=== PATIENT | male | born 1940 | race Two or more races ===

== ENCOUNTER 2017-12-29 13:41 | Inpatient (IN) | payer MEDICARE, OTHER ==
[2017-12-29 13:57] VITALS: BMI 23.7
--- NOTE | 2017-12-29 14:39 | PDOC ---
History of Present Illness - General History Source: Patient - History of Present Illness Initial Comments: 12/29/17 16:03 The patient is a 77-year-old male with a significant past medical history of Parkinsons disease, who presents to the emergency department from his GI doctor with weakness and loss of appetite. As per daughter, the patient has not been eating or drinking well for the past week. The patient reports that this is due to increased difficulty swallowing and loss of appetite. Patients daughter states he is gasping when he attempts to swallow, and therefore has difficulty taking his Parkinsons medications. The daughter states the patient has been having difficulty breathing at night for two weeks. The patient states he is tired and has been sleeping a lot, but denies any significant pain. Patient also admits to constipation and mild dysuria. Patient is ambulatory with a cane at baseline. The patient denies chest pain, leg swelling, headache, visual changes, and dizziness. The patient denies fever, chills, abdominal pain, nausea, vomit, and diarrhea. The patient denies frequency, urgency and hematuria.He denies any chest pain, back pain. Allergies: penicillins Social History: No toxic habits reported PCP: Dr. Susan Jimenez <Jyoti Carpenter - Last Filed: 12/29/17 16:03> <Sunita Zamorano - Last Filed: 12/29/17 20:33> <Ariel Kline - Last Filed: 12/30/17 08:26> - General Chief Complaint: Weakness Stated Complaint: BLOOD PRESSURE PROBLEM (PCP SENT) Time Seen by Provider: 12/29/17 14:15 Past History <Jyoti Carpenter - Last Filed: 12/29/17 16:03> <Sunita Zamorano - Last Filed: 12/29/17 20:33> - Past Medical History COPD: No HTN: Yes Other medical history: PARKINSON, ON COUMADIN FOR BLEED CLOTTING DISORDER - Surgical History Abdominal Surgery: Yes (ING HERNIA) - Suicide/Smoking/Psychosocial Hx Smoking History: Never smoked Have you smoked in the past 12 months: No Information on smoking cessation initiated: No Hx Alcohol Use: No Drug/Substance Use Hx: No Substance Use Type: None <Ariel Kline - Last Filed: 12/30/17 08:26> - Past Medical History Allergies/Adverse Reactions: Allergies Allergy/AdvReac Type Severity Reaction Status Date / Time Penicillins Allergy Verified 12/29/17 13:52 Home Medications: Ambulatory Orders Atorvastatin Ca [Lipitor] 80 mg PO HS 12/29/17 Carbidopa/Levodopa *Cr* 50/200 [Sinemet *Cr* 50/200 -] 1 combo PO BID 12/29/17 Carbidopa/Levodopa 25/100 [Sinemet 25/100 -] 1 each PO TID 12/29/17 Diphenhydramine [Benadryl -] 25 mg PO DAILY 12/29/17 Losartan Potassium 100 mg PO DAILY 12/29/17 Metoprolol Succinate 50 mg PO DAILY 12/29/17 Omeprazole 40 mg PO DAILY 12/29/17 Rasagiline Mesylate 1 mg PO DAILY 12/29/17 Ropinirole HCl 0.5 mg PO DAILY 12/29/17 Ropinirole HCl [Ropinirole ER] 2 mg PO DAILY 12/29/17 Tamsulosin HCl 0.4 mg PO DAILY 12/29/17 Warfarin Sodium [Coumadin] 1 mg PO ASDIR 12/29/17 Warfarin Sodium [Coumadin] 4 mg PO ASDIR 12/29/17 Review of Systems - Review of Systems Able to Perform ROS?: Yes Comments:: 12/29/17 16:04 CONSTITUTIONAL: (+) Generalized Weakness, (+) Loss of Appetite No reported: Fever, Chills, Diaphoresis, Malaise HEENT: (+) Difficulty Swallowing No reported: Rhinorrhea, Nasal Congestion, Throat Pain, Throat Swelling, Mouth Swelling, Ear Pain, Eye Pain, Visual Changes CARDIOVASCULAR: No reported: Chest Pain, Syncope, Palpitations, Irregular Heart Rate, Lightheadedness, Peripheral Edema RESPIRATORY: (+) Shortness of Breath No reported: Cough, SOB with Exertion, Orthopnea, Wheezing, Stridor, Hemoptysis GASTROINTESTINAL: No reported: Abdominal pain, Abdominal Distension, Nausea, Vomiting, Diarrhea, Constipation, Melena, Hematochezia GENITOURINARY: (+) Dysuria No reported: Frequency, Urgency, Hesitancy, Flank Pain, Genital Pain MUSCULOSKELETAL: No reported: Myalgia, Arthralgia, Joint Swelling, Back pain, Neck Pain SKIN: No reported: Rash, Itching, Pallor HEMEATOLOGIC/IMMUNOLOGIC: No reported: Easy Bleeding, Easy Bruising, Lymphadenopathy, Frequent infections ENDOCRINE: No reported: Unexplained Weight Gain, Unexplained Weight Loss, Heat Intolerance , Cold Intolerance NEUROLOGIC: No reported: Headache, Focal Weakness, Paresthesias, Vertigo, Lightheadedness, Unsteady Gait, Seizure, Mental Status Changes, Incontinence PSYCHIATRIC: No reported: Anxiety, Depression <CarpenterSommerJyoti - Last Filed: 12/29/17 16:03> *Physical Exam - Vital Signs Last Vital Signs Temp Pulse Resp BP Pulse Ox 99.2 F 97 H 16 153/105 100 12/29/17 14:24 12/29/17 15:52 12/29/17 13:53 12/29/17 15:52 12/29/17 13:53 - Physical Exam Comments: 12/29/17 16:05 GENERAL: The patient is awake, alert, and fully oriented, Nontoxic - in no acute distress. HEAD: Normocephalic, atraumatic. EYES: extraocular movements intact, sclera anicteric, conjunctiva clear. ENT: Normal voice, drymucous membranes. NECK: Normal range of motion, supple LUNGS: Breath sounds equal, clear to auscultation bilaterally. No wheezes, no rhonchi, no rales. HEART: irregular ABDOMEN: Soft, nontender, No CVA tenderness EXTREMITIES: Normal range of motion, no edema. No clubbing or cyanosis. No cords, erythema, or tenderness. NEUROLOGICAL: No facial assymetry, Normal speech, PSYCH: Normal mood, normal affect. SKIN: Warm, Dry, normal turgor, <Kp Carpentera - Last Filed: 12/29/17 16:03> - Vital Signs Last Vital Signs Temp Pulse Resp BP Pulse Ox 99.2 F 85 20 187/110 100 12/29/17 14:24 12/29/17 19:11 12/29/17 19:11 12/29/17 19:11 12/29/17 19:11 <Sunita Zamorano - Last Filed: 12/29/17 20:33> - Vital Signs Last Vital Signs Temp Pulse Resp BP Pulse Ox 99.2 F 107 H 16 172/121 100 12/29/17 14:24 12/29/17 13:53 12/29/17 13:53 12/29/17 13:53 12/29/17 13:53 <Ariel Kline - Last Filed: 12/30/17 08:26> Heart Score/ECG Review - ECG Impressions Comment:: 12/29/17 15:33 Twelve-lead EKG was performed and reviewed by me. rate of [address] changes suggestif of ischemia impression: afib <Ariel Kline - Last Filed: 12/30/17 08:26> ED Treatment Course - LABORATORY CBC & Chemistry Diagram: 12/29/17 14:44 12/29/17 14:44 - ADDITIONAL ORDERS Additional order review: Laboratory Results 12/29/17 12/29/17 14:44 14:44 Sodium 137 Potassium 3.6 Chloride 101 Carbon Dioxide 27 Anion Gap 9 BUN 18 Creatinine 0.9 Creat Clearance w eGFR > 60 Random Glucose 91 Calcium 8.4 L Total Bilirubin 0.5 AST 20 ALT 12 Alkaline Phosphatase 127 H Creatine Kinase 81 Troponin I 0.02 B-Natriuretic Peptide 1838.72 H Total Protein 7.9 Albumin 3.8 12/29/17 14:44 RBC 4.81 MCV 90.2 MCHC 33.7 RDW 13.6 MPV 8.3 Neutrophils % 71.8 Lymphocytes % 12.3 Monocytes % 8.8 Eosinophils % 6.4 H Basophils % 0.7 <Jyoti Carpenter - Last Filed: 12/29/17 16:03> - LABORATORY CBC & Chemistry Diagram: 12/29/17 14:44 12/29/17 14:44 - ADDITIONAL ORDERS Additional order review: Laboratory Results 12/29/17 12/29/17 12/29/17 14:44 14:44 14:44 Sodium 137 Potassium 3.6 Chloride 101 Carbon Dioxide 27 Anion Gap 9 BUN 18 Creatinine 0.9 Creat Clearance w eGFR > 60 Random Glucose 91 Calcium 8.4 L Total Bilirubin 0.5 AST 20 ALT 12 Alkaline Phosphatase 127 H Creatine Kinase 81 Troponin I 0.02 B-Natriuretic Peptide 1838.72 H Total Protein 7.9 Albumin 3.8 Urine Color Yellow Urine Appearance Clear Urine pH 7.0 Ur Specific [place] 1.015 Urine Protein 1+ H Urine Glucose (UA) Negative Urine Ketones Negative Urine Blood Negative Urine Nitrite Negative Urine Bilirubin Negative Urine Urobilinogen Negative Ur Leukocyte Esterase Negative Urine WBC (Auto) <1 Urine RBC (Auto) 3 Ur Epithelial Cells Rare 12/29/17 14:44 RBC 4.81 MCV 90.2 MCHC 33.7 RDW 13.6 MPV 8.3 Neutrophils % 71.8 Lymphocytes % 12.3 Monocytes % 8.8 Eosinophils % 6.4 H Basophils % 0.7 - Medications Given in the ED: ED Medications Discontinued Medications Generic Name Dose Route Start Last Admin Trade Name Rosemary PRN Reason Stop Dose Admin Furosemide 40 mg 12/29/17 16:46 12/29/17 19:17 Lasix Injection - IVPUSH 12/29/17 16:47 40 mg ONCE ONE Administration <Sunita Zamorano - Last Filed: 12/29/17 20:33> - LABORATORY CBC & Chemistry Diagram: 12/30/17 06:30 12/30/17 06:30 <Ariel Kline - Last Filed: 12/30/17 08:26> Medical Decision Making - Medical Decision Making 12/29/17 14:40 77y M hx of htn, severe parkinsons presents sent by GI for evaluation of possible dehydration. pt has been having difficult swallowing, and family notes pt has been eating/drinking much less. pt also notes some mild sob when he is abmulating. n oothe rfocal complaints including cp, abd pain, n/v, headache diarrhea, dysuria, hematuria. on exam he has a nonfocal exam will r/o metabolic dernagement A portion of this note was documented by scribe services under my direction. I have reviewed the details of the note, within reason, and agree with the documentation with the following case summary and management plan written by me 12/29/17 17:[address] wallace - was sent to him due to difficulty swallowing, and he came in with a towl on his chest he requests a CT of the chets to r/o mass will likely admit the pt for further management pmd is dr. jimenez, if admitted will likely be under dr. kuhn service case signed out to dr. zamorano to fu with results and dispo the pt <Ariel Kline - Last Filed: 12/30/17 08:26> *DC/Admit/Observation/Transfer - Attestations Scribe Attestion: 12/29/17 16:05 Documentation prepared by Jyoti Carpenter, acting as biomedical specialist for Ariel Kline MD, /DO. <Jyoti Carpenter - Last Filed: 12/29/17 16:03> - Discharge Dispostion Admit: Yes <Sunita Zamorano - Last Filed: 12/29/17 20:33> <Ariel Kline - Last Filed: 12/30/17 08:26> Diagnosis at time of Disposition: Poorly controlled blood pressure, Parkinson disease Dysphagia Qualifiers: Dysphagia type: unspecified Qualified Code(s): R13.10 - Dysphagia, unspecified
[2017-12-29 15:01] LABS: BASO % 0.7 % (0-2.0); EOS % 6.4 % (0-4.5); HEMATOCRIT 43.4 % (35.4-49); HEMOGLOBIN 14.6 GM/dL (11.7-16.9); LYMPH % 12.3 % (8-40); MCH 30.4 pg (25.7-33.7); MCHC 33.7 g/dl (32.0-35.9); MEAN CELL VOLUME 90.2 fl (80-96); MEAN PLT VOLUME 8.3 fl (7.5-11.1); MONO % 8.8 % (3.8-10.2); NEUT % 71.8 % (42.8-82.8); PLATELET COUNT 221 K/MM3 (134-434); RBC 4.81 M/mm3 (4.00-5.60); RDW 13.6 % (11.9-15.9); WHITE BLOOD COUNT 10.3 K/mm3 (4.0-10.0)
[2017-12-29 15:26] LABS: ALBUMIN 3.8 g/dl (3.4-5.0); ANION GAP 9 (8-16); BILIRUBIN,TOTAL 0.5 mg/dL (0.2-1.0); BLOOD UREA NITROGEN 18 mg/dL (7-18); CALCIUM 8.4 mg/dL (8.5-10.1); CHLORIDE 101 mmol/L (98-107); CO2 27 mmol/L (21-32); CREATININE 0.9 mg/dL (0.7-1.3); GLUCOSE,RANDOM 91 mg/dL (74-106); POTASSIUM 3.6 mmol/L (3.5-5.1); SGPT/ALT 12 U/L (12-78); SODIUM 137 mmol/L (136-145); TOT PROT 7.9 g/dl (6.4-8.2)
[2017-12-29 15:29] LABS: ALK PHOS 127 U/L (45-117); SGOT/AST 20 U/L (15-37)
[2017-12-29 16:00] LABS: URINE APPEARANCE CLEAR; URINE BILIRUBIN NEGATIVE (NEGATIVE); URINE BLOOD NEGATIVE (NEGATIVE); URINE COLOR YELLOW; URINE GLUCOSE (UA) NEGATIVE (NEGATIVE); URINE KETONE NEGATIVE (NEGATIVE); URINE LEUK ESTERASE NEGATIVE (NEGATIVE); URINE NITRITE NEGATIVE (NEGATIVE); URINE UROBILINOGEN NEGATIVE mg/dL (0.2-1.0)
[2017-12-29 16:04] LABS: URINE PROTEIN 1+ (NEGATIVE)
[2017-12-29] MEDS ORDERED: FUROSEMIDE 40 MG/4 ML INJECTABLE VIAL IVPUSH ONE (16:46)
[2017-12-29 17:07] LABS: EPI CELLS RARE /HPF (FEW)
[2017-12-29] MEDS ORDERED: FUROSEMIDE 40 MG/4 ML INJECTABLE VIAL ONE (19:12)
[2017-12-29] MEDS ORDERED: amLODIPine BESYLATE 10 MG TABLET (FP) PO ONE (20:28)
[2017-12-29] MEDS ORDERED: amLODIPine BESYLATE 5 MG TABLET (FP) ONE (20:30)
[2017-12-29] MEDS ORDERED: METOPROLOL TARTRATE 5 MG/5 ML VIAL IVPUSH ONE ×2 (20:31→23:58)
[2017-12-29] MEDS ORDERED: METOPROLOL TARTRATE 5 MG/5 ML VIAL ONE (20:32)
--- NOTE | 2017-12-29 20:34 | HP ---
Admitting History and Physical - Primary Care Physician PCP: Susan Martinez - Admission Chief Complaint: Weakness, Dysphagia History of Present Illness: This is a 77 y/o man with a significant past medical history of Parkinson's disease. Who presents to the emergency department from his GI doctor with weakness and loss of appetite. Per ED record: As per daughter, the patient has not been eating or drinking well for the past week. The patient reports that this is due to increased difficulty swallowing and loss of appetite. Patients daughter states he is gasping when he attempts to swallow, and therefore has difficulty taking his Parkinsons medications. The daughter states the patient has been having difficulty breathing at night for two weeks. The patient states he is tired and has been sleeping a lot, but denies any significant pain. Patient also admits to constipation and mild dysuria. Patient is ambulatory with a cane at baseline. The patient denies chest pain, leg swelling, headache, visual changes, and dizziness. The patient denies fever, chills, abdominal pain, nausea, vomit, and diarrhea. The patient denies frequency, urgency and hematuria.He denies any chest pain, back pain. 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 - Smoking History Smoking history: Never smoked Have you smoked in the past 12 months: No - Alcohol/Substance Use Hx Alcohol Use: No History of Substance Use: reports: None - Social History Usual Living Arrangement: Yes: With Child ADL: Family Assistance History of Recent Travel: No Home Medications - Allergies Allergies/Adverse Reactions: Allergies Allergy/AdvReac Type Severity Reaction Status Date / Time Penicillins Allergy Verified 12/29/17 13:52 - Home Medications Home Medications: Ambulatory Orders Atorvastatin Ca [Lipitor] 80 mg PO HS 12/29/17 Carbidopa/Levodopa *Cr* 50/200 [Sinemet *Cr* 50/200 -] 1 combo PO BID 12/29/17 Carbidopa/Levodopa 25/100 [Sinemet 25/100 -] 1 each PO TID 12/29/17 Diphenhydramine [Benadryl -] 25 mg PO DAILY 12/29/17 Losartan Potassium 100 mg PO DAILY 12/29/17 Metoprolol Succinate 50 mg PO DAILY 12/29/17 Omeprazole 40 mg PO DAILY 12/29/17 Rasagiline Mesylate 1 mg PO DAILY 12/29/17 Ropinirole HCl 0.5 mg PO DAILY 12/29/17 Ropinirole HCl [Ropinirole ER] 2 mg PO DAILY 12/29/17 Tamsulosin HCl 0.4 mg PO DAILY 12/29/17 Warfarin Sodium [Coumadin] 1 mg PO ASDIR 12/29/17 Warfarin Sodium [Coumadin] 4 mg PO ASDIR 12/29/17 Family Disease History - Family Disease History Family History: Unable to Obtain Review of Systems Unable to obtain ROS, reason: Clinical Condition Physical Examination Vital Signs: Vital Signs Temperature 99.2 F 12/29/17 14:24 Pulse Rate 85 12/29/17 19:11 Respiratory Rate 20 12/29/17 19:11 Blood Pressure 187/110 12/29/17 19:11 O2 Sat by Pulse Oximetry (%) 100 12/29/17 19:11 Constitutional: Yes: No Distress, Calm, Thin Eyes: Yes: WNL, Conjunctiva Clear, EOM Intact, PERRL HENT: Yes: WNL, Atraumatic, Normocephalic Neck: Yes: WNL, Supple, Trachea Midline Cardiovascular: Yes: Pulse Irregular, Murmur, S1, S2 Respiratory: Yes: WNL, Regular, CTA Bilaterally Gastrointestinal: Yes: WNL, Normal Bowel Sounds, Soft ...Rectal Exam: Yes: Deferred Renal/: Yes: [place] Present (yellow urine in drainage bag) Breast(s): Yes: WNL Musculoskeletal: Yes: WNL Extremities: Yes: WNL Edema: No Peripheral Pulses WNL: Yes Neurological: Yes: Alert, Oriented, Weakness ...Motor Strength: LUE (3/5), LLE (3/5), RUE (3/5), RLE (3/5) Psychiatric: Yes: WNL, Alert, Oriented Labs: CBC, BMP 12/29/17 14:44 12/29/17 14:44 Intake & Output 12/27/17 12/28/17 12/29/17 12/30/17 23:59 23:59 23:59 23:59 Output Total 400 Balance -400 Weight 77.111 kg Laboratory Results - last 24 hr 12/29/17 12/29/17 12/29/17 14:44 14:44 14:44 WBC 10.3 H RBC 4.81 Hgb 14.6 Hct 43.4 MCV 90.2 MCH 30.4 MCHC 33.7 RDW 13.6 Plt Count 221 MPV 8.3 Neutrophils % 71.8 Lymphocytes % 12.3 Monocytes % 8.8 Eosinophils % 6.4 H Basophils % 0.7 PT with INR INR Sodium 137 Potassium 3.6 Chloride 101 Carbon Dioxide 27 Anion Gap 9 BUN 18 Creatinine 0.9 Creat Clearance w eGFR > 60 Random Glucose 91 Calcium 8.4 L Total Bilirubin 0.5 AST 20 ALT 12 Alkaline Phosphatase 127 H Creatine Kinase 81 Troponin I 0.02 B-Natriuretic Peptide Total Protein 7.9 Albumin 3.8 Urine Color Yellow Urine Appearance Clear Urine pH 7.0 Ur Specific [place] 1.015 Urine Protein 1+ H Urine Glucose (UA) Negative Urine Ketones Negative Urine Blood Negative Urine Nitrite Negative Urine Bilirubin Negative Urine Urobilinogen Negative Ur Leukocyte Esterase Negative Urine WBC (Auto) <1 Urine RBC (Auto) 3 Ur Epithelial Cells Rare 12/29/17 12/29/17 14:44 20:20 WBC RBC Hgb Hct MCV MCH MCHC RDW Plt Count MPV Neutrophils % Lymphocytes % Monocytes % Eosinophils % Basophils % PT with INR 57.50 H INR 5.09 H* Sodium Potassium Chloride Carbon Dioxide Anion Gap BUN Creatinine Creat Clearance w eGFR Random Glucose Calcium Total Bilirubin AST ALT Alkaline Phosphatase Creatine Kinase Troponin I B-Natriuretic Peptide 1838.72 H Total Protein Albumin Urine Color Urine Appearance Urine pH Ur Specific [place] Urine Protein Urine Glucose (UA) Urine Ketones Urine Blood Urine Nitrite Urine Bilirubin Urine Urobilinogen Ur Leukocyte Esterase Urine WBC (Auto) Urine RBC (Auto) Ur Epithelial Cells Imaging - Results EKG: Image Reviewed (Afib 98 QT/QTc 350/449) Problem List - Problems (1) Uncontrolled hypertension Code(s): I10 - ESSENTIAL (PRIMARY) HYPERTENSION (2) DVT prophylaxis Code(s): [id number] - (3) Dysphagia Code(s): R13.10 - DYSPHAGIA, UNSPECIFIED Qualifiers: Dysphagia type: unspecified Qualified Code(s): R13.10 - Dysphagia, unspecified (4) Parkinson disease Code(s): G20 - PARKINSON'S DISEASE Assessment/Plan This is a 77 y/o man with a PMHx of Parkinson's Disease, Afib ( on Coumadin). Admitted to [facility] for Dysphagia, Generalized Weakness. Problems: Dysphagia Hypertensive Urgency Generalized Weakness Supratherapeutic INR Afib Parkinson's Disease Plan: 1. GI Dysphagia Appreciate GI consult EGD Swallow Eval NPO 2. Cardiology Hypertensive Urgency Afib Likely secondary to dysphagia Lopressor IV Cardiology Consult EKG reviewed- Afib rate control Patient upgraded to Tele secondary to Hypertensive Urgency Patient's BP 190s-200s/100s-120s, after Lopressor IV x2, Labetolol IV x2- started patient on Labetolol Drip this am [id number]-Discussed case with Dr. Soliman, who accepted the patient to ICU Per recommendation, NGT for BP meds will wait till INR reviewed secondary to Supratherapeutic 5.0 3. Neuro Parkinson's, Generalized Weakness: likely secondary to dehydration, poor appetite neuro checks, fall precautions, monitor vitals 4.Heme Supratherapeutic INR- Hold Coumadin, no active bleed Serial INRs Fall Precautions FEN NS@30cc/hr Replete lytes prn NPO Code Status: Full Code Dispo: Requires Inpatient Care Visit type - Emergency Visit Emergency Visit: Yes ED Registration Date: 12/29/17 Care time: The patient presented to the Emergency Department on the above date and was hospitalized for further evaluation of their emergent condition. - New Patient This patient is new to me today: Yes Date on this admission: 12/29/17 - Critical Care Critical Care patient: Yes Total Critical Care Time (in minutes): 75 Critical Care Statement: The care of this patient involved high complexity decision making to prevent further life threatening deterioration of the patient 's condition and/or to evaluate & treat vital organ system(s) failure or risk of failure.
--- NOTE | 2017-12-29 20:36 | PDOC ---
*Physical Exam - Vital Signs Last Vital Signs Temp Pulse Resp BP Pulse Ox 99.2 F 85 20 187/110 100 12/29/17 14:24 12/29/17 19:11 12/29/17 19:11 12/29/17 19:11 12/29/17 19:11 ED Treatment Course - LABORATORY CBC & Chemistry Diagram: 12/29/17 14:44 12/29/17 14:44 - ADDITIONAL ORDERS Additional order review: Laboratory Results 12/29/17 12/29/17 12/29/17 14:44 14:44 14:44 Sodium 137 Potassium 3.6 Chloride 101 Carbon Dioxide 27 Anion Gap 9 BUN 18 Creatinine 0.9 Creat Clearance w eGFR > 60 Random Glucose 91 Calcium 8.4 L Total Bilirubin 0.5 AST 20 ALT 12 Alkaline Phosphatase 127 H Creatine Kinase 81 Troponin I 0.02 B-Natriuretic Peptide 1838.72 H Total Protein 7.9 Albumin 3.8 Urine Color Yellow Urine Appearance Clear Urine pH 7.0 Ur Specific [place] 1.015 Urine Protein 1+ H Urine Glucose (UA) Negative Urine Ketones Negative Urine Blood Negative Urine Nitrite Negative Urine Bilirubin Negative Urine Urobilinogen Negative Ur Leukocyte Esterase Negative Urine WBC (Auto) <1 Urine RBC (Auto) 3 Ur Epithelial Cells Rare 12/29/17 14:44 RBC 4.81 MCV 90.2 MCHC 33.7 RDW 13.6 MPV 8.3 Neutrophils % 71.8 Lymphocytes % 12.3 Monocytes % 8.8 Eosinophils % 6.4 H Basophils % 0.7 - Medications Given in the ED: ED Medications Discontinued Medications Generic Name Dose Route Start Last Admin Trade Name Freq PRN Reason Stop Dose Admin Furosemide 40 mg 12/29/17 16:46 12/29/17 19:17 Lasix Injection - IVPUSH 12/29/17 16:47 40 mg ONCE ONE Administration Medical Decision Making - Medical Decision Making 12/29/17 20:33 pt given lopressor IV for hypertension,unable to swallow po pills spoke with hospitalist, Dr Espinla ,admit med/surg ct sacn abd/pel: no esophageal mass,b/l upper lobe bullae, 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
[2017-12-29 20:56] LABS: PROTHROMBIN TIME (PATIENT) 57.5 SEC (9.98-11.88)
[2017-12-29 21:01] LABS: INR 5.09 (0.82-1.09)
[2017-12-30] MEDS ORDERED: LABETALOL HCL 5 MG/1 ML (100MG/20 ML VIAL) IVPUSH ONE ×2 (01:48→04:20)
[2017-12-30] MEDS ORDERED: LABETALOL HCL 5 MG/1 ML (200MG/40ML VIAL) IVPB ONE (02:06)
[2017-12-30] MEDS ORDERED: LABETALOL HCL INJECTION 1,000 MG in DEXTROSE 5%-WATER - 800 ML IV SCH (06:45)
[2017-12-30 06:49] LABS: BASO % 0.6 % (0-2.0); HEMATOCRIT 45.7 % (35.4-49); HEMOGLOBIN 15.5 GM/dL (11.7-16.9); LYMPH % 10.3 % (8-40); MCH 30.3 pg (25.7-33.7); MCHC 33.9 g/dl (32.0-35.9); MEAN CELL VOLUME 89.1 fl (80-96); MONO % 7.8 % (3.8-10.2); NEUT % 71.3 % (42.8-82.8); PLATELET COUNT 250 K/MM3 (134-434); RBC 5.13 M/mm3 (4.00-5.60); RDW 13.7 % (11.9-15.9); WHITE BLOOD COUNT 10.8 K/mm3 (4.0-10.0)
[2017-12-30 07:38] LABS: ANION GAP 8 (8-16); BLOOD UREA NITROGEN 18 mg/dL (7-18); CALCIUM 8.4 mg/dL (8.5-10.1); CHLORIDE 99 mmol/L (98-107); CO2 30 mmol/L (21-32); CREATININE 0.9 mg/dL (0.7-1.3); GLUCOSE,RANDOM 104 mg/dL (74-106); MAGNESIUM 1.9 mg/dL (1.8-2.4); PHOSPHOROUS 3.3 mg/dL (2.5-4.9); POTASSIUM 3.4 mmol/L (3.5-5.1); SODIUM 137 mmol/L (136-145)
[2017-12-30 09:23] LABS: PROTHROMBIN TIME (PATIENT) 46.6 SEC (9.98-11.88)
[2017-12-30 09:25] LABS: BASO % 0.5 % (0-2.0); EOS % 9.1 % (0-4.5); HEMATOCRIT 47.5 % (35.4-49); HEMOGLOBIN 15.6 GM/dL (11.7-16.9); LYMPH % 11.4 % (8-40); MCH 29.6 pg (25.7-33.7); MCHC 32.9 g/dl (32.0-35.9); MEAN CELL VOLUME 89.8 fl (80-96); MEAN PLT VOLUME 8.5 fl (7.5-11.1); MONO % 8.3 % (3.8-10.2); NEUT % 70.7 % (42.8-82.8); PLATELET COUNT 240 K/MM3 (134-434); RBC 5.29 M/mm3 (4.00-5.60); RDW 13.8 % (11.9-15.9); WHITE BLOOD COUNT 10.7 K/mm3 (4.0-10.0)
[2017-12-30 09:36] LABS: INR 4.12 (0.82-1.09)
[2017-12-30] MEDS ORDERED: MUPIROCIN 2% TOPICAL OINTMENT FOR DECOLONIZATION NS SCH (10:00)
--- NOTE | 2017-12-30 11:18 | CON.CARD ---
Consult Consult Specialty:: Cardiology Referred by:: Hospitalist Reason for Consultation:: Hypertensive urgency - History of Present Illness History of Present Illness: Patient is a 77 year old gentleman with underlying history of Parkinson 's Disease, atrial fibrillation on chronic anticoagulation with Warfarin, history of CVA with no major residual deficit (admitted to [facility] in the past), hypertension and hypercholesterolemia who presents with weakness, loss of appetite and difficulty swallowing. He denies chest pain, shortness of breath. He denies paroxysmal nocturnal dyspnea or orthopnea. He denies fever or chills. He denies nausea, vomiting, diarrhea or abdominal pain at this time. He denies headache or lightheadedness. His daughter has expressed that patient has been having difficulty ambulating and has fall risk. He has not had any syncopal episodes. Currently, he was given Labetalol and drip was started due to hypertensive urgency. INR was found to be supratherapeutic, but currently does not exhibit any bleeding. 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) Cardio/Vascular: Yes: AFIB, HTN, Hyperlipdemia - Past Surgical History Past Surgical History: Yes: Joint Replacement - Alcohol/Substance Use Hx Alcohol Use: No History of Substance Use: reports: None - Smoking History Smoking history: Never smoked Have you smoked in the past 12 months: No - Social History ADL: Family Assistance History of Recent Travel: No Home Medications - Allergies Allergies/Adverse Reactions: Allergies Allergy/AdvReac Type Severity Reaction Status Date / Time Penicillins Allergy Verified 12/29/17 13:52 - Home Medications Home Medications: Ambulatory Orders Atorvastatin Ca [Lipitor] 80 mg PO HS 12/29/17 Carbidopa/Levodopa *Cr* 50/200 [Sinemet *Cr* 50/200 -] 1 combo PO BID 12/29/17 Carbidopa/Levodopa 25/100 [Sinemet 25/100 -] 1 each PO TID 12/29/17 Diphenhydramine [Benadryl -] 25 mg PO DAILY 12/29/17 Losartan Potassium 100 mg PO DAILY 12/29/17 Metoprolol Succinate 50 mg PO DAILY 12/29/17 Omeprazole 40 mg PO DAILY 12/29/17 Rasagiline Mesylate 1 mg PO DAILY 12/29/17 Ropinirole HCl 0.5 mg PO DAILY 12/29/17 Ropinirole HCl [Ropinirole ER] 2 mg PO DAILY 12/29/17 Tamsulosin HCl 0.4 mg PO DAILY 12/29/17 Warfarin Sodium [Coumadin] 1 mg PO ASDIR 12/29/17 Warfarin Sodium [Coumadin] 4 mg PO ASDIR 12/29/17 Family Disease History - Family Disease History Family History: Denies Review of Systems - Review of Systems Constitutional: denies: Chills, Fever Cardiovascular: denies: Chest Pain, Palpitations, Shortness of Breath Respiratory: denies: Cough, Hemoptysis, Orthopnea, PND, SOB, SOB on Exertion Gastrointestinal: denies: Abdominal Pain, Constipation, Diarrhea, Melena, Nausea , Rectal Bleeding, Vomiting Neurological: reports: Unsteady Gait, Weakness. denies: Dizziness, Headache, Seizure, Syncope Vital Signs: Vital Signs Temperature 98.3 F 12/30/17 07:31 Pulse Rate 74 12/30/17 10:45 Respiratory Rate 20 12/30/17 10:45 Blood Pressure 187/114 12/30/17 10:45 O2 Sat by Pulse Oximetry (%) 99 12/30/17 10:45 Neck: Yes: Supple Respiratory: Yes: Diminished Gastrointestinal: Yes: Normal Bowel Sounds, Soft. No: Tenderness Cardiovascular: Yes: Pulse Irregular JVD: No Carotid Bruit: No PMI: Non-Displaced Heart Sounds: Yes: S1, S2. No: Gallop Murmur: Yes: Systolic Murmur, Grade 1 Edema: No - Other Data Labs, Other Data: CBC, BMP 12/30/17 08:10 12/30/17 06:30 INR, PTT INR 4.12 (0.82-1.09) H* 12/30/17 08:10 Troponin, BNP 12/29/17 12/29/17 12/30/17 14:44 14:44 06:30 Troponin I 0.02 < 0.02 B-Natriuretic Peptide 1838.72 H Laboratory Results - last 24 hr 12/29/17 12/29/17 12/29/17 14:44 14:44 14:44 WBC 10.3 H RBC 4.81 Hgb 14.6 Hct 43.4 MCV 90.2 MCH 30.4 MCHC 33.7 RDW 13.6 Plt Count 221 MPV 8.3 Neutrophils % 71.8 Lymphocytes % 12.3 Monocytes % 8.8 Eosinophils % 6.4 H Basophils % 0.7 PT with INR INR Sodium 137 Potassium 3.6 Chloride 101 Carbon Dioxide 27 Anion Gap 9 BUN 18 Creatinine 0.9 Creat Clearance w eGFR > 60 Random Glucose 91 Calcium 8.4 L Phosphorus Magnesium Total Bilirubin 0.5 AST 20 ALT 12 Alkaline Phosphatase 127 H Creatine Kinase 81 Troponin I 0.02 B-Natriuretic Peptide Total Protein 7.9 Albumin 3.8 Urine Color Yellow Urine Appearance Clear Urine pH 7.0 Ur Specific [place] 1.015 Urine Protein 1+ H Urine Glucose (UA) Negative Urine Ketones Negative Urine Blood Negative Urine Nitrite Negative Urine Bilirubin Negative Urine Urobilinogen Negative Ur Leukocyte Esterase Negative Urine WBC (Auto) <1 Urine RBC (Auto) 3 Ur Epithelial Cells Rare 12/29/17 12/29/17 12/30/17 14:44 20:20 06:30 WBC 10.8 H RBC 5.13 Hgb 15.5 Hct 45.7 MCV 89.1 MCH 30.3 MCHC 33.9 RDW 13.7 Plt Count 250 MPV 8.0 Neutrophils % 71.3 Lymphocytes % 10.3 Monocytes % 7.8 Eosinophils % 10.0 H Basophils % 0.6 PT with INR 57.50 H INR 5.09 H* Sodium Potassium Chloride Carbon Dioxide Anion Gap BUN Creatinine Creat Clearance w eGFR Random Glucose Calcium Phosphorus Magnesium Total Bilirubin AST ALT Alkaline Phosphatase Creatine Kinase Troponin I B-Natriuretic Peptide 1838.72 H Total Protein Albumin Urine Color Urine Appearance Urine pH Ur Specific [place] Urine Protein Urine Glucose (UA) Urine Ketones Urine Blood Urine Nitrite Urine Bilirubin Urine Urobilinogen Ur Leukocyte Esterase Urine WBC (Auto) Urine RBC (Auto) Ur Epithelial Cells 12/30/17 12/30/17 12/30/17 06:30 06:30 08:10 WBC RBC Hgb Hct MCV MCH MCHC RDW Plt Count MPV Neutrophils % Lymphocytes % Monocytes % Eosinophils % Basophils % PT with INR 46.60 H INR 4.12 H* Sodium 137 Potassium 3.4 L Chloride 99 Carbon Dioxide 30 Anion Gap 8 BUN 18 Creatinine 0.9 Creat Clearance w eGFR Random Glucose 104 Calcium 8.4 L Phosphorus 3.3 Magnesium 1.9 Total Bilirubin AST ALT Alkaline Phosphatase Creatine Kinase Troponin I < 0.02 B-Natriuretic Peptide Total Protein Albumin Urine Color Urine Appearance Urine pH Ur Specific [place] Urine Protein Urine Glucose (UA) Urine Ketones Urine Blood Urine Nitrite Urine Bilirubin Urine Urobilinogen Ur Leukocyte Esterase Urine WBC (Auto) Urine RBC (Auto) Ur Epithelial Cells 12/30/17 08:10 WBC 10.7 H RBC 5.29 Hgb 15.6 Hct 47.5 MCV 89.8 MCH 29.6 MCHC 32.9 RDW 13.8 Plt Count 240 MPV 8.5 Neutrophils % 70.7 Lymphocytes % 11.4 Monocytes % 8.3 Eosinophils % 9.1 H Basophils % 0.5 PT with INR INR Sodium Potassium Chloride Carbon Dioxide Anion Gap BUN Creatinine Creat Clearance w eGFR Random Glucose Calcium Phosphorus Magnesium Total Bilirubin AST ALT Alkaline Phosphatase Creatine Kinase Troponin I B-Natriuretic Peptide Total Protein Albumin Urine Color Urine Appearance Urine pH Ur Specific [place] Urine Protein Urine Glucose (UA) Urine Ketones Urine Blood Urine Nitrite Urine Bilirubin Urine Urobilinogen Ur Leukocyte Esterase Urine WBC (Auto) Urine RBC (Auto) Ur Epithelial Cells Atrial fibrillation, right bundle branch block. left axis deviation, left anterior fasicular block Echo: Pending Imaging - Results Chest X-ray: Report Reviewed (Cardiomegaly, mild congestion) Cat Scan: Report Reviewed (Chest CT no esophageal mass, but with small pulmonary nodule, mild ascending aortic aneurysm (4 cm)) EKG: Report Reviewed Problem List - Problems (1) CVA (cerebral vascular accident) Code(s): I63.9 - CEREBRAL INFARCTION, UNSPECIFIED (2) Unsteady gait Code(s): R26.81 - UNSTEADINESS ON FEET (3) Hypercholesterolemia Code(s): E78.00 - PURE HYPERCHOLESTEROLEMIA, UNSPECIFIED (4) Dysphagia Code(s): R13.10 - DYSPHAGIA, UNSPECIFIED Qualifiers: Dysphagia type: unspecified Qualified Code(s): R13.10 - Dysphagia, unspecified (5) Parkinson disease Code(s): G20 - PARKINSON'S DISEASE (6) Uncontrolled hypertension Code(s): I10 - ESSENTIAL (PRIMARY) HYPERTENSION Assessment/Plan 1. Difficulty swallowing, etiology to be determined 2. Hypertensive urgency 3. Atrial fibrillation [id number] score probably 5 and supratherapeutic INR 4. History of CVA with no major residual deficit 5. Hypercholestetrolemia 6. Parkinson's disease 7. Unsteady gait PLAN: 1. Hold Coumadin and let INR drift down. If GI intervention is planned, start Heparin drip when INR falls below 2.0 to bridge. Eventually he would need to continue with anticoagulation in view of above [id number] score stoke risk 2. Continue Labetalol drip and titrate. Eventually switch to PO Labetalol. Add Losartan 100 mg once a day 3. Transthoracic echocardiography to assess LV/RV and valvular function 4. Await GI input 5. Follow fasting lipid panel and add statin therapy Further plans are to follow Henrique Thornton MD
--- NOTE | 2017-12-30 11:46 | CONSULT ---
Admitting History and Physical - Primary Care Physician PCP: Ramses Oshea - Admission History of Present Illness: Per EMR: This is a 77 y/o man with a significant past medical history of Parkinson's disease. Who presents to the emergency department from his GI doctor with weakness and loss of appetite. Per ED record: As per daughter, the patient has not been eating or drinking well for the past week. The patient reports that this is due to increased difficulty swallowing and loss of appetite. Patients daughter states he is gasping when he attempts to swallow, and therefore has difficulty taking his Parkinsons medications. The daughter states the patient has been having difficulty breathing at night for two weeks. The patient states he is tired and has been sleeping a lot, but denies any significant pain. Patient also admits to constipation and mild dysuria. Patient is ambulatory with a cane at baseline. 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) Cardiovascular: Yes: AFIB, HTN, Hyperlipdemia - Past Surgical History Past Surgical History: Yes: Joint Replacement - Smoking History Smoking history: Never smoked Have you smoked in the past 12 months: No - Alcohol/Substance Use Hx Alcohol Use: No History of Substance Use: reports: None - Social History ADL: Family Assistance History of Recent Travel: No History - Admission Reason For Visit: DYSPHAGIA, POORLY CONTROLLED BP, PARKINSONS DISEAS - Diagnostics X-ray: Report Reviewed CT Scan: Report Reviewed - General Mental Status: Alert and Oriented, Awake and Alert, Able to Follow Commands Attention: Intact Ability to Follow Directions: Good Head/Neck Control: WFL - Hearing Hearing: Functional Speech Evaluation - Communication Primary Language: MAURITANIAN Communication: Yes: Language Barrier Oral Expression Ability: Yes: Mild Impairment - Speech Production Able to Make Needs Known: Yes: WNL Intelligibility: Yes: WNL - Speech Characteristics Voice Loudness: Normal Voice Pitch: Yes: Normal Voice Phonatory-based Quality: Yes: Normal Speech Clarity: < 100% Nasal Resonance: Normal Articulation: Yes: Precise Dysfluency: Yes: Clonic - Language/Auditory Comprehension Follows: Yes: 1 Stage Simple Commands - Language/Verbal Expression Able to Respond to Simple Queries: Yes: WNL Able to Communicate Wants and Needs: Yes: WNL Functional Communication Status: Yes: WNL - Swallow Evaluation/Bedside Assessment Current Nutritional Intake: NPO Oral Secretions: Yes: WFL Dentition: Yes: Edentulous Facial Symmetry at Rest: Symmetrical Facial Symmetry on Retraction: Symmetrical Jaw Position: Open at Rest Against Resistance Opening: Normal Against Resistance Closing: Normal Pucker Lips: Normal Smile: Normal Lingual Movement: Normal, Symmetric Lingual Speed of Movement: Normal Lingual Movement Strgth Against Opposition: Normal Lingual Movement Characteristics: Normal Velopharyngeal Movement: Normal Laryngeal Movement: Labored,delay initiation Rate of Intake: WFL Bolus Size: WFL Labial Seal: WFL Chewing: Impaired A-P Transit: Impaired (to and fro of the bolus observed,c/w Parkinson's) Pocketing: None Timing of Swallow: Delayed Coughing/Throat Clear: No Change in Voice: No Recommendations - Speech Evaluation, Impression/Plan Impression: Dysfluent speech, but euphonic and strong.To and fro of the bolus observed,c/w Parkinson's. Risk of aspiration due to suspected oropharyngeal dyscoordination. No overt cough or vocal wetness. Edentulous - Dysphagia Impressions/Plan Dysphagia Impressions: Mild Impairment *Silent aspiration: cannot be R/O at bedside Dysphagia Treatment Plan: Chin Tuck/Down, Safe Rate, 1/2 tsp. at a time, Elevate HOB during feed Recommendations: MBS w Esophagus (if difficulty observed or reported) - Recommendations Diet Consistency: Dysphagia Pureed Medication Administration: Crushed with applesauce Liquids: Thin Liquids Supplement: Magic Cup, Ensure Pudding
[2017-12-30] MEDS ORDERED: LOSARTAN POTASSIUM 25 MG TABLET ONE (12:20)
[2017-12-30] MEDS: LOSARTAN POTASSIUM 50 MG TABLET (FP) PO SCH (12:30)
--- NOTE | 2017-12-30 14:57 | CON.PULM ---
Consult Consult Specialty:: PULM/CCM Referred by:: NORMA Reason for Consultation:: HTN urgency - History of Present Illness Chief Complaint: weakness History of Present Illness: 77 M, history of Parkinson's Disease, atrial fibrillation on Warfarin, history of CVA, hypertension and hypercholesterolemia. Admitted via the ER due to weakness, loss of appetite, and difficulty swallowing. No history of chest pain or shortness of breath. He denies fever or chills. No hemoptysis. No travel history or sick contacts. Noted to have accelerated HTN and was started on a Labetalol drip. He received his Cozaar about 2 hours ago and currently his BP is 140/90. 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) Cardio/Vascular: Yes: AFIB, HTN, Hyperlipdemia - Past Surgical History Past Surgical History: Yes: Joint Replacement - Alcohol/Substance Use Hx Alcohol Use: No History of Substance Use: reports: None - Smoking History Smoking history: Never smoked Have you smoked in the past 12 months: No - Social History ADL: Family Assistance History of Recent Travel: No Home Medications - Allergies Allergies/Adverse Reactions: Allergies Allergy/AdvReac Type Severity Reaction Status Date / Time Penicillins Allergy Verified 12/29/17 13:52 - Home Medications Home Medications: Ambulatory Orders Atorvastatin Ca [Lipitor] 80 mg PO HS 12/29/17 Carbidopa/Levodopa *Cr* 50/200 [Sinemet *Cr* 50/200 -] 1 combo PO BID 12/29/17 Carbidopa/Levodopa 25/100 [Sinemet 25/100 -] 1 each PO TID 12/29/17 Diphenhydramine [Benadryl -] 25 mg PO DAILY 12/29/17 Losartan Potassium 100 mg PO DAILY 12/29/17 Metoprolol Succinate 50 mg PO DAILY 12/29/17 Omeprazole 40 mg PO DAILY 12/29/17 Rasagiline Mesylate 1 mg PO DAILY 12/29/17 Ropinirole HCl 0.5 mg PO DAILY 12/29/17 Ropinirole HCl [Ropinirole ER] 2 mg PO DAILY 12/29/17 Tamsulosin HCl 0.4 mg PO DAILY 12/29/17 Warfarin Sodium [Coumadin] 1 mg PO ASDIR 12/29/17 Warfarin Sodium [Coumadin] 4 mg PO ASDIR 12/29/17 Review of Systems - Review of Systems Constitutional: reports: Loss of Appetite, Malaise, Weakness. denies: Chills, Fever, Night Sweats Eyes: reports: No Symptoms HENT: reports: No Symptoms Neck: reports: No Symptoms Cardiovascular: reports: No Symptoms Respiratory: reports: No Symptoms Gastrointestinal: denies: Melena, Rectal Bleeding, Vomiting Blood Genitourinary: reports: No Symptoms Musculoskeletal: reports: No Symptoms Integumentary: reports: No Symptoms Neurological: reports: Weakness Endocrine: reports: No Symptoms Hematology/Lymphatic: reports: No Symptoms Psychiatric: reports: No Symptoms Physical Exam Vital Sings: Vital Signs Temperature 98.3 F 12/30/17 14:30 Pulse Rate 76 12/30/17 14:30 Respiratory Rate 20 12/30/17 14:30 Blood Pressure 155/90 12/30/17 14:30 O2 Sat by Pulse Oximetry (%) 99 12/30/17 14:30 Constitutional: Yes: No Distress, Calm, Thin Eyes: Yes: Conjunctiva Clear, EOM Intact HENT: Yes: Atraumatic, Normocephalic Neck: Yes: Supple, Trachea Midline Cardiovascular: Yes: Regular Rate and Rhythm Respiratory: Yes: Regular, CTA Bilaterally, On Nasal O2. No: Accessory Muscle Use, Stridor, Tachypnea, Wheezes ...Inspection: Yes: WNL ...Clubbing: No Gastrointestinal: Yes: Normal Bowel Sounds, Soft Musculoskeletal: Yes: WNL Extremities: Yes: WNL Edema: No Peripheral Pulses WNL: Yes Integumentary: Yes: WNL Neurological: Yes: WNL, Alert, Oriented ...Motor Strength: WNL Psychiatric: Yes: WNL, Alert, Oriented Labs: CBC, BMP 12/30/17 08:10 12/30/17 06:30 Imaging - Results Chest X-ray: Report Reviewed, Image Reviewed Problem List - Problems (1) Dysphagia Code(s): R13.10 - DYSPHAGIA, UNSPECIFIED Qualifiers: Dysphagia type: unspecified Qualified Code(s): R13.10 - Dysphagia, unspecified (2) Hypercholesterolemia Code(s): E78.00 - PURE HYPERCHOLESTEROLEMIA, UNSPECIFIED (3) Parkinson disease Code(s): G20 - PARKINSON'S DISEASE (4) Poorly controlled blood pressure Code(s): I99.8 - OTHER DISORDER OF CIRCULATORY SYSTEM Assessment/Plan Taper and D/C IV Labetalol as patient has received his Cozaar and was cleared for PO intake O2 as needed Continue other home meds For now can monitor BP on Cardiac Telemetry unit Please call for any acute change in status Will follow Thank you. Dr Soliman
--- NOTE | 2017-12-30 15:28 | PN ---
Progress Note, Physician Chief Complaint: AWAKE ALERT - Current Medication List Current Medications: Active Medications Atorvastatin Calcium (Lipitor -) 40 mg PO HS [facility] Chlorhexidine Gluconate (Hibiclens For Decolonization -) 1 applic TP HS [facility] Labetalol HCl 1,000 mg/ (Dextrose) 1,000 mls @ 120 mls/hr IV TITR [facility] PRN Reason: 2 MG/MIN Last Titration: 12/30/17 10:45 Dose: 4 mg/min, 240 mls/hr Losartan Potassium (Cozaar -) 100 mg PO DAILY [facility] Last Admin: 12/30/17 12:30 Dose: 100 mg Mupirocin (Bactroban Ointment (For Decolonization) -) 1 applic NS BID [facility] Stop: 01/04/18 09:59 - Objective Vital Signs: Vital Signs Temperature 98.3 F 12/30/17 14:30 Pulse Rate 76 12/30/17 14:30 Respiratory Rate 20 12/30/17 14:30 Blood Pressure 155/90 12/30/17 14:30 O2 Sat by Pulse Oximetry (%) 99 12/30/17 14:30 Constitutional: Yes: Mild Distress Eyes: Yes: WNL HENT: Yes: WNL Neck: Yes: WNL Respiratory: Yes: On Nasal O2, Poor Air Entry, SOB Gastrointestinal: Yes: WNL Genitourinary: Yes: Other Musculoskeletal: Yes: Muscle Weakness Extremities: Yes: Other Edema: No Peripheral Pulses WNL: Yes Integumentary: Yes: WNL Wound/Incision: Yes: Clean/Dry Neurological: Yes: Unsteady Gait ...Motor Strength: WNL Psychiatric: Yes: WNL Labs: CBC, BMP 12/30/17 08:10 12/30/17 06:30 INR, PTT INR 4.12 (0.82-1.09) H* 12/30/17 08:10 Problem List - Problems (1) CVA (cerebral vascular accident) Assessment/Plan: OLD CVA Code(s): I63.9 - CEREBRAL INFARCTION, UNSPECIFIED Qualifiers: Laterality of affected vessel: unspecified (2) DVT prophylaxis Code(s): [id number] - (3) Dysphagia Code(s): R13.10 - DYSPHAGIA, UNSPECIFIED Qualifiers: Dysphagia type: unspecified Qualified Code(s): R13.10 - Dysphagia, unspecified (4) Hypercholesterolemia Code(s): E78.00 - PURE HYPERCHOLESTEROLEMIA, UNSPECIFIED (5) Parkinson disease Code(s): G20 - PARKINSON'S DISEASE (6) Poorly controlled blood pressure Code(s): I99.8 - OTHER DISORDER OF CIRCULATORY SYSTEM (7) Uncontrolled hypertension Code(s): I10 - ESSENTIAL (PRIMARY) HYPERTENSION (8) Unsteady gait Code(s): R26.81 - UNSTEADINESS ON FEET Assessment/Plan PULM AND CARDIO CONSULT NEBS BP CONTROL DVT PROPHYLAXIS TELEMETRY ADMISSION
[2017-12-30] MEDS ORDERED: POTASSIUM CHLORIDE TABS 20 MEQ TABLET.ER (FP) PO ONE ×2 (15:29→20:21)
--- NOTE | 2017-12-30 19:15 | PN ---
GI Progress Note Subjective: tolerating clear liquids, still highly concentrated urine, reviewed previous notes - Objective Vital Signs: Vital Signs Temperature 98.3 F 12/30/17 14:30 Pulse Rate 78 12/30/17 18:44 Respiratory Rate 20 12/30/17 18:44 Blood Pressure 166/119 12/30/17 18:44 O2 Sat by Pulse Oximetry (%) 99 12/30/17 18:44 Constitutional: Well Nourished Eyes: Yes: Conjunctiva Clear HENT: Yes: Atraumatic Neck: Yes: Supple Cardiovascular: Yes: Regular Rate and Rhythm Respiratory: Yes: CTA Bilaterally ...Palpate: Yes: Soft. No: Firm/Rigid, Guarding, Hepatomegaly, Mass, Pulsatile Mass, Splenomegaly, Tenderness Labs: CBC, BMP 12/30/17 08:10 12/30/17 06:30 INR, PTT INR 4.12 (0.82-1.09) H* 12/30/17 08:10 Problem List - Problems (1) Dysphagia Assessment/Plan: possibly oropharyngeal dysphagia secondary to Parkinsons R>neurology consult to maximize Parkinson meds if possible await MBS and esophagram Code(s): R13.10 - DYSPHAGIA, UNSPECIFIED Qualifiers: Dysphagia type: unspecified Qualified Code(s): R13.10 - Dysphagia, unspecified
[2017-12-30] MEDS ORDERED: LABETALOL HCL 100 MG TABLET (FP) PO ONE (20:05)
[2017-12-30] MEDS ORDERED: CHLORHEXIDINE GLUCONATE 4% CLEANSER FOR DECOLONIZATION TP SCH (22:00)
[2017-12-30] MEDS: ATORVASTATIN CA 40 MG TABLET (FP) PO SCH (23:32)
--- NOTE | 2017-12-31 05:49 | HOSP ---
Subjective - Review of Symptoms Events since last encounter: Hospitalist Encounter Notified by primary RN, that the patient was received to the floor with hematuria in the drainage bag. A 77 y/o man with PMHx of Parkinson's Disease, Afib (Coumadin). Admitted for Hypertensive Urgency, Dysphagia, Supratherapeutic INR. P Appreciate Nephrology Consult RN to inform PCP of overnight events Will continue to monitor Physical Examination Vital Signs: Vital Signs Temperature 97.5 F L 12/30/17 23:00 Pulse Rate 88 12/30/17 23:00 Respiratory Rate 22 12/30/17 23:00 Blood Pressure 154/90 12/30/17 23:00 O2 Sat by Pulse Oximetry (%) 96 12/30/17 23:00 Labs: CBC, BMP 12/30/17 08:10 12/30/17 06:30
[2017-12-31 07:15] LABS: HEMATOCRIT 44.9 % (35.4-49); HEMOGLOBIN 15.2 GM/dL (11.7-16.9); MCH 30.2 pg (25.7-33.7); MCHC 33.9 g/dl (32.0-35.9); MEAN PLT VOLUME 8.3 fl (7.5-11.1); PLATELET COUNT 220 K/MM3 (134-434); RBC 5.04 M/mm3 (4.00-5.60); RDW 13.9 % (11.9-15.9); WHITE BLOOD COUNT 10.8 K/mm3 (4.0-10.0)
[2017-12-31 07:36] LABS: PROTHROMBIN TIME (PATIENT) 49.8 SEC (9.98-11.88)
[2017-12-31 07:54] LABS: CHLORIDE 98 mmol/L (98-107); POTASSIUM 3.9 mmol/L (3.5-5.1); SODIUM 134 mmol/L (136-145)
[2017-12-31 08:06] LABS: INR 4.41 (0.82-1.09)
--- NOTE | 2017-12-31 08:09 | PN ---
Progress Note, Physician - Current Medication List Current Medications: Active Medications Atorvastatin Calcium (Lipitor -) 40 mg PO HS [facility] Last Admin: 12/30/17 23:32 Dose: 40 mg Chlorhexidine Gluconate (Hibiclens For Decolonization -) 1 applic TP HS [facility] Labetalol HCl (Normodyne -) 100 mg PO BID [facility] Losartan Potassium (Cozaar -) 100 mg PO DAILY [facility] Last Admin: 12/30/17 12:30 Dose: 100 mg Mupirocin (Bactroban Ointment (For Decolonization) -) 1 applic NS BID [facility] Stop: 01/04/18 09:59 - Objective Vital Signs: Vital Signs Temperature 98.5 F 12/31/17 06:00 Pulse Rate 92 H 12/31/17 06:00 Respiratory Rate 22 12/31/17 06:00 Blood Pressure 160/88 12/31/17 06:00 O2 Sat by Pulse Oximetry (%) 96 12/30/17 23:00 Cardiovascular: Yes: Pulse Irregular, S1, S2 Respiratory: Yes: Regular, CTA Bilaterally Gastrointestinal: Yes: Normal Bowel Sounds, Soft Labs: INR, PTT INR 4.41 (0.82-1.09) H* 12/31/17 06:11 Problem List - Problems (1) Hematuria Assessment/Plan: ua and uc iv abx urology consult Code(s): R31.9 - HEMATURIA, UNSPECIFIED (2) Pneumonia Assessment/Plan: iv abx follow up with pulm Code(s): J18.9 - PNEUMONIA, UNSPECIFIED ORGANISM (3) Dysphagia Assessment/Plan: esophogram gi on board Code(s): R13.10 - DYSPHAGIA, UNSPECIFIED Qualifiers: Dysphagia type: unspecified Qualified Code(s): R13.10 - Dysphagia, unspecified (4) Parkinson disease Assessment/Plan: resume meds and observe pt Code(s): G20 - PARKINSON'S DISEASE (5) Uncontrolled hypertension Assessment/Plan: observe on current meds Code(s): I10 - ESSENTIAL (PRIMARY) HYPERTENSION
[2017-12-31 08:10] LABS: ANION GAP 8 (8-16); BLOOD UREA NITROGEN 30 mg/dL (7-18); CALCIUM 8.7 mg/dL (8.5-10.1); CHOLESTEROL 209 mg/dL (50-200); CO2 28 mmol/L (21-32); CREATININE 1.1 mg/dL (0.7-1.3); GLUCOSE,RANDOM 105 mg/dL (74-106); HDL CHOLESTEROL 46 mg/dL (40-60); LDL CHOLESTEROL (ONLY SJRH) 144 mg/dL (5-100); MAGNESIUM 1.9 mg/dL (1.8-2.4); PHOSPHOROUS 3.9 mg/dL (2.5-4.9); TRIGLYCERIDES 117 mg/dL (35-160)
[2017-12-31] MEDS: LOSARTAN POTASSIUM 50 MG TABLET (FP) PO SCH (09:46)
[2017-12-31] MEDS ORDERED: RASAGILINE MESYLATE 1 MG PO SCH (10:00)
[2017-12-31] MEDS ORDERED: LABETALOL HCL 100 MG TABLET (FP) PO SCH (10:00)
[2017-12-31] MEDS ORDERED: ROPINIROLE HCL 2 MG PO SCH (10:00)
[2017-12-31] MEDS ORDERED: TAMSULOSIN HCL 0.4 MG CAP.ER.24H (FP) PO SCH (10:00)
[2017-12-31] MEDS ORDERED: PATIENT'S OWN MEDICATION (NON-FORMULARY) (Omeprazole [Omeprazole] 40 MG) PO SCH (10:00)
[2017-12-31 10:47] LABS: PH,URINE 6.5 (5.0-8.0); URINE APPEARANCE CLEAR; URINE BILIRUBIN 1+ (NEGATIVE); URINE BLOOD 3+ (NEGATIVE); URINE COLOR DK. RED; URINE GLUCOSE (UA) TRACE (NEGATIVE); URINE KETONE 1+ (NEGATIVE); URINE UROBILINOGEN 4.0 E.U/dl mg/dL (0.2-1.0)
[2017-12-31 11:03] LABS: URINE LEUK ESTERASE 2+ (NEGATIVE); URINE NITRITE POSITIVE (NEGATIVE); URINE PROTEIN 3+ (NEGATIVE)
--- NOTE | 2017-12-31 11:05 | PN ---
Progress Note, [employer]PL[employer] - Note Progress Note: Selected Entries 12/31/17 06:00 Temperature 98.5 F Laboratory Tests 12/29/17 12/30/17 12/31/17 14:44 06:30 06:11 WBC 10.3 H 10.8 H 10.8 H NPO. For esophagram with gastrographin, per GI orders. To follow for dietary recommendations. May benefit from MBS.
[2017-12-31 11:11] LABS: URINE BACTERIA FEW /hpf (NONE SEEN)
--- NOTE | 2017-12-31 11:28 | EKG ---
Test Reason : Blood Pressure : / mmHG Vent. Rate : 098 BPM Atrial Rate : 115 BPM P-R Int : 000 ms QRS Dur : 082 ms QT Int : 352 ms P-R-T Axes : 000 055 042 degrees QTc Int : 449 ms ATRIAL FIBRILLATION MINIMAL VOLTAGE CRITERIA FOR LVH, MAY BE NORMAL VARIANT ABNORMAL ECG NO PREVIOUS ECGS AVAILABLE Confirmed by QUINCY RIVAS, SERA ([id number]) on 12/31/2017 11:28:41 AM Referred By: Confirmed By:SERA MATHEW MD
--- NOTE | 2017-12-31 11:28 | EKG ---
Test Reason : Blood Pressure : / mmHG Vent. Rate : 096 BPM Atrial Rate : 441 BPM P-R Int : 000 ms QRS Dur : 084 ms QT Int : 360 ms P-R-T Axes : 000 062 046 degrees QTc Int : 454 ms ATRIAL FIBRILLATION VOLTAGE CRITERIA FOR LEFT VENTRICULAR HYPERTROPHY ABNORMAL ECG WHEN COMPARED WITH ECG OF 29-DEC-2017 14:14, NO SIGNIFICANT CHANGE WAS FOUND Confirmed by QUINCY RIVAS, SERA ([id number]) on 12/31/2017 11:28:49 AM Referred By: Celina ONEIL Confirmed By:SERA MATHEW MD
--- NOTE | 2017-12-31 11:53 | PN ---
Progress Note, Physician History of Present Illness: PULMONARY ALERT,NAD,BP BETTER CONTROLLED. - Current Medication List Current Medications: Active Medications Atorvastatin Calcium (Lipitor -) 40 mg PO HS [facility] Last Admin: 12/30/17 23:32 Dose: 40 mg Carbidopa/Levodopa (Sinemet *Cr* 50/200 -) 1 combo PO BID [facility] Carbidopa/Levodopa (Sinemet 25/100 -) 1 each PO TID [facility] Levofloxacin (Levaquin 500 Mg Premixed Ivpb -) 500 mg in 100 mls @ 100 mls/hr IVPB DAILY [facility] Labetalol HCl (Normodyne -) 100 mg PO BID [facility] Last Admin: 12/31/17 09:46 Dose: 100 mg Losartan Potassium (Cozaar -) 100 mg PO DAILY [facility] Last Admin: 12/31/17 09:46 Dose: 100 mg Non-Formulary Medication (Rasagiline Mesylate [Rasagiline Mesylate]) 1 mg PO DAILY [facility] Non-Formulary Medication (Ropinirole Hcl [Ropinirole Er]) 2 mg PO DAILY [facility] Pantoprazole Sodium (Protonix -) 40 mg PO DAILY [facility] Tamsulosin HCl (Flomax -) 0.4 mg PO DAILY@0830 [facility] - Objective Vital Signs: Vital Signs Temperature 98.5 F 12/31/17 06:00 Pulse Rate 92 H 12/31/17 06:00 Respiratory Rate 22 12/31/17 06:00 Blood Pressure 160/88 12/31/17 06:00 O2 Sat by Pulse Oximetry (%) 96 12/30/17 23:00 Constitutional: Yes: Well Nourished, Calm Eyes: Yes: WNL HENT: Yes: WNL Neck: Yes: WNL Cardiovascular: Yes: Pulse Irregular, S1, S2 Respiratory: Yes: Diminished Gastrointestinal: Yes: Normal Bowel Sounds, Soft Extremities: Yes: WNL Edema: No Labs: CBC, BMP 12/31/17 06:11 12/31/17 06:11 INR, PTT INR 4.41 (0.82-1.09) H* 12/31/17 06:11 Problem List - Problems (1) Lung nodule < 6cm on CT Code(s): R91.1 - SOLITARY PULMONARY NODULE Assessment/Plan Problem List - Problems (1) Dysphagia Code(s): R13.10 - DYSPHAGIA, UNSPECIFIED Qualifiers: Dysphagia type: unspecified Qualified Code(s): R13.10 - Dysphagia, unspecified (2) Hypercholesterolemia Code(s): E78.00 - PURE HYPERCHOLESTEROLEMIA, UNSPECIFIED (3) Parkinson disease Code(s): G20 - PARKINSON'S DISEASE (4) Poorly controlled blood pressure Code(s): I99.8 - OTHER DISORDER OF CIRCULATORY SYSTEM LLL NODULE Assessment/Plan Titrate bp meds O2 as needed F/U chest ct 3-[address] REAL
--- NOTE | 2017-12-31 12:48 | PN ---
Progress Note, Physician History of Present Illness: BP control improved. - Current Medication List Current Medications: Active Medications Atorvastatin Calcium (Lipitor -) 40 mg PO HS [facility] Last Admin: 12/30/17 23:32 Dose: 40 mg Carbidopa/Levodopa (Sinemet *Cr* 50/200 -) 1 combo PO BID [facility] Last Admin: 12/31/17 12:09 Dose: 1 combo Carbidopa/Levodopa (Sinemet 25/100 -) 1 each PO TID [facility] Levofloxacin (Levaquin 500 Mg Premixed Ivpb -) 500 mg in 100 mls @ 100 mls/hr IVPB DAILY [facility] Last Admin: 12/31/17 12:09 Dose: 100 mls/hr Labetalol HCl (Normodyne -) 100 mg PO BID [facility] Last Admin: 12/31/17 09:46 Dose: 100 mg Losartan Potassium (Cozaar -) 100 mg PO DAILY [facility] Last Admin: 12/31/17 09:46 Dose: 100 mg Non-Formulary Medication (Rasagiline Mesylate [Rasagiline Mesylate]) 1 mg PO DAILY [facility] Non-Formulary Medication (Ropinirole Hcl [Ropinirole Er]) 2 mg PO DAILY [facility] Pantoprazole Sodium (Protonix -) 40 mg PO DAILY [facility] Tamsulosin HCl (Flomax -) 0.4 mg PO DAILY@0830 [facility] - Objective Vital Signs: Vital Signs Temperature 98.5 F 12/31/17 06:00 Pulse Rate 92 H 12/31/17 06:00 Respiratory Rate 22 12/31/17 06:00 Blood Pressure 160/88 12/31/17 06:00 O2 Sat by Pulse Oximetry (%) 96 12/30/17 23:00 Constitutional: Yes: No Distress, Calm, Thin Cardiovascular: Yes: Pulse Irregular Respiratory: Yes: Regular, Diminished Gastrointestinal: Yes: Normal Bowel Sounds, Soft Edema: No Labs: CBC, BMP 12/31/17 06:11 12/31/17 06:11 INR, PTT INR 4.41 (0.82-1.09) H* 12/31/17 06:11 - ....Imaging EKG: Report Reviewed (Coarse afib @ 96 [facility] Tele: Afib 100s) Problem List - Problems (1) Atrial fibrillation with rapid ventricular response Code(s): I48.91 - UNSPECIFIED ATRIAL FIBRILLATION (2) CVA (cerebral vascular accident) Code(s): I63.9 - CEREBRAL INFARCTION, UNSPECIFIED Qualifiers: Laterality of affected vessel: unspecified (3) Dysphagia Code(s): R13.10 - DYSPHAGIA, UNSPECIFIED Qualifiers: Dysphagia type: unspecified Qualified Code(s): R13.10 - Dysphagia, unspecified (4) Hypercholesterolemia Code(s): E78.00 - PURE HYPERCHOLESTEROLEMIA, UNSPECIFIED (5) Parkinson disease Code(s): G20 - PARKINSON'S DISEASE (6) Uncontrolled hypertension Code(s): I10 - ESSENTIAL (PRIMARY) HYPERTENSION Assessment/Plan 12/30/2017 Echo: Normal biventricular size and fxn, mild KEO, mild-mod AR 1. Possible oropharyngeal dysphagia secondary to Parkinsons Disease 2. Hypertensive urgency improving 3. Atrial fibrillation [id number] score 5 and supratherapeutic INR 4. History of CVA with no major residual deficit 5. Hypercholestetrolemia 6. Parkinson's disease 7. Unsteady gait PLAN: 1. Hold Coumadin and let INR drift down. If GI intervention is planned, start Heparin drip when INR falls below 2.0 to bridge. Eventually he would need to continue with anticoagulation in view of above [id number] score stoke risk 2. Change Labetalol to carvedilol 6.25 bid with uptitration as tolerated, continue Losartan 100 mg once a day and Lipitor 40 qhs 3. F/u MBS and esophagram
--- NOTE | 2017-12-31 12:53 | CONSULT ---
Consult Consult Specialty:: Nephrology Reason for Consultation:: hematuria and azotemia - History of Present Illness Chief Complaint: weakness and loss of appetite History of Present Illness: Pt is a 77 year old male with pmhx of Parkinsons, HTN and HLD who was sent in initially for weakness and decreased PO intake. Pt had been having increased difficultly swallowing. He was found to have elevated blood pressure. Pt was not taking his meds as he was having difficulty swallowing. He had a hernandez placed and was found to have gross hematuria. He is awake and appears comfortable. 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) Cardio/Vascular: Yes: AFIB, HTN, Hyperlipdemia - Past Surgical History Past Surgical History: Yes: Joint Replacement - Alcohol/Substance Use Hx Alcohol Use: No History of Substance Use: reports: None - Smoking History Smoking history: Never smoked Have you smoked in the past 12 months: No - Social History ADL: Family Assistance History of Recent Travel: No Home Medications - Allergies Allergies/Adverse Reactions: Allergies Allergy/AdvReac Type Severity Reaction Status Date / Time Penicillins Allergy Verified 12/29/17 13:52 - Home Medications Home Medications: Ambulatory Orders Atorvastatin Ca [Lipitor] 80 mg PO HS 12/29/17 Carbidopa/Levodopa *Cr* 50/200 [Sinemet *Cr* 50/200 -] 1 combo PO BID 12/29/17 Carbidopa/Levodopa 25/100 [Sinemet 25/100 -] 1 each PO TID 12/29/17 Diphenhydramine [Benadryl -] 25 mg PO DAILY 12/29/17 Losartan Potassium 100 mg PO DAILY 12/29/17 Metoprolol Succinate 50 mg PO DAILY 12/29/17 Omeprazole 40 mg PO DAILY 12/29/17 Rasagiline Mesylate 1 mg PO DAILY 12/29/17 Ropinirole HCl 0.5 mg PO DAILY 12/29/17 Ropinirole HCl [Ropinirole ER] 2 mg PO DAILY 12/29/17 Tamsulosin HCl 0.4 mg PO DAILY 12/29/17 Warfarin Sodium [Coumadin] 1 mg PO ASDIR 12/29/17 Warfarin Sodium [Coumadin] 4 mg PO ASDIR 12/29/17 Family Disease History - Family Disease History Family History: Unable to Obtain Review of Systems - Review of Systems Constitutional: reports: Weakness Eyes: reports: No Symptoms HENT: reports: No Symptoms Neck: reports: No Symptoms Cardiovascular: reports: No Symptoms Musculoskeletal: reports: Muscle Weakness Neurological: reports: Pre-Existing Deficit Physical Exam Vital Signs: Vital Signs Temperature 98.5 F 12/31/17 06:00 Pulse Rate 92 H 12/31/17 06:00 Respiratory Rate 22 12/31/17 06:00 Blood Pressure 160/88 12/31/17 06:00 O2 Sat by Pulse Oximetry (%) 96 12/30/17 23:00 Constitutional: Yes: Calm Eyes: Yes: Conjunctiva Clear HENT: Yes: Atraumatic Cardiovascular: Yes: S1, S2 Respiratory: Yes: CTA Bilaterally Gastrointestinal: Yes: Soft Renal/: Yes: Hernandez Present, Hematuria Musculoskeletal: Yes: Muscle Weakness Edema: No Neurological: Yes: Pre-Existing Deficit Labs: CBC, BMP 12/31/17 06:11 12/31/17 06:11 Laboratory Tests 12/29/17 12/29/17 12/30/17 14:44 14:44 06:30 WBC Hgb Sodium 137 Potassium 3.4 L BUN 18 Creatinine 0.9 B-Natriuretic Peptide 1838.72 H Urine Protein 1+ H Urine Blood Negative Urine RBC (Auto) 12/30/17 12/31/17 12/31/17 08:10 06:11 06:11 WBC 10.7 H 10.8 H Hgb 15.6 15.2 Sodium 134 L Potassium 3.9 BUN 30 H D Creatinine 1.1 D B-Natriuretic Peptide Urine Protein Urine Blood Urine RBC (Auto) 12/31/17 10:00 WBC Hgb Sodium Potassium BUN Creatinine B-Natriuretic Peptide Urine Protein 3+ H D Urine Blood 3+ H Urine RBC (Auto) To many to enumerate Imaging - Results Chest X-ray: Report Reviewed Problem List - Problems (1) Atrial fibrillation with rapid ventricular response Code(s): I48.91 - UNSPECIFIED ATRIAL FIBRILLATION (2) Dysphagia Code(s): R13.10 - DYSPHAGIA, UNSPECIFIED Qualifiers: Dysphagia type: unspecified Qualified Code(s): R13.10 - Dysphagia, unspecified (3) Hematuria Code(s): R31.9 - HEMATURIA, UNSPECIFIED (4) Poorly controlled blood pressure Code(s): I99.8 - OTHER DISORDER OF CIRCULATORY SYSTEM Assessment/Plan Current Medications Generic Name Dose Route Start Last Admin Trade Name Rosemary PRN Reason Stop Dose Admin Atorvastatin Calcium 40 mg 12/30/17 22:00 12/30/17 23:32 Lipitor - PO 40 mg HS [facility] Administration Carbidopa/Levodopa 1 combo 12/31/17 10:00 12/31/17 12:09 Sinemet *Cr* 50/200 - PO 1 combo BID [facility] Administration Carbidopa/Levodopa 1 each 12/31/17 14:00 Sinemet 25/100 - PO TID [facility] Carvedilol 6.25 mg 12/31/17 13:15 Coreg - PO BID [facility] Levofloxacin 500 mg in 100 mls @ 100 mls/hr 12/31/17 10:00 12/31/17 12:09 Levaquin 500 Mg Premixed Ivpb - IVPB 100 mls/hr DAILY [facility] Administration Losartan Potassium 100 mg 12/30/17 11:45 12/31/17 09:46 Cozaar - PO 100 mg DAILY [facility] Administration Non-Formulary Medication 1 mg 12/31/17 10:00 Rasagiline Mesylate [Rasagiline Mesylate] PO DAILY [facility] Non-Formulary Medication 2 mg 12/31/17 10:00 Ropinirole Hcl [Ropinirole Er] PO DAILY [facility] Pantoprazole Sodium 40 mg 12/31/17 10:03 Protonix - PO DAILY [facility] Tamsulosin HCl 0.4 mg 12/31/17 10:06 Flomax - PO DAILY@0830 [facility] Impression 1. hematuria 2. htn 3. parkinsons 4. dysphagia 5. a-fib 6. cva Plan - bp is improving - coreg added, monitor bp, spoke to nurse - urology eval for hematuria - perhaps bp was elevated as he was not taking his meds secondary to dysphagia - will follow Dr Bermudez
[2017-12-31] MEDS ORDERED: CARBIDOPA/LEVODOPA 25/100 TABLET (FP) PO SCH (14:00)
[2017-12-31] MEDS: CARVEDILOL 6.25 MG TABLET (FP) PO SCH ×2 (14:33→22:38)
--- NOTE | 2017-12-31 17:44 | PN ---
GI Progress Note Subjective: barium esophagram cancelled as patient can ot swallow,for MBS - Objective Vital Signs: Vital Signs Temperature 97.5 F L 12/31/17 14:00 Pulse Rate 99 H 12/31/17 14:00 Respiratory Rate 22 12/31/17 06:00 Blood Pressure 142/92 12/31/17 14:00 O2 Sat by Pulse Oximetry (%) 96 12/30/17 23:00 Constitutional: Well Nourished Eyes: Yes: Conjunctiva Clear HENT: Yes: Atraumatic Neck: Yes: Supple Cardiovascular: Yes: Regular Rate and Rhythm Respiratory: Yes: CTA Bilaterally ...Palpate: Yes: Soft. No: Firm/Rigid, Guarding, Hepatomegaly, Mass, Pulsatile Mass Labs: CBC, BMP 12/31/17 06:11 12/31/17 06:11 INR, PTT INR 4.41 (0.82-1.09) H* 12/31/17 06:11 Problem List - Problems (1) Dysphagia Assessment/Plan: R> for MBS if negatve for EGD once medically cleared Code(s): R13.10 - DYSPHAGIA, UNSPECIFIED Qualifiers: Dysphagia type: unspecified Qualified Code(s): R13.10 - Dysphagia, unspecified
--- NOTE | 2017-12-31 18:07 | CON.GU ---
Consult Consult Specialty:: urology Referred by:: Jessica Reason for Consultation:: hematuria - History of Present Illness Chief Complaint: hematuria History of Present Illness: Patient is a 77 year old male with history of afib and parkinson's who was noted to have significant hematuria with question of gross hematuria while with elevated INR. The patient has a history of bph and is on flomax. The patient at home is noted to have significant uregency and frequency with voiding of small amounts and nocturia x4. The patient denies dysuria, fever, chills or renal colic. 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) Cardio/Vascular: Yes: AFIB, HTN, Hyperlipdemia - Past Surgical History Past Surgical History: Yes: Joint Replacement - Alcohol/Substance Use Hx Alcohol Use: No History of Substance Use: reports: None - Smoking History Smoking history: Never smoked Have you smoked in the past 12 months: No - Social History ADL: Family Assistance History of Recent Travel: No Home Medications - Allergies Allergies/Adverse Reactions: Allergies Allergy/AdvReac Type Severity Reaction Status Date / Time Penicillins Allergy Verified 12/29/17 13:52 - Home Medications Home Medications: Ambulatory Orders Atorvastatin Ca [Lipitor] 80 mg PO HS 12/29/17 Carbidopa/Levodopa *Cr* 50/200 [Sinemet *Cr* 50/200 -] 1 combo PO BID 12/29/17 Carbidopa/Levodopa 25/100 [Sinemet 25/100 -] 1 each PO TID 12/29/17 Diphenhydramine [Benadryl -] 25 mg PO DAILY 12/29/17 Losartan Potassium 100 mg PO DAILY 12/29/17 Metoprolol Succinate 50 mg PO DAILY 12/29/17 Omeprazole 40 mg PO DAILY 12/29/17 Rasagiline Mesylate 1 mg PO DAILY 12/29/17 Ropinirole HCl 0.5 mg PO DAILY 12/29/17 Ropinirole HCl [Ropinirole ER] 2 mg PO DAILY 12/29/17 Tamsulosin HCl 0.4 mg PO DAILY 12/29/17 Warfarin Sodium [Coumadin] 1 mg PO ASDIR 12/29/17 Warfarin Sodium [Coumadin] 4 mg PO ASDIR 02/05/18 Physical Exam- Vital Signs: Vital Signs Temperature 97.5 F L 12/31/17 14:00 Pulse Rate 99 H 12/31/17 14:00 Respiratory Rate 22 12/31/17 06:00 Blood Pressure 142/92 12/31/17 14:00 O2 Sat by Pulse Oximetry (%) 96 12/30/17 23:00 Constitutional: Yes: Anxious, Ashen Eyes: Yes: WNL, Conjunctiva Clear, EOM Intact HENT: Yes: WNL, Atraumatic, Nasal Congestion Neck: Yes: Trachea Midline Respiratory: Yes: WNL, Regular Gastrointestinal: Yes: Normal Bowel Sounds, Soft Renal/: Yes: WNL Kidneys: Yes: WNL Pelvis: Yes: WNL Testicles: Yes: WNL Scrotum: Yes: WNL Penis: Yes: WNL Prostate Exam: Yes: Asymmetrical, Swollen Labs: CBC, BMP 12/31/17 06:11 12/31/17 06:11 Assessment/Plan impression uti hematuria bph supratherapeutic INR plan continue levaquin and follow urine culture continue flomax Discussed with daughter and will schedule cystoscopy as an outpatient
--- NOTE | 2017-12-31 18:49 | CONSULT ---
Consult - text type - Consultation Consultation Note: NEUROLOGY CONSULTATION is greatly appreciated: This 77 yo RH palestinian speaking many with h/o HTN, Chol, ASHD, AFib is maintained on coumadin losartan, metoprolol, atorvastatin, tamsulosin and benadryl. He carries a diagnosis of Parkinson's disease x 15 years on various forms of L- Dopa (total 700 mg/day), Rasagiline patch (1 mg), various forms of Ropinirole ( total 2.5 mg/day). Now admitted with difficulty swallowing and dehydration. Monterroso placed in ER. Now with hematuria. LUIS ALFREDO: Thin oropharynx dry. Monterroso in situ (urine clearing, cloudy). NEURO: Awake alert, MS probably normal Severe festinating speech Rigid tone. No tremor. Prominant cogweeling. Reduced Louisa. Normal UE reflexes. Reduced KJ's. Absent AJ's. Decreased vibration in feet Stands with assistance. Spontaneous retropulsion. IMP: Moderately advanced Parkinson's Disease with dysphagia. PLAN: D/C entire current regimen for PD. D/C Benadryl Give Sinemet 25/250 QID @ 6, 10, 2, and 6 Give Ropinirole .5 mg PO QID @ 6, 10, 2, and 6 Feed patient, seated upright and observed at peak of Sinemet action at 8 AM, 12 noon and 5 pm Neuro f/u as out patient. Thank you very much, Valentino Blake MD
--- NOTE | 2017-12-31 19:59 | CONS ---
DATE OF CONSULTATION: 12/31/2017 HISTORY OF PRESENT ILLNESS: The patient is a 77-year-old man with a past medical history of Parkinson disease who was admitted with difficulty swallowing and weakness. The patient is undergoing workup, which included a barium swallow x- ray technically inadequate to exclude the patient's inability to swallow. The patient also had blood work on admission with slight evaluation of WBCs 10.3, hemoglobin 14.6, and platelet count in the 220s. Repeat was stable on today's blood work with WBCs 10.8, hemoglobin 15.2, and platelet count 220. The patient's chemistry also is stable. He had a supratherapeutic INR of 5.09 and remains elevated at 4.41. He did have a low potassium level on December 30, but this normalized at 3.9. Currently , the patient feels he is able to swallow, but he has been evaluated. He also has been referred to therapy but was unable to undergo any physical therapy. He did have a CT of the chest, which showed left atrial dilatation with extension and indentation of the esophagus as well as a 4-cm aortic abdominal aneurysm. Speech Therapy recommended modified barium swallow and 1/2 teaspoons at a time. Again, the patient did not get any physical therapy but usually ambulates with rolling walker. PAST MEDICAL HISTORY: Parkinson disease, hypertension, atrial fibrillation. SOCIAL HISTORY: The patient lives in an elevator-accessible apartment and ambulated with walker. REVIEW OF SYSTEMS: No lightheadedness, dizziness. No headache. No blurry vision or double vision. No nausea or vomiting, The patient denies any difficulty swallowing and shows that he can swallow certain things, but his speech is garbled and difficult to understand even in Armenian. denies difficulty chewing. No chest pain, shortness of breath. No abdomen pain, constipation, difficulty urinating, or weakness of the lower extremities with numbness from the abdomen distally. Some weight loss No fever, chills, or recent illness. PHYSICAL EXAMINATION: General: Patient is a thin man seen lying in bed. He is calm and in no acute distress. HEENT: Normocephalic and atraumatic. Extraocular muscles appear intact. Neck: Supple. Extremities: No isolated calf tenderness or pitting edema. Skin: Without any rash or breakdown. Neuromuscular: He is awake, alert, cooperative. Cranial nerves 2-12 grossly intact. Fair to good motor power in the upper extremities but with tremor. Ulnar innervated muscle weakness in the right upper extremity but normal sensation. Symmetric reflexes. No gross arthritic change. Some bilateral weakness in lower extremities. He has antigravity hip girdle strength. Distal DF/PF at least 4/5 with 3+/5 knee extensor strength. Kierra sensation throughout the lower extremities with knee jerk reflex at 1-2+. Ankle jerks are 1+. Toes: Difficult to assess as he withdraws to Babinski. He has increased tone in the upper and lower extremities. Unable to stand or ambulate the patient at this time. OVERALL IMPRESSION: 1. Deficits in mobility and activities of daily living. 2. Parkinson disease. 3. Difficulty swallowing, rule out dysphagia. 4. Supratherapeutic international normalized ratio. 5. Atrial fibrillation on anticoagulation. 6. Hypertension. 7. Status post hypokalemia. 8. Mild leukocytosis. 9. Elevated BUN to creatinine ratio. PLAN/SUGGESTION: 1. Physical therapy when able to include bed mobility, transfers, gait training , strengthening, reconditioning. 2. Out of bed to chair. 3. Speech therapy follow up. 4. Follow INR closely. 5. Consider IV fluid hydration. 6. Medical follow up. 7. May require short-term rehabilitation in a group home facility. Thank you for this referral. YOSI CEJA M.D. [id number] MTDD
[2017-12-31] MEDS ORDERED: PT OWN MED DRAWER 7, Y5N ONE (21:25)
[2017-12-31] MEDS ORDERED: rOPINIRole HCL 1 MG TABLET (FP) PO SCH (22:00)
[2017-12-31] MEDS ORDERED: CARBIDOPA/LEVODOPA 25/250 TABLET (FP) PO SCH (22:00)
[2017-12-31] MEDS ORDERED: rOPINIRole HCL 0.5 MG TABLET PO SCH (22:00)
[2017-12-31] MEDS: ATORVASTATIN CA 40 MG TABLET (FP) PO SCH (22:38)
[2018-01-01] MEDS: CARVEDILOL 6.25 MG TABLET (FP) PO SCH ×3 (06:34→22:42)
[2018-01-01] MEDS: LOSARTAN POTASSIUM 50 MG TABLET (FP) PO SCH ×2 (06:34→09:57)
[2018-01-01 07:26] LABS: BASO % 0.3 % (0-2.0); EOS % 5.4 % (0-4.5); HEMATOCRIT 44.2 % (35.4-49); LYMPH % 11.2 % (8-40); MCH 30.4 pg (25.7-33.7); MCHC 33.9 g/dl (32.0-35.9); MEAN CELL VOLUME 89.6 fl (80-96); MEAN PLT VOLUME 8.6 fl (7.5-11.1); MONO % 10.7 % (3.8-10.2); NEUT % 72.4 % (42.8-82.8); PLATELET COUNT 217 K/MM3 (134-434); RBC 4.94 M/mm3 (4.00-5.60); RDW 13.7 % (11.9-15.9)
[2018-01-01 07:46] LABS: INR 3.52 (0.82-1.09); PROTHROMBIN TIME (PATIENT) 39.8 SEC (9.98-11.88)
--- NOTE | 2018-01-01 08:07 | PN ---
Progress Note, Physician - Current Medication List Current Medications: Active Medications Atorvastatin Calcium (Lipitor -) 40 mg PO HS [facility] Last Admin: 12/31/17 22:38 Dose: 40 mg Carbidopa/Levodopa (Sinemet 25/250 -) 1 each PO 0600,1000,1400,1800 [facility] Carvedilol (Coreg -) 6.25 mg PO BID [facility] Last Admin: 01/01/18 06:34 Dose: 6.25 mg Levofloxacin (Levaquin 500 Mg Premixed Ivpb -) 500 mg in 100 mls @ 100 mls/hr IVPB DAILY [facility] Last Admin: 12/31/17 12:09 Dose: 100 mls/hr Losartan Potassium (Cozaar -) 100 mg PO DAILY [facility] Last Admin: 01/01/18 06:34 Dose: 100 mg Pantoprazole Sodium (Protonix -) 40 mg PO DAILY [facility] Ropinirole HCl (Requip -) 0.5 mg PO 0600,1000,1400,1800 [facility] Tamsulosin HCl (Flomax -) 0.4 mg PO DAILY@0830 [facility] - Objective Vital Signs: Vital Signs Temperature 98.2 F 01/01/18 05:00 Pulse Rate 81 01/01/18 05:00 Respiratory Rate 20 01/01/18 05:00 Blood Pressure 165/89 01/01/18 05:00 O2 Sat by Pulse Oximetry (%) 96 12/31/17 20:56 Cardiovascular: Yes: S1, S2 Respiratory: Yes: Regular, CTA Bilaterally Gastrointestinal: Yes: Normal Bowel Sounds, Soft Neurological: Yes: Alert, Weakness Labs: CBC, BMP 01/01/18 05:23 INR, PTT INR 3.52 (0.82-1.09) H 01/01/18 05:23 Problem List - Problems (1) Hematuria Assessment/Plan: ua and uc iv abx urology consult noted--cysto as outpatient Code(s): R31.9 - HEMATURIA, UNSPECIFIED (2) Pneumonia Assessment/Plan: iv abx follow up with pulm noted--ct as outpatient Code(s): J18.9 - PNEUMONIA, UNSPECIFIED ORGANISM (3) Dysphagia Assessment/Plan: esophogram--egd per gi gi on board Code(s): R13.10 - DYSPHAGIA, UNSPECIFIED Qualifiers: Dysphagia type: unspecified Qualified Code(s): R13.10 - Dysphagia, unspecified (4) Parkinson disease Assessment/Plan: resume meds and observe pt neuro consult noted Code(s): G20 - PARKINSON'S DISEASE (5) Uncontrolled hypertension Assessment/Plan: observe on current meds Vital Signs Period Temp Pulse Resp BP Sys/Hernandes Pulse Ox Last 24 Hr 97.5 F-98.4 F 81-99 20-20 132-165/77-92 96-98 Code(s): I10 - ESSENTIAL (PRIMARY) HYPERTENSION
[2018-01-01 08:43] LABS: CHLORIDE 98 mmol/L (98-107); POTASSIUM 3.5 mmol/L (3.5-5.1); SODIUM 134 mmol/L (136-145)
[2018-01-01 08:49] LABS: ALBUMIN 3.4 g/dl (3.4-5.0); ALK PHOS 117 U/L (45-117); ANION GAP 10 (8-16); BILIRUBIN,TOTAL 1.3 mg/dL (0.2-1.0); BLOOD UREA NITROGEN 29 mg/dL (7-18); CALCIUM 8.1 mg/dL (8.5-10.1); CO2 26 mmol/L (21-32); CREATININE 0.9 mg/dL (0.7-1.3); GLUCOSE,RANDOM 102 mg/dL (74-106); SGOT/AST 46 U/L (15-37); SGPT/ALT 13 U/L (12-78); TOT PROT 7.4 g/dl (6.4-8.2)
[2018-01-01] MEDS: TAMSULOSIN HCL 0.4 MG CAP.ER.24H (FP) PO SCH (09:56)
[2018-01-01] MEDS: rOPINIRole HCL 0.25 MG TABLET PO SCH ×3 (09:59→17:31)
[2018-01-01] MEDS: PANTOPRAZOLE 40 MG TABLET (FP) PO SCH (09:59)
[2018-01-01] MEDS: CARBIDOPA/LEVODOPA 25/250 TABLET (FP) PO SCH ×3 (10:00→17:31)
[2018-01-01] MEDS ORDERED: PT OWN MED DRAWER 7, Y5N ONE ×2 (10:04→13:36)
--- NOTE | 2018-01-01 12:00 | PN ---
Progress Note, Physician Chief Complaint: Events noted Not in distress History of Present Illness: Patient was seen and examined. Awake and alert. Chart was reviewed Denies chest pain, SOB or palpitations BP better - Current Medication List Current Medications: Active Medications Atorvastatin Calcium (Lipitor -) 40 mg PO HS [facility] Last Admin: 12/31/17 22:38 Dose: 40 mg Carbidopa/Levodopa (Sinemet 25/250 -) 1 each PO 0600,1000,1400,1800 [facility] Last Admin: 01/01/18 10:00 Dose: 1 each Carvedilol (Coreg -) 6.25 mg PO BID [facility] [place] Last Admin: 01/01/18 09:56 Dose: Not Given Levofloxacin (Levaquin 500 Mg Premixed Ivpb -) 500 mg in 100 mls @ 100 mls/hr IVPB DAILY [facility] [place] Last Admin: 01/01/18 10:23 Dose: 100 mls/hr Losartan Potassium (Cozaar -) 100 mg PO DAILY [facility] [place] Last Admin: 01/01/18 09:57 Dose: Not Given Pantoprazole Sodium (Protonix -) 40 mg PO DAILY [facility] [place] Last Admin: 01/01/18 09:59 Dose: 40 mg Ropinirole HCl (Requip -) 0.5 mg PO 0600,1000,1400,1800 [facility] [place] Last Admin: 01/01/18 09:59 Dose: 0.5 mg Tamsulosin HCl (Flomax -) 0.4 mg PO DAILY@0830 [facility] [place] Last Admin: 01/01/18 09:56 Dose: 0.4 mg - Objective Vital Signs: Vital Signs Temperature 98.2 F 01/01/18 05:00 Pulse Rate 81 01/01/18 05:00 Respiratory Rate 20 01/01/18 05:00 Blood Pressure 165/89 01/01/18 05:00 O2 Sat by Pulse Oximetry (%) 96 12/31/17 20:56 Eyes: Yes: PERRL HENT: Yes: Atraumatic Neck: Yes: Supple Cardiovascular: Yes: Regular Rate and Rhythm, Murmur (Soft SM), S1, S2 Respiratory: Yes: CTA Bilaterally Gastrointestinal: Yes: Normal Bowel Sounds, Soft. No: Tenderness Edema: No Additional Findings/Remarks: - Review of Systems Constitutional: denies: Chills, Fever Cardiovascular: denies: Chest Pain, Palpitations, Shortness of Breath Respiratory: denies: Cough, Hemoptysis, Orthopnea, PND, SOB, SOB on Exertion Gastrointestinal: denies: Abdominal Pain, Constipation, Diarrhea, Melena, Nausea , Rectal Bleeding, Vomiting Neurological: reports: Unsteady Gait, Weakness. denies: Dizziness, Headache, Seizure, Syncope Labs: CBC, BMP 01/01/18 05:23 01/01/18 05:23 INR, PTT INR 3.52 (0.82-1.09) H 01/01/18 05:23 Problem List - Problems (1) CVA (cerebral vascular accident) Code(s): I63.9 - CEREBRAL INFARCTION, UNSPECIFIED Qualifiers: Laterality of affected vessel: unspecified (2) Unsteady gait Code(s): R26.81 - UNSTEADINESS ON FEET (3) Hypercholesterolemia Code(s): E78.00 - PURE HYPERCHOLESTEROLEMIA, UNSPECIFIED (4) Dysphagia Code(s): R13.10 - DYSPHAGIA, UNSPECIFIED Qualifiers: Dysphagia type: unspecified Qualified Code(s): R13.10 - Dysphagia, unspecified (5) Parkinson disease Code(s): G20 - PARKINSON'S DISEASE (6) Uncontrolled hypertension Code(s): I10 - ESSENTIAL (PRIMARY) HYPERTENSION Assessment/Plan 1. Dysphagia 2. Hypertensive urgency - BP better 3. Atrial fibrillation [id number] score probably 5 and supratherapeutic INR 4. History of CVA with no major residual deficit 5. Hypercholestetrolemia 6. Parkinson's disease 7. Unsteady gait PLAN: 1. Hold Coumadin and let INR drift down. If GI intervention is planned, start Heparin drip when INR falls below 2.0 to bridge. Eventually he would need to continue with anticoagulation in view of above [id number] score stoke risk. If no intervention is planned, then start Coumadin 2. GI and input noted 3. Continue Carvedilol and Losartan - up-titrate 4. Transthoracic echocardiography report noted 5. Supportive care Further plans are to follow Henrique Thornton MD
--- NOTE | 2018-01-01 13:31 | PN ---
Progress Note (short form) - Note Progress Note: PULMONARY Denies shortness of breath, cough or wheezing. Last Vital Signs Temp Pulse Resp BP Pulse Ox 97.5 F L 86 20 164/92 98 01/01/18 09:00 01/01/18 09:00 01/01/18 09:00 01/01/18 09:00 01/01/18 09:00 Gen: NAD at rest Heart: RRR Lung: decreased breath sounds at the bases Abd: soft, nontender Ext: no edema CBC, BMP 01/01/18 05:23 01/01/18 05:23 Active Medications Atorvastatin Calcium (Lipitor -) 40 mg PO HS [facility] Last Admin: 12/31/17 22:38 Dose: 40 mg Carbidopa/Levodopa (Sinemet 25/250 -) 1 each PO 0600,1000,1400,1800 [facility] Last Admin: 01/01/18 10:00 Dose: 1 each Carvedilol (Coreg -) 6.25 mg PO BID [facility] Last Admin: 01/01/18 09:56 Dose: Not Given Levofloxacin (Levaquin 500 Mg Premixed Ivpb -) 500 mg in 100 mls @ 100 mls/hr IVPB DAILY [facility] Last Admin: 01/01/18 10:23 Dose: 100 mls/hr Losartan Potassium (Cozaar -) 100 mg PO DAILY [facility] Last Admin: 01/01/18 09:57 Dose: Not Given Pantoprazole Sodium (Protonix -) 40 mg PO DAILY [facility] Last Admin: 01/01/18 09:59 Dose: 40 mg Ropinirole HCl (Requip -) 0.5 mg PO 0600,1000,1400,1800 [facility] Last Admin: 01/01/18 09:59 Dose: 0.5 mg Tamsulosin HCl (Flomax -) 0.4 mg PO DAILY@0830 [facility] Last Admin: 01/01/18 09:56 Dose: 0.4 mg A/P Hypertensive Urgency UTI Dysphagia Parkinsons h/o CVA Atrial Fibrillation Lung Nodule - BP control - continue antibiotics - aspiration precautions - O2 as needed - rate controlled - continue anticoagulation - outpt f/u of lung nodule
--- NOTE | 2018-01-01 16:51 | PN ---
Progress Note, Physician History of Present Illness: Pt seen and examined at bedside. He is awake and appears comfortable. - Current Medication List Current Medications: Active Medications Atorvastatin Calcium (Lipitor -) 40 mg PO HS [facility] Last Admin: 12/31/17 22:38 Dose: 40 mg Carbidopa/Levodopa (Sinemet 25/250 -) 1 each PO 0600,1000,1400,1800 [facility] Last Admin: 01/01/18 13:47 Dose: 1 each Carvedilol (Coreg -) 6.25 mg PO BID [facility] Last Admin: 01/01/18 09:56 Dose: Not Given Levofloxacin (Levaquin 500 Mg Premixed Ivpb -) 500 mg in 100 mls @ 100 mls/hr IVPB DAILY [facility] Last Admin: 01/01/18 10:23 Dose: 100 mls/hr Losartan Potassium (Cozaar -) 100 mg PO DAILY [facility] Last Admin: 01/01/18 09:57 Dose: Not Given Pantoprazole Sodium (Protonix -) 40 mg PO DAILY [facility] Last Admin: 01/01/18 09:59 Dose: 40 mg Ropinirole HCl (Requip -) 0.5 mg PO 0600,1000,1400,1800 [facility] Last Admin: 01/01/18 13:46 Dose: 0.5 mg Tamsulosin HCl (Flomax -) 0.4 mg PO DAILY@0830 [facility] Last Admin: 01/01/18 09:56 Dose: 0.4 mg - Objective Vital Signs: Vital Signs Temperature 97.9 F 01/01/18 14:00 Pulse Rate 95 H 01/01/18 14:00 Respiratory Rate 20 01/01/18 09:00 Blood Pressure 140/96 01/01/18 14:00 O2 Sat by Pulse Oximetry (%) 98 01/01/18 09:00 Constitutional: Yes: Calm Eyes: Yes: Conjunctiva Clear HENT: Yes: Atraumatic Cardiovascular: Yes: S1, S2 Respiratory: Yes: CTA Bilaterally Gastrointestinal: Yes: Soft Genitourinary: Yes: Monterroso Present, Hematuria Extremities: Yes: WNL Edema: No Neurological: Yes: Pre-Existing Deficit Labs: CBC, BMP 01/01/18 05:23 01/01/18 05:23 INR, PTT INR 3.52 (0.82-1.09) H 01/01/18 05:23 Problem List - Problems (1) Atrial fibrillation with rapid ventricular response Code(s): I48.91 - UNSPECIFIED ATRIAL FIBRILLATION (2) Dysphagia Code(s): R13.10 - DYSPHAGIA, UNSPECIFIED Qualifiers: Dysphagia type: unspecified Qualified Code(s): R13.10 - Dysphagia, unspecified (3) Hematuria Code(s): R31.9 - HEMATURIA, UNSPECIFIED (4) Poorly controlled blood pressure Code(s): I99.8 - OTHER DISORDER OF CIRCULATORY SYSTEM Assessment/Plan Current Medications Generic Name Dose Route Start Last Admin Trade Name Rosemary PRN Reason Stop Dose Admin Atorvastatin Calcium 40 mg 12/30/17 22:00 12/31/17 22:38 Lipitor - PO 40 mg HS [facility] Administration Carbidopa/Levodopa 1 each 01/01/18 10:00 01/01/18 13:47 Sinemet 25/250 - PO 1 each 0600,1000,1400,1800 [facility] Administration Carvedilol 6.25 mg 12/31/17 14:00 01/01/18 09:56 Coreg - PO Not Given BID [facility] Levofloxacin 500 mg in 100 mls @ 100 mls/hr 12/31/17 10:00 01/01/18 10:23 Levaquin 500 Mg Premixed Ivpb - IVPB 100 mls/hr DAILY [facility] Administration Losartan Potassium 100 mg 12/30/17 11:45 01/01/18 09:57 Cozaar - PO Not Given DAILY [facility] Pantoprazole Sodium 40 mg 12/31/17 10:03 01/01/18 09:59 Protonix - PO 40 mg DAILY [facility] Administration Ropinirole HCl 0.5 mg 01/01/18 10:00 01/01/18 13:46 Requip - PO 0.5 mg 0600,1000,1400,1800 [facility] Administration Tamsulosin HCl 0.4 mg 12/31/17 10:06 01/01/18 09:56 Flomax - PO 0.4 mg DAILY@0830 [facility] Administration Impression 1. hematuria 2. htn 3. parkinsons 4. dysphagia 5. a-fib 6. cva Plan - monitor bp - cont current meds - can titrate coreg dose up as needed - urology input appreciated - will follow Dr Bermudez
--- NOTE | 2018-01-01 18:35 | PN ---
GI Progress Note Subjective: eating well with new Parkinson medication, most likely the patient has oral pharyngeal dysphagia than esophageal obstruction. - Objective Vital Signs: Vital Signs Temperature 97.9 F 01/01/18 14:00 Pulse Rate 95 H 01/01/18 14:00 Respiratory Rate 20 01/01/18 09:00 Blood Pressure 140/96 01/01/18 14:00 O2 Sat by Pulse Oximetry (%) 98 01/01/18 09:00 Constitutional: Well Nourished Eyes: Yes: Conjunctiva Clear HENT: Yes: Atraumatic Neck: Yes: Supple Cardiovascular: Yes: Regular Rate and Rhythm Respiratory: Yes: CTA Bilaterally ...Palpate: Yes: Soft. No: Firm/Rigid, Guarding, Hepatomegaly, Mass, Pulsatile Mass, Splenomegaly, Tenderness Labs: CBC, BMP 01/01/18 05:23 01/01/18 05:23 INR, PTT INR 3.52 (0.82-1.09) H 01/01/18 05:23 Problem List - Problems (1) Dysphagia Assessment/Plan: r> continue pureed diet, no need for endoscopy as symptoms of dysphagia resolved , further w/u as an outpatient Code(s): R13.10 - DYSPHAGIA, UNSPECIFIED Qualifiers: Dysphagia type: unspecified Qualified Code(s): R13.10 - Dysphagia, unspecified
[2018-01-01] MEDS: ATORVASTATIN CA 40 MG TABLET (FP) PO SCH (22:42)
[2018-01-02] MEDS: rOPINIRole HCL 0.25 MG TABLET PO SCH ×4 (06:28→17:41)
[2018-01-02] MEDS: CARBIDOPA/LEVODOPA 25/250 TABLET (FP) PO SCH ×4 (06:29→17:41)
[2018-01-02] MEDS: LOSARTAN POTASSIUM 50 MG TABLET (FP) PO SCH ×2 (06:55→09:11)
[2018-01-02] MEDS: CARVEDILOL 6.25 MG TABLET (FP) PO SCH ×2 (06:56→09:11)
[2018-01-02 07:47] LABS: INR 2.27 (0.82-1.09); PROTHROMBIN TIME (PATIENT) 25.6 SEC (9.98-11.88)
[2018-01-02] MEDS: TAMSULOSIN HCL 0.4 MG CAP.ER.24H (FP) PO SCH (09:11)
[2018-01-02] MEDS: PANTOPRAZOLE 40 MG TABLET (FP) PO SCH (09:11)
--- NOTE | 2018-01-02 09:22 | PN ---
Progress Note, Physician History of Present Illness: C/O SOB NO CP - Current Medication List Current Medications: Active Medications Atorvastatin Calcium (Lipitor -) 40 mg PO HS [facility] Last Admin: 01/01/18 22:42 Dose: 40 mg Carbidopa/Levodopa (Sinemet 25/250 -) 1 each PO 0600,1000,1400,1800 [facility] Last Admin: 01/02/18 09:12 Dose: 1 each Carvedilol (Coreg -) 6.25 mg PO BID [facility] Last Admin: 01/02/18 09:11 Dose: Not Given Levofloxacin (Levaquin 500 Mg Premixed Ivpb -) 500 mg in 100 mls @ 100 mls/hr IVPB DAILY [facility] Last Admin: 01/02/18 09:11 Dose: 100 mls/hr Losartan Potassium (Cozaar -) 100 mg PO DAILY [facility] Last Admin: 01/02/18 09:11 Dose: Not Given Pantoprazole Sodium (Protonix -) 40 mg PO DAILY [facility] Last Admin: 01/02/18 09:11 Dose: 40 mg Ropinirole HCl (Requip -) 0.5 mg PO 0600,1000,1400,1800 [facility] Last Admin: 01/02/18 09:00 Dose: 0.5 mg Tamsulosin HCl (Flomax -) 0.4 mg PO DAILY@0830 [facility] Last Admin: 01/02/18 09:11 Dose: 0.4 mg - Objective Vital Signs: Vital Signs Temperature 98 F 01/02/18 08:03 Pulse Rate 69 01/02/18 08:03 Respiratory Rate 20 01/02/18 08:03 Blood Pressure 133/59 01/02/18 08:03 O2 Sat by Pulse Oximetry (%) 96 01/01/18 21:00 Cardiovascular: Yes: S1, S2 Respiratory: Yes: Regular, CTA Bilaterally Gastrointestinal: Yes: Normal Bowel Sounds, Soft Edema: No Labs: CBC, BMP 01/01/18 05:23 01/01/18 05:23 INR, PTT INR 2.27 (0.82-1.09) H D 01/02/18 06:20 Problem List - Problems (1) Hematuria Assessment/Plan: ua and [facility] urology consult noted--cysto as outpatient Code(s): R31.9 - HEMATURIA, UNSPECIFIED (2) Pneumonia Assessment/Plan: iv abx follow up with pulm noted--ct as outpatient Code(s): J18.9 - PNEUMONIA, UNSPECIFIED ORGANISM (3) Dysphagia Assessment/Plan: improved esophogram--egd differed per gi gi on board Code(s): R13.10 - DYSPHAGIA, UNSPECIFIED Qualifiers: Dysphagia type: unspecified Qualified Code(s): R13.10 - Dysphagia, unspecified (4) Parkinson disease Assessment/Plan: resume meds and observe pt neuro consult noted Code(s): G20 - PARKINSON'S DISEASE (5) Uncontrolled hypertension Assessment/Plan: observe on current meds Vital Signs Period Temp Pulse Resp BP Sys/Hernandes Pulse Ox Last 24 Hr 97.5 F-98.4 F 81-99 20-20 132-165/77-92 96-98 Code(s): I10 - ESSENTIAL (PRIMARY) HYPERTENSION (6) SOB (shortness of breath) Assessment/Plan: ekg cxr ce oxygen Code(s): R06.02 - SHORTNESS OF BREATH
[2018-01-02 10:02] LABS: ARTERIAL BLOOD GAS BASE EXCESS 3.5 meq/l (-2-2); ARTERIAL BLOOD GAS pH 7.45 (7.35-7.45)
[2018-01-02 10:04] LABS: ALLENS TEST POSITIVE
[2018-01-02 10:17] LABS: BASO % 0.4 % (0-2.0); EOS % 11.1 % (0-4.5); HEMATOCRIT 44.4 % (35.4-49); HEMOGLOBIN 14.7 GM/dL (11.7-16.9); LYMPH % 12.6 % (8-40); MCH 29.8 pg (25.7-33.7); MEAN CELL VOLUME 90.4 fl (80-96); MEAN PLT VOLUME 8.7 fl (7.5-11.1); MONO % 11.6 % (3.8-10.2); NEUT % 64.3 % (42.8-82.8); PLATELET COUNT 218 K/MM3 (134-434); RBC 4.91 M/mm3 (4.00-5.60); RDW 13.8 % (11.9-15.9); WHITE BLOOD COUNT 8.4 K/mm3 (4.0-10.0)
[2018-01-02 10:30] LABS: ALBUMIN 3.4 g/dl (3.4-5.0); ANION GAP 8 (8-16); BILIRUBIN,TOTAL 0.9 mg/dL (0.2-1.0); BLOOD UREA NITROGEN 27 mg/dL (7-18); CALCIUM 8.4 mg/dL (8.5-10.1); CHLORIDE 100 mmol/L (98-107); CO2 28 mmol/L (21-32); CREATININE 0.9 mg/dL (0.7-1.3); GLUCOSE,RANDOM 100 mg/dL (74-106); POTASSIUM 3.8 mmol/L (3.5-5.1); SGOT/AST 32 U/L (15-37); SGPT/ALT 27 U/L (12-78); SODIUM 136 mmol/L (136-145); TOT PROT 7.3 g/dl (6.4-8.2)
[2018-01-02 10:33] LABS: ALK PHOS 109 U/L (45-117)
--- NOTE | 2018-01-02 10:58 | PN ---
Progress Note, Physician History of Present Illness: BP control improved. Swallowing improving with initiation of Parkinsons meds. Remains in rate-controlled afib. - Current Medication List Current Medications: Active Medications Atorvastatin Calcium (Lipitor -) 40 mg PO HS [facility] Last Admin: 01/01/18 22:42 Dose: 40 mg Carbidopa/Levodopa (Sinemet 25/250 -) 1 each PO 0600,1000,1400,1800 [facility] Last Admin: 01/02/18 09:12 Dose: 1 each Carvedilol (Coreg -) 6.25 mg PO BID [facility] Last Admin: 01/02/18 09:11 Dose: Not Given Fluticasone Propionate (Flonase -) 1 spray NS BID [facility] Levofloxacin (Levaquin 500 Mg Premixed Ivpb -) 500 mg in 100 mls @ 100 mls/hr IVPB DAILY [facility] Last Admin: 01/02/18 09:11 Dose: 100 mls/hr Losartan Potassium (Cozaar -) 100 mg PO DAILY [facility] Last Admin: 01/02/18 09:11 Dose: Not Given Pantoprazole Sodium (Protonix -) 40 mg PO DAILY [facility] Last Admin: 01/02/18 09:11 Dose: 40 mg Ropinirole HCl (Requip -) 0.5 mg PO 0600,1000,1400,1800 [facility] Last Admin: 01/02/18 09:00 Dose: 0.5 mg Tamsulosin HCl (Flomax -) 0.4 mg PO DAILY@0830 [facility] Last Admin: 01/02/18 09:11 Dose: 0.4 mg - Objective Vital Signs: Vital Signs Temperature 98 F 01/02/18 08:03 Pulse Rate 69 01/02/18 08:03 Respiratory Rate 20 01/02/18 08:03 Blood Pressure 133/59 01/02/18 08:03 O2 Sat by Pulse Oximetry (%) 96 01/01/18 21:00 Constitutional: Yes: No Distress, Calm, Thin Neck: Yes: Supple Cardiovascular: Yes: Pulse Irregular Respiratory: Yes: Regular, Diminished, On Nasal O2 Gastrointestinal: Yes: Normal Bowel Sounds, Soft Edema: No Labs: CBC, BMP 01/02/18 09:40 01/02/18 06:20 INR, PTT INR 2.27 (0.82-1.09) H D 01/02/18 06:20 - ....Imaging Chest X-ray: Report Reviewed (NAD) EKG: Report Reviewed (Afib @ 92 LVH) Problem List - Problems (1) Atrial fibrillation with rapid ventricular response Code(s): I48.91 - UNSPECIFIED ATRIAL FIBRILLATION (2) CVA (cerebral vascular accident) Code(s): I63.9 - CEREBRAL INFARCTION, UNSPECIFIED Qualifiers: Laterality of affected vessel: unspecified (3) Dysphagia Code(s): R13.10 - DYSPHAGIA, UNSPECIFIED Qualifiers: Dysphagia type: oropharyngeal phase Qualified Code(s): R13.12 - Dysphagia, oropharyngeal phase (4) Hypercholesterolemia Code(s): E78.00 - PURE HYPERCHOLESTEROLEMIA, UNSPECIFIED (5) Parkinson disease Code(s): G20 - PARKINSON'S DISEASE (6) Uncontrolled hypertension Code(s): I10 - ESSENTIAL (PRIMARY) HYPERTENSION (7) Unsteady gait Code(s): R26.81 - UNSTEADINESS ON FEET Assessment/Plan 12/30/2017 Echo: Normal biventricular size and fxn, mild KEO, mild-mod AR 1. Possible oropharyngeal dysphagia secondary to Parkinsons Disease improving 2. Hypertensive urgency improving 3. Atrial fibrillation [id number] score 5 and therapeutic INR 4. History of CVA with no major residual deficit 5. Hypercholestetrolemia 6. Parkinson's disease 7. Unsteady gait PLAN: 1. Resume Coumadin per INR 2-3 given elevated [id number] stroke risk 2. Continue carvedilol 6.25 bid with uptitration as tolerated, continue Losartan 100 mg once a day and Lipitor 40 qhs 3. Aspiration precautions, speech and swallow recs appreciated
--- NOTE | 2018-01-02 11:03 | PN ---
Progress Note, [place] - Note Progress Note: Selected Entries 01/01/18 01/01/18 01/01/18 01:00 05:00 08:00 Breakfast Supper 100% Temperature 98.0 F 98.2 F 01/01/18 01/01/18 01/01/18 09:00 12:51 14:00 Breakfast 75% Supper Temperature 97.5 F L 97.9 F 01/01/18 01/01/18 01/01/18 17:00 19:43 21:00 Breakfast Supper 100% Temperature 97.7 F 97.3 F L 01/02/18 01/02/18 01/02/18 06:30 07:52 08:03 Breakfast Supper 100% Temperature 97.8 F 98 F Laboratory Tests 12/31/17 01/01/18 01/02/18 06:11 05:23 09:40 WBC 10.8 H 9.0 8.4 MBS reviewed with pt and staff. Pt will benefit from continued swallowing tx upon d/c.
[2018-01-02] MEDS: FLUTICASONE PROP 0.05% 16 GM NASAL SPRAY NS SCH ×2 (11:48→21:40)
[2018-01-02] MEDS ORDERED: CARVEDILOL 6.25 MG TABLET (FP) PO ONE (13:00)
--- NOTE | 2018-01-02 14:02 | EKG ---
Test Reason : Blood Pressure : / mmHG Vent. Rate : 092 BPM Atrial Rate : 288 BPM P-R Int : 000 ms QRS Dur : 084 ms QT Int : 358 ms P-R-T Axes : 000 064 031 degrees QTc Int : 442 ms ATRIAL FIBRILLATION VOLTAGE CRITERIA FOR LEFT VENTRICULAR HYPERTROPHY ABNORMAL ECG WHEN COMPARED WITH ECG OF 31-DEC-2017 08:44, NO SIGNIFICANT CHANGE WAS FOUND Confirmed by VARGHESE PERRY MD ([id number]) on 01/02/2018 2:01:42 PM Referred By: XAVI MCINTOSH DR Confirmed By:VARGHESE PERRY MD
[2018-01-02] MEDS: CARVEDILOL 12.5 MG TABLET (FP) PO SCH ×2 (15:01→21:40)
--- NOTE | 2018-01-02 16:06 | PN ---
Progress Note, Physician History of Present Illness: Pt seen and examined at bedside. He is awake and appears comfortable. - Current Medication List Current Medications: Active Medications Atorvastatin Calcium (Lipitor -) 40 mg PO HS [facility] Last Admin: 01/01/18 22:42 Dose: 40 mg Carbidopa/Levodopa (Sinemet 25/250 -) 1 each PO 0600,1000,1400,1800 [facility] Last Admin: 01/02/18 13:01 Dose: 1 each Carvedilol (Coreg -) 12.5 mg PO BID [facility] Last Admin: 01/02/18 15:01 Dose: 12.5 mg Fluticasone Propionate (Flonase -) 1 spray NS BID [facility] Last Admin: 01/02/18 11:48 Dose: 1 spray Levofloxacin (Levaquin 500 Mg Premixed Ivpb -) 500 mg in 100 mls @ 100 mls/hr IVPB DAILY [facility] Last Admin: 01/02/18 09:11 Dose: 100 mls/hr Losartan Potassium (Cozaar -) 100 mg PO DAILY [facility] Last Admin: 01/02/18 09:11 Dose: Not Given Pantoprazole Sodium (Protonix -) 40 mg PO DAILY [facility] Last Admin: 01/02/18 09:11 Dose: 40 mg Ropinirole HCl (Requip -) 0.5 mg PO 0600,1000,1400,1800 [facility] Last Admin: 01/02/18 13:00 Dose: 0.5 mg Tamsulosin HCl (Flomax -) 0.4 mg PO DAILY@0830 [facility] Last Admin: 01/02/18 09:11 Dose: 0.4 mg Warfarin Sodium (Coumadin -) 5 mg PO DAILY@1800 [facility] - Objective Vital Signs: Vital Signs Temperature 97.6 F 01/02/18 14:00 Pulse Rate 85 01/02/18 14:00 Respiratory Rate 20 01/02/18 08:03 Blood Pressure 190/106 01/02/18 14:00 O2 Sat by Pulse Oximetry (%) 95 01/02/18 08:00 Constitutional: Yes: Calm Eyes: Yes: Conjunctiva Clear HENT: Yes: Atraumatic Cardiovascular: Yes: S1, S2 Respiratory: Yes: On Nasal O2 Gastrointestinal: Yes: Soft Genitourinary: Yes: Monterroso Present, Hematuria Musculoskeletal: Yes: Muscle Weakness Edema: No Neurological: Yes: Pre-Existing Deficit Labs: CBC, BMP 01/02/18 09:40 01/02/18 06:20 INR, PTT INR 2.27 (0.82-1.09) H D 01/02/18 06:20 Problem List - Problems (1) Atrial fibrillation with rapid ventricular response Code(s): I48.91 - UNSPECIFIED ATRIAL FIBRILLATION (2) Dysphagia Code(s): R13.10 - DYSPHAGIA, UNSPECIFIED Qualifiers: Dysphagia type: oropharyngeal phase Qualified Code(s): R13.12 - Dysphagia, oropharyngeal phase (3) Hematuria Code(s): R31.9 - HEMATURIA, UNSPECIFIED (4) Poorly controlled blood pressure Code(s): I99.8 - OTHER DISORDER OF CIRCULATORY SYSTEM Assessment/Plan Current Medications Generic Name Dose Route Start Last Admin Trade Name Freq PRN Reason Stop Dose Admin Atorvastatin Calcium 40 mg 12/30/17 22:00 01/01/18 22:42 Lipitor - PO 40 mg HS [facility] Administration Carbidopa/Levodopa 1 each 01/01/18 10:00 01/02/18 13:01 Sinemet 25/250 - PO 1 each 0600,1000,1400,1800 [facility] Administration Carvedilol 12.5 mg 01/02/18 14:00 01/02/18 15:01 Coreg - PO 12.5 mg BID [facility] Administration Fluticasone Propionate 1 spray 01/02/18 10:00 01/02/18 11:48 Flonase - NS 1 spray BID [facility] Administration Levofloxacin 500 mg in 100 mls @ 100 mls/hr 12/31/17 10:00 01/02/18 09:11 Levaquin 500 Mg Premixed Ivpb - IVPB 100 mls/hr DAILY [facility] Administration Losartan Potassium 100 mg 12/30/17 11:45 01/02/18 09:11 Cozaar - PO Not Given DAILY [facility] Pantoprazole Sodium 40 mg 12/31/17 10:03 01/02/18 09:11 Protonix - PO 40 mg DAILY [facility] Administration Ropinirole HCl 0.5 mg 01/01/18 10:00 01/02/18 13:00 Requip - PO 0.5 mg 0600,1000,1400,1800 [facility] Administration Tamsulosin HCl 0.4 mg 12/31/17 10:06 01/02/18 09:11 Flomax - PO 0.4 mg DAILY@0830 [facility] Administration Warfarin Sodium 5 mg 01/02/18 18:00 Coumadin - PO DAILY@1800 [facility] Impression 1. hematuria 2. htn 3. parkinsons 4. dysphagia 5. a-fib 6. cva Plan - coreg increase to 12.5, monitor bp and increase to 25 bid as needed - renal function is stable - pt still has hematuria - cont faizan - will follow Dr Bermudez
[2018-01-02] MEDS: WARFARIN NA 5 MG TABLET (UD) PO SCH (17:41)
--- NOTE | 2018-01-02 18:10 | PN ---
Progress Note (short form) - Note Progress Note: NEUROLOGY FOLLOW-UP: Events reviewed and discussed with RN. Swallowing much improved today, while sitting up at edge of bed. Pt is wake, alert, animated. Festinating speech Much more expressive. Gag improved. Intermittent rest tremor L>R. + cogwheeling- improved. SURENDRA's also improved. Few festinating steps. IMP: Advanced PD. Improved on current regimen including dysphagia. Plan : Continue current regimen. Mobilize OO Bed with PT Thank you very much, Valentino Blake MD
[2018-01-02] MEDS: ATORVASTATIN CA 40 MG TABLET (FP) PO SCH (21:40)
[2018-01-03] MEDS: CARVEDILOL 12.5 MG TABLET (FP) PO SCH ×3 (06:38→21:28)
[2018-01-03] MEDS: rOPINIRole HCL 0.25 MG TABLET PO SCH ×4 (06:38→17:19)
[2018-01-03] MEDS: LOSARTAN POTASSIUM 50 MG TABLET (FP) PO SCH ×2 (06:38→09:57)
[2018-01-03] MEDS: CARBIDOPA/LEVODOPA 25/250 TABLET (FP) PO SCH ×4 (06:39→17:19)
[2018-01-03] MEDS ORDERED: PT OWN MED DRAWER 7, Y5N ONE (09:54)
[2018-01-03] MEDS: PANTOPRAZOLE 40 MG TABLET (FP) PO SCH (10:01)
[2018-01-03] MEDS: TAMSULOSIN HCL 0.4 MG CAP.ER.24H (FP) PO SCH (10:01)
[2018-01-03] MEDS: FLUTICASONE PROP 0.05% 16 GM NASAL SPRAY NS SCH ×2 (10:03→21:31)
--- NOTE | 2018-01-03 13:28 | PN ---
Progress Note, Physician History of Present Illness: comfortable in bed no complaints - Current Medication List Current Medications: Active Medications Atorvastatin Calcium (Lipitor -) 40 mg PO HS [facility] Last Admin: 01/02/18 21:40 Dose: 40 mg Carbidopa/Levodopa (Sinemet 25/250 -) 1 each PO 0600,1000,1400,1800 [facility] Last Admin: 01/03/18 10:02 Dose: 1 each Carvedilol (Coreg -) 12.5 mg PO BID [facility] Last Admin: 01/03/18 06:38 Dose: 12.5 mg Fluticasone Propionate (Flonase -) 1 spray NS BID [facility] Last Admin: 01/03/18 10:03 Dose: 1 spray Levofloxacin (Levaquin 500 Mg Premixed Ivpb -) 500 mg in 100 mls @ 100 mls/hr IVPB DAILY [facility] Last Admin: 01/03/18 10:00 Dose: 100 mls/hr Losartan Potassium (Cozaar -) 100 mg PO DAILY [facility] Last Admin: 01/03/18 06:38 Dose: 100 mg Pantoprazole Sodium (Protonix -) 40 mg PO DAILY [facility] Last Admin: 01/03/18 10:01 Dose: 40 mg Ropinirole HCl (Requip -) 0.5 mg PO 0600,1000,1400,1800 [facility] Last Admin: 01/03/18 10:01 Dose: 0.5 mg Tamsulosin HCl (Flomax -) 0.4 mg PO DAILY@0830 [facility] Last Admin: 01/03/18 10:01 Dose: 0.4 mg Warfarin Sodium (Coumadin -) 5 mg PO DAILY@1800 [facility] Last Admin: 01/02/18 17:41 Dose: 5 mg - Objective Vital Signs: Vital Signs Temperature 98.1 F 01/03/18 09:00 Pulse Rate 68 01/03/18 09:00 Respiratory Rate 18 01/03/18 09:00 Blood Pressure 121/81 01/03/18 09:00 O2 Sat by Pulse Oximetry (%) 95 01/03/18 09:00 Cardiovascular: Yes: S1, S2 Respiratory: Yes: Regular, CTA Bilaterally Gastrointestinal: Yes: Normal Bowel Sounds, Soft. No: Tenderness Labs: CBC, BMP 01/02/18 09:40 01/02/18 06:20 INR, PTT INR 2.27 (0.82-1.09) H D 01/02/18 06:20 Problem List - Problems (1) Hematuria Assessment/Plan: u[facility] and [facility] urology consult noted--cysto as outpatient Code(s): R31.9 - HEMATURIA, UNSPECIFIED (2) Pneumonia Assessment/Plan: iv abx-levaquin follow up with pulm noted--ct as outpatient Code(s): J18.9 - PNEUMONIA, UNSPECIFIED ORGANISM (3) Dysphagia Assessment/Plan: improved esophogram--egd differed per gi gi on board Code(s): R13.10 - DYSPHAGIA, UNSPECIFIED Qualifiers: Dysphagia type: oropharyngeal phase Qualified Code(s): R13.12 - Dysphagia, oropharyngeal phase (4) Parkinson disease Assessment/Plan: resume meds and observe pt neuro consult noted Code(s): G20 - PARKINSON'S DISEASE (5) Uncontrolled hypertension Assessment/Plan: observe on current meds Vital Signs Period Temp Pulse Resp BP Sys/Hernandes Pulse Ox Last 24 Hr 97.6 F-98.4 F 65-86 16-20 121-190/81-120 95-95 Code(s): I10 - ESSENTIAL (PRIMARY) HYPERTENSION (6) SOB (shortness of breath) Assessment/Plan: resolved Code(s): R06.02 - SHORTNESS OF BREATH
--- NOTE | 2018-01-03 14:38 | PN ---
Progress Note, Physician History of Present Illness: BP control improved. Swallowing improving with initiation of Parkinsons meds. Remains in rate-controlled afib. - Current Medication List Current Medications: Active Medications Atorvastatin Calcium (Lipitor -) 40 mg PO HS [facility] Last Admin: 01/02/18 21:40 Dose: 40 mg Carbidopa/Levodopa (Sinemet 25/250 -) 1 each PO 0600,1000,1400,1800 [facility] Last Admin: 01/03/18 10:02 Dose: 1 each Carvedilol (Coreg -) 12.5 mg PO BID [facility] Last Admin: 01/03/18 06:38 Dose: 12.5 mg Fluticasone Propionate (Flonase -) 1 spray NS BID [facility] Last Admin: 01/03/18 10:03 Dose: 1 spray Levofloxacin (Levaquin 500 Mg Premixed Ivpb -) 500 mg in 100 mls @ 100 mls/hr IVPB DAILY [facility] Last Admin: 01/03/18 10:00 Dose: 100 mls/hr Losartan Potassium (Cozaar -) 100 mg PO DAILY [facility] Last Admin: 01/03/18 06:38 Dose: 100 mg Pantoprazole Sodium (Protonix -) 40 mg PO DAILY [facility] Last Admin: 01/03/18 10:01 Dose: 40 mg Ropinirole HCl (Requip -) 0.5 mg PO 0600,1000,1400,1800 [facility] Last Admin: 01/03/18 10:01 Dose: 0.5 mg Tamsulosin HCl (Flomax -) 0.4 mg PO DAILY@0830 [facility] Last Admin: 01/03/18 10:01 Dose: 0.4 mg Warfarin Sodium (Coumadin -) 5 mg PO DAILY@1800 [facility] Last Admin: 01/02/18 17:41 Dose: 5 mg - Objective Vital Signs: Vital Signs Temperature 98.1 F 01/03/18 09:00 Pulse Rate 68 01/03/18 09:00 Respiratory Rate 18 01/03/18 09:00 Blood Pressure 121/81 01/03/18 09:00 O2 Sat by Pulse Oximetry (%) 95 01/03/18 09:00 Constitutional: Yes: No Distress, Calm, Thin Neck: Yes: Supple Cardiovascular: Yes: Pulse Irregular Respiratory: Yes: Regular, Diminished, On Nasal O2 Gastrointestinal: Yes: Soft, Hypoactive Bowel Sounds Edema: No Labs: CBC, BMP 01/02/18 09:40 01/02/18 06:20 INR, PTT INR 2.27 (0.82-1.09) H D 01/02/18 06:20 - ....Imaging EKG: Report Reviewed (Afib@92 [facility] Tele: Rate-controlled Afib) Problem List - Problems (1) Atrial fibrillation with rapid ventricular response Code(s): I48.91 - UNSPECIFIED ATRIAL FIBRILLATION (2) CVA (cerebral vascular accident) Code(s): I63.9 - CEREBRAL INFARCTION, UNSPECIFIED Qualifiers: Laterality of affected vessel: unspecified (3) Dysphagia Code(s): R13.10 - DYSPHAGIA, UNSPECIFIED Qualifiers: Dysphagia type: oropharyngeal phase Qualified Code(s): R13.12 - Dysphagia, oropharyngeal phase (4) Hypercholesterolemia Code(s): E78.00 - PURE HYPERCHOLESTEROLEMIA, UNSPECIFIED (5) Parkinson disease Code(s): G20 - PARKINSON'S DISEASE (6) Uncontrolled hypertension Code(s): I10 - ESSENTIAL (PRIMARY) HYPERTENSION (7) Unsteady gait Code(s): R26.81 - UNSTEADINESS ON FEET Assessment/Plan 12/30/2017 Echo: Normal biventricular size and fxn, mild KEO, mild-mod AR 1. Possible oropharyngeal dysphagia secondary to Parkinsons Disease improving 2. Hypertensive urgency improving 3. Atrial fibrillation [id number] score 5 and therapeutic INR 4. History of CVA with no major residual deficit 5. Hypercholestetrolemia 6. Parkinson's disease 7. Unsteady gait 8. Hematuria PLAN: 1. Continue Coumadin per INR 2-3 given elevated [id number] stroke risk 2. Continue carvedilol 12.5 bid with uptitration as tolerated, continue Losartan 100 mg once a day and Lipitor 40 qhs 3. Aspiration precautions, speech and swallow recs appreciated 4. D/c telemetry
--- NOTE | 2018-01-03 17:04 | PN ---
Progress Note (short form) - Note Progress Note: covering dr reyes HIgh BP improving no c/o Active Medications Atorvastatin Calcium (Lipitor -) 40 mg PO HS [facility] Last Admin: 01/02/18 21:40 Dose: 40 mg Carbidopa/Levodopa (Sinemet 25/250 -) 1 each PO 0600,1000,1400,1800 [facility] Last Admin: 01/03/18 15:31 Dose: 1 each Carvedilol (Coreg -) 12.5 mg PO BID [facility] Last Admin: 01/03/18 09:56 Dose: Not Given Fluticasone Propionate (Flonase -) 1 spray NS BID [facility] Last Admin: 01/03/18 10:03 Dose: 1 spray Levofloxacin (Levaquin 500 Mg Premixed Ivpb -) 500 mg in 100 mls @ 100 mls/hr IVPB DAILY [facility] Last Admin: 01/03/18 10:00 Dose: 100 mls/hr Losartan Potassium (Cozaar -) 100 mg PO DAILY [facility] Last Admin: 01/03/18 09:57 Dose: Not Given Pantoprazole Sodium (Protonix -) 40 mg PO DAILY [facility] Last Admin: 01/03/18 10:01 Dose: 40 mg Ropinirole HCl (Requip -) 0.5 mg PO 0600,1000,1400,1800 [facility] Last Admin: 01/03/18 15:30 Dose: 0.5 mg Tamsulosin HCl (Flomax -) 0.4 mg PO DAILY@0830 [facility] Last Admin: 01/03/18 10:01 Dose: 0.4 mg Warfarin Sodium (Coumadin -) 5 mg PO DAILY@1800 [facility] Last Admin: 01/02/18 17:41 Dose: 5 mg Last Vital Signs Temp Pulse Resp BP Pulse Ox 98.7 F 80 20 147/92 95 01/03/18 14:00 01/03/18 14:00 01/03/18 14:00 01/03/18 14:00 01/03/18 09:00 alert, dysarthric Lungs clear Heart Reg Abd soft Ext no edema CBC, BMP 01/02/18 09:40 01/02/18 06:20 IMP- HTN Parkinson Disease Prerenal azotemia watch Plan- continue same rx
[2018-01-03 17:17] LABS: INR 1.5 (0.82-1.09); PROTHROMBIN TIME (PATIENT) 16.9 SEC (9.98-11.88)
[2018-01-03] MEDS: WARFARIN NA 5 MG TABLET (UD) PO SCH (17:19)
[2018-01-03] MEDS: ATORVASTATIN CA 40 MG TABLET (FP) PO SCH (21:29)
[2018-01-04] MEDS: rOPINIRole HCL 0.25 MG TABLET PO SCH ×4 (06:01→18:04)
[2018-01-04] MEDS: CARBIDOPA/LEVODOPA 25/250 TABLET (FP) PO SCH ×4 (06:01→18:05)
[2018-01-04] MEDS: LOSARTAN POTASSIUM 50 MG TABLET (FP) PO SCH ×2 (06:01→10:55)
[2018-01-04] MEDS ORDERED: PT OWN MED DRAWER 7, Y5N ONE (09:50)
[2018-01-04] MEDS: CARVEDILOL 12.5 MG TABLET (FP) PO SCH (10:55)
[2018-01-04] MEDS: FLUTICASONE PROP 0.05% 16 GM NASAL SPRAY NS SCH ×2 (10:55→21:44)
[2018-01-04] MEDS: TAMSULOSIN HCL 0.4 MG CAP.ER.24H (FP) PO SCH (10:55)
[2018-01-04] MEDS: PANTOPRAZOLE 40 MG TABLET (FP) PO SCH (10:57)
--- NOTE | 2018-01-04 14:02 | PN ---
Progress Note, Physician Chief Complaint: Dysphagia HTN History of Present Illness: -Swallowing improved seen by Cardiology and neurology seen by PT, moderate assistance of 2 -family refused SNF, wants him to go home with VNS - Current Medication List Current Medications: Active Medications Atorvastatin Calcium (Lipitor -) 40 mg PO HS [facility] Last Admin: 01/03/18 21:29 Dose: 40 mg Carbidopa/Levodopa (Sinemet 25/250 -) 1 each PO 0600,1000,1400,1800 [facility] Last Admin: 01/04/18 10:56 Dose: 1 each Carvedilol (Coreg -) 12.5 mg PO BID [facility] Last Admin: 01/04/18 10:55 Dose: 12.5 mg Fluticasone Propionate (Flonase -) 1 spray NS BID [facility] Last Admin: 01/04/18 10:55 Dose: 1 spray Levofloxacin (Levaquin 500 Mg Premixed Ivpb -) 500 mg in 100 mls @ 100 mls/hr IVPB DAILY [facility] Last Admin: 01/04/18 10:54 Dose: 100 mls/hr Losartan Potassium (Cozaar -) 100 mg PO DAILY [facility] Last Admin: 01/04/18 10:55 Dose: 100 mg Pantoprazole Sodium (Protonix -) 40 mg PO DAILY [facility] Last Admin: 01/04/18 10:57 Dose: 40 mg Ropinirole HCl (Requip -) 0.5 mg PO 0600,1000,1400,1800 [facility] Last Admin: 01/04/18 10:56 Dose: 0.5 mg Tamsulosin HCl (Flomax -) 0.4 mg PO DAILY@0830 [facility] Last Admin: 01/04/18 10:55 Dose: 0.4 mg Warfarin Sodium (Coumadin -) 5 mg PO DAILY@1800 [facility] Last Admin: 01/03/18 17:19 Dose: 5 mg - Objective Vital Signs: Vital Signs Temperature 98.2 F 01/04/18 08:48 Pulse Rate 94 H 01/04/18 08:48 Respiratory Rate 18 01/04/18 09:00 Blood Pressure 150/95 01/04/18 08:48 O2 Sat by Pulse Oximetry (%) 100 01/04/18 09:00 Constitutional: Yes: Well Nourished, No Distress, Calm Cardiovascular: Yes: Regular Rate and Rhythm Respiratory: Yes: Regular Gastrointestinal: Yes: Normal Bowel Sounds Neurological: Yes: Alert, Pre-Existing Deficit Psychiatric: Yes: Alert Labs: CBC, BMP 01/02/18 09:40 01/02/18 06:20 INR, PTT INR 1.50 (0.82-1.09) H D 01/03/18 16:40 Problem List - Problems (1) Atrial fibrillation with rapid ventricular response Assessment/Plan: -seen by cardiology -no change on tele -d/c tele as per cardiology -on warfarin, INR goal 2-3 Code(s): I48.91 - UNSPECIFIED ATRIAL FIBRILLATION (2) Dysphagia Code(s): R13.10 - DYSPHAGIA, UNSPECIFIED Qualifiers: Dysphagia type: oropharyngeal phase Qualified Code(s): R13.12 - Dysphagia, oropharyngeal phase (3) Uncontrolled hypertension Code(s): I10 - ESSENTIAL (PRIMARY) HYPERTENSION (4) UTI (urinary tract infection) Assessment/Plan: - Ecoli -IV abx day 5 -ID on board Code(s): N39.0 - URINARY TRACT INFECTION, SITE NOT SPECIFIED (5) Parkinson disease Assessment/Plan: -symptoms improved post start the medication -seen by neurology -seen by swallow eval Code(s): G20 - PARKINSON'S DISEASE Assessment/Plan see problem list
--- NOTE | 2018-01-04 14:27 | PN ---
Progress Note, Physician History of Present Illness: BP control improved. Swallowing improving with initiation of Parkinsons meds. Remains in rate-controlled afib. - Current Medication List Current Medications: Active Medications Atorvastatin Calcium (Lipitor -) 40 mg PO HS [facility] Last Admin: 01/03/18 21:29 Dose: 40 mg Carbidopa/Levodopa (Sinemet 25/250 -) 1 each PO 0600,1000,1400,1800 [facility] Last Admin: 01/04/18 10:56 Dose: 1 each Carvedilol (Coreg -) 12.5 mg PO BID [facility] Last Admin: 01/04/18 10:55 Dose: 12.5 mg Fluticasone Propionate (Flonase -) 1 spray NS BID [facility] Last Admin: 01/04/18 10:55 Dose: 1 spray Levofloxacin (Levaquin 500 Mg Premixed Ivpb -) 500 mg in 100 mls @ 100 mls/hr IVPB DAILY [facility] Last Admin: 01/04/18 10:54 Dose: 100 mls/hr Losartan Potassium (Cozaar -) 100 mg PO DAILY [facility] Last Admin: 01/04/18 10:55 Dose: 100 mg Pantoprazole Sodium (Protonix -) 40 mg PO DAILY [facility] Last Admin: 01/04/18 10:57 Dose: 40 mg Ropinirole HCl (Requip -) 0.5 mg PO 0600,1000,1400,1800 [facility] Last Admin: 01/04/18 10:56 Dose: 0.5 mg Tamsulosin HCl (Flomax -) 0.4 mg PO DAILY@0830 [facility] Last Admin: 01/04/18 10:55 Dose: 0.4 mg Warfarin Sodium (Coumadin -) 5 mg PO DAILY@1800 [facility] Last Admin: 01/03/18 17:19 Dose: 5 mg - Objective Vital Signs: Vital Signs Temperature 98.2 F 01/04/18 08:48 Pulse Rate 94 H 01/04/18 08:48 Respiratory Rate 18 01/04/18 09:00 Blood Pressure 150/95 01/04/18 08:48 O2 Sat by Pulse Oximetry (%) 100 01/04/18 09:00 Constitutional: Yes: No Distress, Calm Neck: Yes: Supple Cardiovascular: Yes: Pulse Irregular Respiratory: Yes: Regular, Diminished, On Nasal O2 Gastrointestinal: Yes: Normal Bowel Sounds, Soft Edema: No Labs: CBC, BMP 01/02/18 09:40 01/02/18 06:20 INR, PTT INR 1.50 (0.82-1.09) H D 01/03/18 16:40 Problem List - Problems (1) Atrial fibrillation with rapid ventricular response Code(s): I48.91 - UNSPECIFIED ATRIAL FIBRILLATION (2) CVA (cerebral vascular accident) Code(s): I63.9 - CEREBRAL INFARCTION, UNSPECIFIED Qualifiers: Laterality of affected vessel: unspecified (3) Dysphagia Code(s): R13.10 - DYSPHAGIA, UNSPECIFIED Qualifiers: Dysphagia type: oropharyngeal phase Qualified Code(s): R13.12 - Dysphagia, oropharyngeal phase (4) Hypercholesterolemia Code(s): E78.00 - PURE HYPERCHOLESTEROLEMIA, UNSPECIFIED (5) Parkinson disease Code(s): G20 - PARKINSON'S DISEASE (6) Uncontrolled hypertension Code(s): I10 - ESSENTIAL (PRIMARY) HYPERTENSION (7) Unsteady gait Code(s): R26.81 - UNSTEADINESS ON FEET Assessment/Plan 12/30/2017 Echo: Normal biventricular size and fxn, mild KEO, mild-mod AR 1. Possible oropharyngeal dysphagia secondary to Parkinsons Disease improving 2. Hypertensive urgency improving 3. Atrial fibrillation [id number] score 5 and subtherapeutic INR 4. History of CVA with no major residual deficit 5. Hypercholestetrolemia 6. Parkinson's disease 7. Unsteady gait 8. Hematuria PLAN: 1. Dose Coumadin per INR 2-3 given elevated [id number] stroke risk 2. Increase carvedilol 25 bid, continue Losartan 100 mg once a day and Lipitor 40 qhs 3. Aspiration precautions, speech and swallow recs appreciated 4. D/c telemetry
[2018-01-04 15:08] LABS: BASO % 0.3 % (0-2.0); EOS % 14.5 % (0-4.5); HEMATOCRIT 42.4 % (35.4-49); HEMOGLOBIN 14.3 GM/dL (11.7-16.9); LYMPH % 13.9 % (8-40); MCH 30.3 pg (25.7-33.7); MCHC 33.8 g/dl (32.0-35.9); MEAN CELL VOLUME 89.7 fl (80-96); MONO % 10.5 % (3.8-10.2); NEUT % 60.8 % (42.8-82.8); PLATELET COUNT 220 K/MM3 (134-434); RBC 4.72 M/mm3 (4.00-5.60); RDW 13.7 % (11.9-15.9); WHITE BLOOD COUNT 8.1 K/mm3 (4.0-10.0)
[2018-01-04 15:21] LABS: INR 1.52 (0.82-1.09); PROTHROMBIN TIME (PATIENT) 17.2 SEC (9.98-11.88)
[2018-01-04 15:41] LABS: ALBUMIN 3.2 g/dl (3.4-5.0); ALK PHOS 110 U/L (45-117); ANION GAP 3 (8-16); BILIRUBIN,TOTAL 0.6 mg/dL (0.2-1.0); BLOOD UREA NITROGEN 23 mg/dL (7-18); CALCIUM 8.4 mg/dL (8.5-10.1); CHLORIDE 102 mmol/L (98-107); CO2 33 mmol/L (21-32); GLUCOSE,RANDOM 115 mg/dL (74-106); POTASSIUM 4.1 mmol/L (3.5-5.1); SGOT/AST 19 U/L (15-37); SGPT/ALT 16 U/L (12-78); SODIUM 138 mmol/L (136-145)
[2018-01-04] MEDS ORDERED: CARVEDILOL 12.5 MG TABLET (FP) PO ONE (16:00)
--- NOTE | 2018-01-04 16:58 | PN ---
Progress Note (short form) - Note Progress Note: covering dr reyes HIgh BP up and down given a dose of amlodipine meds adjusted per seed laboratory assistant no c/o Current Medications Atorvastatin Calcium (Lipitor -) 40 mg PO HS [facility] Last Admin: 01/03/18 21:29 Dose: 40 mg Carbidopa/Levodopa (Sinemet 25/250 -) 1 each PO 0600,1000,1400,1800 [facility] Last Admin: 01/04/18 14:48 Dose: 1 each Carvedilol (Coreg -) 25 mg PO BID [facility] Fluticasone Propionate (Flonase -) 1 spray NS BID [facility] Last Admin: 01/04/18 10:55 Dose: 1 spray Levofloxacin (Levaquin 500 Mg Premixed Ivpb -) 500 mg in 100 mls @ 100 mls/hr IVPB DAILY [facility] Last Admin: 01/04/18 10:54 Dose: 100 mls/hr Losartan Potassium (Cozaar -) 100 mg PO DAILY [facility] Last Admin: 01/04/18 10:55 Dose: 100 mg Pantoprazole Sodium (Protonix -) 40 mg PO DAILY [facility] Last Admin: 01/04/18 10:57 Dose: 40 mg Ropinirole HCl (Requip -) 0.5 mg PO 0600,1000,1400,1800 [facility] Last Admin: 01/04/18 14:47 Dose: 0.5 mg Tamsulosin HCl (Flomax -) 0.4 mg PO DAILY@0830 [facility] Last Admin: 01/04/18 10:55 Dose: 0.4 mg Warfarin Sodium (Coumadin -) 5 mg PO DAILY@1800 [facility] Last Admin: 01/03/18 17:19 Dose: 5 mg Warfarin Sodium (Coumadin -) 7.5 mg PO ONCE@1800 [facility] Stop: 01/04/18 18:01 Last Vital Signs Temp Pulse Resp BP Pulse Ox 98.8 F 79 20 198/113 100 01/04/18 14:00 01/04/18 14:00 01/04/18 14:00 01/04/18 14:00 01/04/18 09:00 alert in nad lungs clear heart reg abd soft ext no edema CBC, BMP 01/04/18 14:35 01/04/18 14:35 CBC, BMP 01/02/18 09:40 01/02/18 06:20 IMP HTN poor control r/0 orthostatic BPdrops and high BP when lying down Parkinson CKD Prerenal azotemia stable Plan- follow up BP response to med adjustment ADDENDUM- f/u BP 137/88 after extra dose of coreg
[2018-01-04] MEDS ORDERED: WARFARIN NA 7.5 MG TABLET (FP) PO ONE (18:00)
[2018-01-04] MEDS: ATORVASTATIN CA 40 MG TABLET (FP) PO SCH (21:44)
[2018-01-04] MEDS ORDERED: CARVEDILOL 25 MG TABLET (FP) PO SCH (22:00)
[2018-01-05] MEDS: rOPINIRole HCL 0.25 MG TABLET PO SCH ×4 (06:00→17:59)
[2018-01-05] MEDS: CARBIDOPA/LEVODOPA 25/250 TABLET (FP) PO SCH ×4 (06:00→17:59)
[2018-01-05] MEDS ORDERED: CARVEDILOL 25 MG TABLET (FP) PO ONE (06:24)
[2018-01-05 07:11] LABS: BASO % 0.5 % (0-2.0); EOS % 13.7 % (0-4.5); HEMATOCRIT 43.4 % (35.4-49); HEMOGLOBIN 14.6 GM/dL (11.7-16.9); MCHC 33.6 g/dl (32.0-35.9); MEAN CELL VOLUME 89.2 fl (80-96); MEAN PLT VOLUME 8.5 fl (7.5-11.1); MONO % 8.4 % (3.8-10.2); NEUT % 63.4 % (42.8-82.8); PLATELET COUNT 225 K/MM3 (134-434); RBC 4.86 M/mm3 (4.00-5.60); RDW 13.2 % (11.9-15.9); WHITE BLOOD COUNT 8.7 K/mm3 (4.0-10.0)
[2018-01-05 07:15] LABS: INR 1.44 (0.82-1.09); PROTHROMBIN TIME (PATIENT) 16.3 SEC (9.98-11.88)
[2018-01-05 07:31] LABS: CHLORIDE 102 mmol/L (98-107); POTASSIUM 3.7 mmol/L (3.5-5.1); SODIUM 138 mmol/L (136-145)
[2018-01-05 07:39] LABS: ALBUMIN 3.5 g/dl (3.4-5.0); ALK PHOS 112 U/L (45-117); ANION GAP 7 (8-16); BLOOD UREA NITROGEN 20 mg/dL (7-18); CALCIUM 8.4 mg/dL (8.5-10.1); CO2 29 mmol/L (21-32); CREATININE 0.9 mg/dL (0.7-1.3); GLUCOSE,RANDOM 102 mg/dL (74-106); SGOT/AST 16 U/L (15-37); SGPT/ALT 21 U/L (12-78); TOT PROT 7.2 g/dl (6.4-8.2)
[2018-01-05] MEDS: LOSARTAN POTASSIUM 50 MG TABLET (FP) PO SCH (09:37)
[2018-01-05] MEDS: TAMSULOSIN HCL 0.4 MG CAP.ER.24H (FP) PO SCH (09:37)
[2018-01-05] MEDS: PANTOPRAZOLE 40 MG TABLET (FP) PO SCH (09:38)
[2018-01-05] MEDS: FLUTICASONE PROP 0.05% 16 GM NASAL SPRAY NS SCH ×2 (09:38→22:47)
--- NOTE | 2018-01-05 10:27 | PN ---
Progress Note, Physician Chief Complaint: Events noted Not in distress History of Present Illness: Patient was seen and examined. Awake and alert. Chart was reviewed Denies chest pain, SOB or palpitations Intermittent dizziness Episode of hypertension early this morning - Current Medication List Current Medications: Active Medications Atorvastatin Calcium (Lipitor -) 40 mg PO HS [facility] Last Admin: 01/04/18 21:44 Dose: 40 mg Carbidopa/Levodopa (Sinemet 25/250 -) 1 each PO 0600,1000,1400,1800 [facility] Last Admin: 01/05/18 06:00 Dose: 1 each Carvedilol (Coreg -) 25 mg PO BID [facility] Last Admin: 01/04/18 21:44 Dose: 25 mg Fluticasone Propionate (Flonase -) 1 spray NS BID [facility] Last Admin: 01/05/18 09:38 Dose: 1 spray Levofloxacin (Levaquin 500 Mg Premixed Ivpb -) 500 mg in 100 mls @ 100 mls/hr IVPB DAILY [facility] Last Admin: 01/05/18 09:37 Dose: 100 mls/hr Losartan Potassium (Cozaar -) 100 mg PO DAILY [facility] Last Admin: 01/05/18 09:37 Dose: 100 mg Pantoprazole Sodium (Protonix -) 40 mg PO DAILY [facility] Last Admin: 01/05/18 09:38 Dose: 40 mg Ropinirole HCl (Requip -) 0.5 mg PO 0600,1000,1400,1800 [facility] Last Admin: 01/05/18 06:00 Dose: 0.5 mg Tamsulosin HCl (Flomax -) 0.4 mg PO DAILY@0830 [facility] Last Admin: 01/05/18 09:37 Dose: 0.4 mg Warfarin Sodium (Coumadin -) 5 mg PO DAILY@1800 [facility] Last Admin: 01/03/18 17:19 Dose: 5 mg - Objective Vital Signs: Vital Signs Temperature 98 F 01/05/18 10:00 Pulse Rate 92 H 01/05/18 10:00 Respiratory Rate 20 01/05/18 10:00 Blood Pressure 113/80 01/05/18 10:00 O2 Sat by Pulse Oximetry (%) 98 01/05/18 09:00 Eyes: Yes: PERRL HENT: Yes: Atraumatic Neck: Yes: Supple Cardiovascular: Yes: Regular Rate and Rhythm, Murmur (Soft SM), S1, S2 Respiratory: Yes: CTA Bilaterally Gastrointestinal: Yes: Normal Bowel Sounds, Soft. No: Tenderness Edema: No Additional Findings/Remarks: - Review of Systems Constitutional: denies: Chills, Fever Cardiovascular: denies: Chest Pain, Palpitations, Shortness of Breath Respiratory: denies: Cough, Hemoptysis, Orthopnea, PND, SOB, SOB on Exertion Gastrointestinal: denies: Abdominal Pain, Constipation, Diarrhea, Melena, Nausea , Rectal Bleeding, Vomiting Neurological: reports: Unsteady Gait, Weakness. denies: Dizziness, Headache, Seizure, Syncope Labs: CBC, BMP 01/05/18 06:40 01/05/18 06:40 INR, PTT INR 1.44 (0.82-1.09) H 01/05/18 06:40 Problem List - Problems (1) CVA (cerebral vascular accident) Code(s): I63.9 - CEREBRAL INFARCTION, UNSPECIFIED Qualifiers: Laterality of affected vessel: unspecified (2) Unsteady gait Code(s): R26.81 - UNSTEADINESS ON FEET (3) Hypercholesterolemia Code(s): E78.00 - PURE HYPERCHOLESTEROLEMIA, UNSPECIFIED (4) Dysphagia Code(s): R13.10 - DYSPHAGIA, UNSPECIFIED Qualifiers: Dysphagia type: oropharyngeal phase Qualified Code(s): R13.12 - Dysphagia, oropharyngeal phase (5) Parkinson disease Code(s): G20 - PARKINSON'S DISEASE (6) Uncontrolled hypertension Code(s): I10 - ESSENTIAL (PRIMARY) HYPERTENSION Assessment/Plan 1. Dysphagia due to parkinsons 2. Hypertensive urgency intermittently 3. Atrial fibrillation [id number] score probably 5 - subtherapeutic INR 4. History of CVA with no major residual deficit 5. Hypercholesterolemia 6. Parkinson's disease 7. Unsteady gait PLAN: 1. Continue Coumadin to keep INR 2-3 2. Continue Losartan. Consider restarting Carvedilol or alternative pending BP 3. Parkinsons treatment 4. Continue Atorvastatin 5. Neuro follow up Further plans are to follow Henrique Thornton MD
--- NOTE | 2018-01-05 11:14 | PN ---
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 Plan is for d/c home. REC: RD to educate family on diet and obtaining thickened liquids for home use. Pt will benefit from continued swallowing tx upon d/c.
--- NOTE | 2018-01-05 14:33 | PN ---
Progress Note, Physician History of Present Illness: Pt seen and examined at bedside. His bp has been labile. - Current Medication List Current Medications: Active Medications Atorvastatin Calcium (Lipitor -) 40 mg PO HS [facility] Last Admin: 01/04/18 21:44 Dose: 40 mg Carbidopa/Levodopa (Sinemet 25/250 -) 1 each PO 0600,1000,1400,1800 [facility] Last Admin: 01/05/18 14:28 Dose: 1 each Carvedilol (Coreg -) 25 mg PO BID [facility] Last Admin: 01/04/18 21:44 Dose: 25 mg Fluticasone Propionate (Flonase -) 1 spray NS BID [facility] Last Admin: 01/05/18 09:38 Dose: 1 spray Levofloxacin (Levaquin 500 Mg Premixed Ivpb -) 500 mg in 100 mls @ 100 mls/hr IVPB DAILY [facility] Last Admin: 01/05/18 09:37 Dose: 100 mls/hr Losartan Potassium (Cozaar -) 100 mg PO DAILY [facility] Last Admin: 01/05/18 09:37 Dose: 100 mg Pantoprazole Sodium (Protonix -) 40 mg PO DAILY [facility] Last Admin: 01/05/18 09:38 Dose: 40 mg Ropinirole HCl (Requip -) 0.5 mg PO 0600,1000,1400,1800 [facility] Last Admin: 01/05/18 14:27 Dose: 0.5 mg Tamsulosin HCl (Flomax -) 0.4 mg PO DAILY@0830 [facility] Last Admin: 01/05/18 09:37 Dose: 0.4 mg Warfarin Sodium (Coumadin -) 5 mg PO DAILY@1800 [facility] Last Admin: 01/03/18 17:19 Dose: 5 mg - Objective Vital Signs: Vital Signs Temperature 98 F 01/05/18 10:00 Pulse Rate 92 H 01/05/18 10:00 Respiratory Rate 20 01/05/18 10:00 Blood Pressure 113/80 01/05/18 10:00 O2 Sat by Pulse Oximetry (%) 98 01/05/18 09:00 Constitutional: Yes: Calm Eyes: Yes: Conjunctiva Clear HENT: Yes: Atraumatic Cardiovascular: Yes: S1, S2 Respiratory: Yes: CTA Bilaterally Gastrointestinal: Yes: Soft Genitourinary: Yes: [place] Present Musculoskeletal: Yes: Muscle Weakness Edema: No Neurological: Yes: Pre-Existing Deficit Labs: CBC, BMP 01/05/18 06:40 01/05/18 06:40 INR, PTT INR 1.44 (0.82-1.09) H 01/05/18 06:40 Problem List - Problems (1) Atrial fibrillation with rapid ventricular response Code(s): I48.91 - UNSPECIFIED ATRIAL FIBRILLATION (2) Dysphagia Code(s): R13.10 - DYSPHAGIA, UNSPECIFIED Qualifiers: Dysphagia type: oropharyngeal phase Qualified Code(s): R13.12 - Dysphagia, oropharyngeal phase (3) Hematuria Code(s): R31.9 - HEMATURIA, UNSPECIFIED (4) Poorly controlled blood pressure Code(s): I99.8 - OTHER DISORDER OF CIRCULATORY SYSTEM Assessment/Plan Current Medications Generic Name Dose Route Start Last Admin Trade Name Freq PRN Reason Stop Dose Admin Atorvastatin Calcium 40 mg 12/30/17 22:00 01/04/18 21:44 Lipitor - PO 40 mg HS [facility] Administration Carbidopa/Levodopa 1 each 01/01/18 10:00 01/05/18 14:28 Sinemet 25/250 - PO 1 each 0600,1000,1400,1800 [facility] Administration Carvedilol 25 mg 01/04/18 22:00 01/04/18 21:44 Coreg - PO 25 mg BID [facility] Administration Fluticasone Propionate 1 spray 01/02/18 10:00 01/05/18 09:38 Flonase - NS 1 spray BID [facility] Administration Levofloxacin 500 mg in 100 mls @ 100 mls/hr 12/31/17 10:00 01/05/18 09:37 Levaquin 500 Mg Premixed Ivpb - IVPB 100 mls/hr DAILY [facility] Administration Losartan Potassium 100 mg 12/30/17 11:45 01/05/18 09:37 Cozaar - PO 100 mg DAILY [facility] Administration Pantoprazole Sodium 40 mg 12/31/17 10:03 01/05/18 09:38 Protonix - PO 40 mg DAILY [facility] Administration Ropinirole HCl 0.5 mg 01/01/18 10:00 01/05/18 14:27 Requip - PO 0.5 mg 0600,1000,1400,1800 [facility] Administration Tamsulosin HCl 0.4 mg 12/31/17 10:06 01/05/18 09:37 Flomax - PO 0.4 mg DAILY@0830 [facility] Administration Warfarin Sodium 5 mg 01/02/18 18:00 01/03/18 17:19 Coumadin - PO 5 mg DAILY@1800 [facility] Administration Impression 1. hematuria 2. htn 3. parkinsons 4. dysphagia 5. a-fib 6. cva Plan - cont coreg at 25 bid - cont losartan - start norvasc - renal function is stable - will follow Dr Bermudez
[2018-01-05] MEDS: amLODIPine BESYLATE 5 MG TABLET (FP) PO SCH (14:48)
--- NOTE | 2018-01-05 15:16 | PN ---
Progress Note, Physician Chief Complaint: AWAKE CHART AND NOTES REVIEWED DENIES CHEST PAIN OR SOB - Current Medication List Current Medications: Active Medications Amlodipine Besylate (Norvasc -) 5 mg PO DAILY [facility] Last Admin: 01/05/18 14:48 Dose: 5 mg Atorvastatin Calcium (Lipitor -) 40 mg PO HS [facility] Last Admin: 01/04/18 21:44 Dose: 40 mg Carbidopa/Levodopa (Sinemet 25/250 -) 1 each PO 0600,1000,1400,1800 [facility] Last Admin: 01/05/18 14:28 Dose: 1 each Carvedilol (Coreg -) 25 mg PO BID [facility] Last Admin: 01/04/18 21:44 Dose: 25 mg Fluticasone Propionate (Flonase -) 1 spray NS BID [facility] Last Admin: 01/05/18 09:38 Dose: 1 spray Levofloxacin (Levaquin 500 Mg Premixed Ivpb -) 500 mg in 100 mls @ 100 mls/hr IVPB DAILY [facility] Last Admin: 01/05/18 09:37 Dose: 100 mls/hr Losartan Potassium (Cozaar -) 100 mg PO DAILY [facility] Last Admin: 01/05/18 09:37 Dose: 100 mg Pantoprazole Sodium (Protonix -) 40 mg PO DAILY [facility] Last Admin: 01/05/18 09:38 Dose: 40 mg Ropinirole HCl (Requip -) 0.5 mg PO 0600,1000,1400,1800 [facility] Last Admin: 01/05/18 14:27 Dose: 0.5 mg Tamsulosin HCl (Flomax -) 0.4 mg PO DAILY@0830 [facility] Last Admin: 01/05/18 09:37 Dose: 0.4 mg Warfarin Sodium (Coumadin -) 5 mg PO DAILY@1800 [facility] Last Admin: 01/03/18 17:19 Dose: 5 mg - Objective Vital Signs: Vital Signs Temperature 98 F 01/05/18 14:00 Pulse Rate 80 01/05/18 14:00 Respiratory Rate 18 01/05/18 14:00 Blood Pressure 158/99 01/05/18 14:00 O2 Sat by Pulse Oximetry (%) 98 01/05/18 09:00 Constitutional: Yes: Mild Distress Eyes: Yes: WNL HENT: Yes: WNL Neck: Yes: WNL Cardiovascular: Yes: Pulse Irregular Respiratory: Yes: WNL Gastrointestinal: Yes: WNL Genitourinary: Yes: [place] Present Musculoskeletal: Yes: Muscle Weakness Extremities: Yes: WNL Edema: No Peripheral Pulses WNL: Yes Integumentary: Yes: WNL Wound/Incision: Yes: Clean/Dry Neurological: Yes: Pre-Existing Deficit ...Motor Strength: LLE, RLE Psychiatric: Yes: Other Labs: CBC, BMP 01/05/18 06:40 01/05/18 06:40 INR, PTT INR 1.44 (0.82-1.09) H 01/05/18 06:40 Problem List - Problems (1) CVA (cerebral vascular accident) Code(s): I63.9 - CEREBRAL INFARCTION, UNSPECIFIED Qualifiers: Laterality of affected vessel: unspecified (2) DVT prophylaxis Code(s): ART2875 - (3) Dysphagia Code(s): R13.10 - DYSPHAGIA, UNSPECIFIED Qualifiers: Dysphagia type: oropharyngeal phase Qualified Code(s): R13.12 - Dysphagia, oropharyngeal phase (4) Hypercholesterolemia Code(s): E78.00 - PURE HYPERCHOLESTEROLEMIA, UNSPECIFIED (5) Parkinson disease Code(s): G20 - PARKINSON'S DISEASE (6) Poorly controlled blood pressure Code(s): I99.8 - OTHER DISORDER OF CIRCULATORY SYSTEM (7) Uncontrolled hypertension Code(s): I10 - ESSENTIAL (PRIMARY) HYPERTENSION (8) Unsteady gait Code(s): R26.81 - UNSTEADINESS ON FEET Assessment/Plan DC [place] [facility] RESTARTED CHECK INR IN AM PT EVAL REFUSING SNF POSSIBLE DC HOME IN AM WITH SNF SERVICE
[2018-01-05] MEDS: WARFARIN NA 5 MG TABLET (UD) PO SCH (18:10)
[2018-01-05] MEDS ORDERED: NITROGLYCERIN 2% OINTMENT - 1GM PACKET TD ONE ×2 (20:42→20:46)
[2018-01-05] MEDS: CARVEDILOL 25 MG TABLET (FP) PO SCH ×2 (20:57→21:36)
--- NOTE | 2018-01-05 21:01 | PN ---
Progress Note (short form) - Note Progress Note: NEUROLOGY FOLLOW-UP: Mow 8:45. Events reviewed, Patient examined and discussed with RN. Patient has been much improved with decreased tremor, able to feed himself and swallow. Carvedilol was D/C'ed by cardiology. BP was 160/90 this AM. However, Pt. called RN complaining of headache, dizziness, nausea, and drive heaves around 8:30. BP is 230/160 on multiple determinations. Pt. is awake, alert. Festinating speech. Full EOM's with a few beats of Nystagmus on Right gaze. Less bradykinetic. Moving well. Mod cogwheeling. No FTN dystaxia. IMP: Hypertensive encephalopathy with [place], Dizziness and Nausea. Parkinson's disease with dysphagia- much improved on current regimen. SUGGEST: Nitropaste 1 ln. stat. Resume carvedilol (or IV labetalol). Drs. Renner and Dorie called. CT of head if dizziness persists with normalization of BP. Thank you very much, Valentino Wheeler MD
[2018-01-05] MEDS ORDERED: PT OWN MED DRAWER 7, Y5N ONE (21:38)
[2018-01-05] MEDS ORDERED: LABETALOL HCL 5 MG/1 ML (100MG/20 ML VIAL) IVPUSH ONE (21:45)
[2018-01-05] MEDS: ATORVASTATIN CA 40 MG TABLET (FP) PO SCH (22:48)
[2018-01-06] MEDS ORDERED: PT OWN MED DRAWER 7, Y5N ONE ×3 (05:06→14:56)
[2018-01-06] MEDS ORDERED: LABETALOL HCL 5 MG/1 ML (100MG/20 ML VIAL) IVPUSH ONE ×3 (05:52→20:15)
[2018-01-06] MEDS: rOPINIRole HCL 0.25 MG TABLET PO SCH ×4 (05:54→18:14)
[2018-01-06] MEDS: CARBIDOPA/LEVODOPA 25/250 TABLET (FP) PO SCH ×4 (05:55→18:14)
[2018-01-06 07:36] LABS: INR 1.74 (0.82-1.09); PROTHROMBIN TIME (PATIENT) 19.7 SEC (9.98-11.88)
--- NOTE | 2018-01-06 08:31 | PN ---
Progress Note, Physician History of Present Illness: Labile BP. Swallowing improving with initiation of Parkinsons meds. Remains in rate-controlled afib. - Current Medication List Current Medications: Active Medications Amlodipine Besylate (Norvasc -) 5 mg PO DAILY [facility] Last Admin: 01/05/18 14:48 Dose: 5 mg Atorvastatin Calcium (Lipitor -) 40 mg PO HS [facility] Last Admin: 01/05/18 22:48 Dose: 40 mg Carbidopa/Levodopa (Sinemet 25/250 -) 1 each PO 0600,1000,1400,1800 [facility] Last Admin: 01/06/18 05:55 Dose: 1 each Carvedilol (Coreg -) 25 mg PO BID [facility] Last Admin: 01/05/18 21:36 Dose: Not Given Fluticasone Propionate (Flonase -) 1 spray NS BID [facility] Last Admin: 01/05/18 22:47 Dose: 1 spray Levofloxacin (Levaquin 500 Mg Premixed Ivpb -) 500 mg in 100 mls @ 100 mls/hr IVPB DAILY [facility] Last Admin: 01/05/18 09:37 Dose: 100 mls/hr Losartan Potassium (Cozaar -) 100 mg PO DAILY [facility] Last Admin: 01/05/18 09:37 Dose: 100 mg Pantoprazole Sodium (Protonix -) 40 mg PO DAILY [facility] Last Admin: 01/05/18 09:38 Dose: 40 mg Ropinirole HCl (Requip -) 0.5 mg PO 0600,1000,1400,1800 [facility] Last Admin: 01/06/18 05:54 Dose: 0.5 mg Tamsulosin HCl (Flomax -) 0.4 mg PO DAILY@0830 [facility] Last Admin: 01/05/18 09:37 Dose: 0.4 mg Warfarin Sodium (Coumadin -) 5 mg PO DAILY@1800 [facility] Last Admin: 01/05/18 18:10 Dose: 5 mg - Objective Vital Signs: Vital Signs Temperature 98.4 F 01/06/18 05:00 Pulse Rate 82 01/06/18 06:40 Respiratory Rate 18 01/06/18 05:00 Blood Pressure 179/109 01/06/18 06:40 O2 Sat by Pulse Oximetry (%) 100 01/05/18 21:00 Constitutional: Yes: No Distress, Calm Neck: Yes: Supple Cardiovascular: Yes: Pulse Irregular Respiratory: Yes: Regular, Diminished Gastrointestinal: Yes: Normal Bowel Sounds, Soft Edema: No Labs: CBC, BMP 01/05/18 06:40 01/05/18 06:40 INR, PTT INR 1.74 (0.82-1.09) H 01/06/18 06:08 Problem List - Problems (1) Atrial fibrillation with rapid ventricular response Code(s): I48.91 - UNSPECIFIED ATRIAL FIBRILLATION (2) CVA (cerebral vascular accident) Code(s): I63.9 - CEREBRAL INFARCTION, UNSPECIFIED Qualifiers: Laterality of affected vessel: unspecified (3) Dysphagia Code(s): R13.10 - DYSPHAGIA, UNSPECIFIED Qualifiers: Dysphagia type: oropharyngeal phase Qualified Code(s): R13.12 - Dysphagia, oropharyngeal phase (4) Hypercholesterolemia Code(s): E78.00 - PURE HYPERCHOLESTEROLEMIA, UNSPECIFIED (5) Parkinson disease Code(s): G20 - PARKINSON'S DISEASE (6) Uncontrolled hypertension Code(s): I10 - ESSENTIAL (PRIMARY) HYPERTENSION (7) Unsteady gait Code(s): R26.81 - UNSTEADINESS ON FEET Assessment/Plan 12/30/2017 Echo: Normal biventricular size and fxn, mild KEO, mild-mod AR 1. Possible oropharyngeal dysphagia secondary to Parkinsons Disease improving 2. Hypertensive urgency with labile BP 3. Atrial fibrillation [id number] score 5 and subtherapeutic INR 4. History of CVA with no major residual deficit 5. Hypercholestetrolemia 6. Parkinson's disease 7. Unsteady gait 8. Hematuria PLAN: 1. Dose Coumadin per INR 2-3 given elevated [id number] stroke risk 2. Continue carvedilol 25 bid, change Losartan 100 mg to Diovan 320 once a day, Norvasc 5 qd and Lipitor 40 qhs 3. Aspiration precautions, speech and swallow recs appreciated 4. D/c telemetry
[2018-01-06] MEDS: TAMSULOSIN HCL 0.4 MG CAP.ER.24H (FP) PO SCH (09:10)
[2018-01-06] MEDS: CARVEDILOL 25 MG TABLET (FP) PO SCH ×2 (09:10→21:29)
[2018-01-06] MEDS: amLODIPine BESYLATE 5 MG TABLET (FP) PO SCH (09:10)
[2018-01-06] MEDS: PANTOPRAZOLE 40 MG TABLET (FP) PO SCH (09:10)
[2018-01-06] MEDS: FLUTICASONE PROP 0.05% 16 GM NASAL SPRAY NS SCH ×2 (09:56→21:30)
[2018-01-06] MEDS ORDERED: VALSARTAN 160 MG TABLET (UD) PO SCH (10:00)
--- NOTE | 2018-01-06 10:41 | PN ---
Progress Note, KENNEL HELPER - Note Progress Note: CT head 01/05/18-Left cerebellum/left frontal areas suggestive if acute/subacute infarcts. Selected Entries 01/05/18 01/05/18 01/05/18 02:00 06:00 10:00 Temperature 97.1 F L 97.5 F L 98 F Blood Pressure 183/122 192/129 113/80 01/05/18 01/05/18 01/05/18 14:00 17:00 19:30 Temperature 98 F 99.0 F 98.2 F Blood Pressure 158/99 162/99 138/73 01/05/18 01/05/18 01/05/18 20:30 21:00 21:45 Temperature Blood Pressure 232/129 220/118 175/111 01/05/18 01/06/18 01/06/18 22:15 02:00 05:00 Temperature 97.6 F 98.4 F Blood Pressure 160/109 155/105 162/99 01/06/18 01/06/18 06:00 06:40 Temperature Blood Pressure 198/114 179/109 Laboratory Tests 01/05/18 06:40 WBC 8.7 Speech is rapid,dysfluent and imprecise with poor (-) intelligibility per machine maintenance supervisor. Pt is oriented, language intact. Pt reports change in speech today, coughing while eating, dizziness,headache. Pt is on puree/nectar thick liquid. Remind pt to swallow HARD,TWICE, per bite/sip. Scrupulous mouth care. Monitor for increasing coughing, congestion, fever spikes. Follow-up by neurology.
--- NOTE | 2018-01-06 15:40 | PN ---
Progress Note (short form) - Note Progress Note: Resting in NAD. No CP or SOB. Apparently swallowing is improving. Intake & Output 01/03/18 01/04/18 01/05/18 01/06/18 23:59 23:59 23:59 23:59 Intake Total 260 280 460 350 Output Total 1000 1700 950 Balance -740 -1420 -490 350 Last Vital Signs Temp Pulse Resp BP Pulse Ox 97.5 F L 80 18 175/105 97 01/06/18 14:00 01/06/18 14:00 01/06/18 14:00 01/06/18 14:00 01/06/18 09:00 Active Medications Amlodipine Besylate (Norvasc -) 5 mg PO DAILY [facility] Last Admin: 01/06/18 09:10 Dose: 5 mg Atorvastatin Calcium (Lipitor -) 40 mg PO HS [facility] Last Admin: 01/05/18 22:48 Dose: 40 mg Carbidopa/Levodopa (Sinemet 25/250 -) 1 each PO 0600,1000,1400,1800 [facility] Last Admin: 01/06/18 14:31 Dose: 1 each Carvedilol (Coreg -) 25 mg PO BID [facility] Last Admin: 01/06/18 09:10 Dose: 25 mg Fluticasone Propionate (Flonase -) 1 spray NS BID [facility] Last Admin: 01/06/18 09:56 Dose: 1 spray Levofloxacin (Levaquin 500 Mg Premixed Ivpb -) 500 mg in 100 mls @ 100 mls/hr IVPB DAILY [facility] Last Admin: 01/06/18 09:10 Dose: 100 mls/hr Pantoprazole Sodium (Protonix -) 40 mg PO DAILY [facility] Last Admin: 01/06/18 09:10 Dose: 40 mg Ropinirole HCl (Requip -) 0.5 mg PO 0600,1000,1400,1800 [facility] Last Admin: 01/06/18 14:31 Dose: 0.5 mg Tamsulosin HCl (Flomax -) 0.4 mg PO DAILY@0830 [facility] Last Admin: 01/06/18 09:10 Dose: 0.4 mg Valsartan (Diovan -) 320 mg PO DAILY [facility] Last Admin: 01/06/18 09:10 Dose: 320 mg Warfarin Sodium (Coumadin -) 5 mg PO DAILY@1800 [facility] Last Admin: 01/05/18 18:10 Dose: 5 mg Gen: NAD at rest Heart: RRR Lung: decreased breath sounds at the bases Abd: soft, nontender Ext: no edema Laboratory Results - last 24 hr 01/06/18 06:08 PT with INR 19.70 H INR 1.74 H A/P Hypertensive Urgency UTI Dysphagia Parkinsons h/o CVA Atrial Fibrillation Lung Nodule - Aspiration precautions - Levaquin - O2 as needed - rate controlled - continue anticoagulation - outpatient followup of lung nodule - Parkinsons meds Dr Soliman Problem List - Problems (1) Dysphagia Code(s): R13.10 - DYSPHAGIA, UNSPECIFIED Qualifiers: Dysphagia type: oropharyngeal phase Qualified Code(s): R13.12 - Dysphagia, oropharyngeal phase (2) Hypercholesterolemia Code(s): E78.00 - PURE HYPERCHOLESTEROLEMIA, UNSPECIFIED (3) Parkinson disease Code(s): G20 - PARKINSON'S DISEASE (4) Poorly controlled blood pressure Code(s): I99.8 - OTHER DISORDER OF CIRCULATORY SYSTEM
--- NOTE | 2018-01-06 16:01 | PN ---
Progress Note, Physician History of Present Illness: Pt seen and examined at bedside. His blood pressure remains labile. - Current Medication List Current Medications: Active Medications Amlodipine Besylate (Norvasc -) 5 mg PO DAILY [facility] Last Admin: 01/06/18 09:10 Dose: 5 mg Atorvastatin Calcium (Lipitor -) 40 mg PO HS [facility] Last Admin: 01/05/18 22:48 Dose: 40 mg Carbidopa/Levodopa (Sinemet 25/250 -) 1 each PO 0600,1000,1400,1800 [facility] Last Admin: 01/06/18 14:31 Dose: 1 each Carvedilol (Coreg -) 25 mg PO BID [facility] Last Admin: 01/06/18 09:10 Dose: 25 mg Fluticasone Propionate (Flonase -) 1 spray NS BID [facility] Last Admin: 01/06/18 09:56 Dose: 1 spray Levofloxacin (Levaquin 500 Mg Premixed Ivpb -) 500 mg in 100 mls @ 100 mls/hr IVPB DAILY [facility] Last Admin: 01/06/18 09:10 Dose: 100 mls/hr Pantoprazole Sodium (Protonix -) 40 mg PO DAILY [facility] Last Admin: 01/06/18 09:10 Dose: 40 mg Ropinirole HCl (Requip -) 0.5 mg PO 0600,1000,1400,1800 [facility] Last Admin: 01/06/18 14:31 Dose: 0.5 mg Tamsulosin HCl (Flomax -) 0.4 mg PO DAILY@0830 [facility] Last Admin: 01/06/18 09:10 Dose: 0.4 mg Valsartan (Diovan -) 320 mg PO DAILY [facility] Last Admin: 01/06/18 09:10 Dose: 320 mg Warfarin Sodium (Coumadin -) 5 mg PO DAILY@1800 [facility] Last Admin: 01/05/18 18:10 Dose: 5 mg - Objective Vital Signs: Vital Signs Temperature 97.5 F L 01/06/18 14:00 Pulse Rate 80 01/06/18 14:00 Respiratory Rate 18 01/06/18 14:00 Blood Pressure 175/105 01/06/18 14:00 O2 Sat by Pulse Oximetry (%) 97 01/06/18 09:00 Constitutional: Yes: Calm Eyes: Yes: Conjunctiva Clear HENT: Yes: Atraumatic Neck: Yes: Supple Cardiovascular: Yes: S1, S2 Respiratory: Yes: On Nasal O2 Gastrointestinal: Yes: Soft Genitourinary: Yes: Incontinence Musculoskeletal: Yes: Muscle Weakness Edema: No Neurological: Yes: Pre-Existing Deficit Labs: CBC, BMP 01/05/18 06:40 01/05/18 06:40 INR, PTT INR 1.74 (0.82-1.09) H 01/06/18 06:08 Problem List - Problems (1) Atrial fibrillation with rapid ventricular response Code(s): I48.91 - UNSPECIFIED ATRIAL FIBRILLATION (2) Dysphagia Code(s): R13.10 - DYSPHAGIA, UNSPECIFIED Qualifiers: Dysphagia type: oropharyngeal phase Qualified Code(s): R13.12 - Dysphagia, oropharyngeal phase (3) Hematuria Code(s): R31.9 - HEMATURIA, UNSPECIFIED (4) Poorly controlled blood pressure Code(s): I99.8 - OTHER DISORDER OF CIRCULATORY SYSTEM Assessment/Plan Current Medications Generic Name Dose Route Start Last Admin Trade Name Freq PRN Reason Stop Dose Admin Amlodipine Besylate 5 mg 01/05/18 14:45 01/06/18 09:10 Norvasc - PO 5 mg DAILY [facility] Administration Atorvastatin Calcium 40 mg 12/30/17 22:00 01/05/18 22:48 Lipitor - PO 40 mg HS [facility] Administration Carbidopa/Levodopa 1 each 01/01/18 10:00 01/06/18 14:31 Sinemet 25/250 - PO 1 each 0600,1000,1400,1800 [facility] Administration Carvedilol 25 mg 01/05/18 22:00 01/06/18 09:10 Coreg - PO 25 mg BID [facility] Administration Fluticasone Propionate 1 spray 01/02/18 10:00 01/06/18 09:56 Flonase - NS 1 spray BID [facility] Administration Levofloxacin 500 mg in 100 mls @ 100 mls/hr 12/31/17 10:00 01/06/18 09:10 Levaquin 500 Mg Premixed Ivpb - IVPB 100 mls/hr DAILY [facility] Administration Pantoprazole Sodium 40 mg 12/31/17 10:03 01/06/18 09:10 Protonix - PO 40 mg DAILY [facility] Administration Ropinirole HCl 0.5 mg 01/01/18 10:00 01/06/18 14:31 Requip - PO 0.5 mg 0600,1000,1400,1800 [facility] Administration Tamsulosin HCl 0.4 mg 12/31/17 10:06 01/06/18 09:10 Flomax - PO 0.4 mg DAILY@0830 [facility] Administration Valsartan 320 mg 01/06/18 10:00 01/06/18 09:10 Diovan - PO 320 mg DAILY [facility] Administration Warfarin Sodium 5 mg 01/02/18 18:00 01/05/18 18:10 Coumadin - PO 5 mg DAILY@1800 [facility] Administration Impression 1. hematuria 2. htn 3. parkinsons 4. dysphagia 5. a-fib 6. cva Plan - bp remains labile - cont coreg bid, cont losartan - norvasc started yesterday, titrate to 10 mg as needed - cardio input appreciated - renal function is stable - will follow Dr Bermudez
--- NOTE | 2018-01-06 16:20 | PN ---
Progress Note, Physician Chief Complaint: TRANSFERRED TO ICU AWAKE CONFUSED BP ELEVATED - Current Medication List Current Medications: Active Medications Amlodipine Besylate (Norvasc -) 5 mg PO DAILY [facility] Last Admin: 01/06/18 09:10 Dose: 5 mg Atorvastatin Calcium (Lipitor -) 40 mg PO HS [facility] Last Admin: 01/05/18 22:48 Dose: 40 mg Carbidopa/Levodopa (Sinemet 25/250 -) 1 each PO 0600,1000,1400,1800 [facility] Last Admin: 01/06/18 14:31 Dose: 1 each Carvedilol (Coreg -) 25 mg PO BID [facility] Last Admin: 01/06/18 09:10 Dose: 25 mg Fluticasone Propionate (Flonase -) 1 spray NS BID [facility] Last Admin: 01/06/18 09:56 Dose: 1 spray Levofloxacin (Levaquin 500 Mg Premixed Ivpb -) 500 mg in 100 mls @ 100 mls/hr IVPB DAILY [facility] Last Admin: 01/06/18 09:10 Dose: 100 mls/hr Pantoprazole Sodium (Protonix -) 40 mg PO DAILY [facility] Last Admin: 01/06/18 09:10 Dose: 40 mg Ropinirole HCl (Requip -) 0.5 mg PO 0600,1000,1400,1800 [facility] Last Admin: 01/06/18 14:31 Dose: 0.5 mg Tamsulosin HCl (Flomax -) 0.4 mg PO DAILY@0830 [facility] Last Admin: 01/06/18 09:10 Dose: 0.4 mg Valsartan (Diovan -) 320 mg PO DAILY [facility] Last Admin: 01/06/18 09:10 Dose: 320 mg Warfarin Sodium (Coumadin -) 5 mg PO DAILY@1800 [facility] Last Admin: 01/05/18 18:10 Dose: 5 mg - Objective Vital Signs: Vital Signs Temperature 97.5 F L 01/06/18 14:00 Pulse Rate 80 01/06/18 14:00 Respiratory Rate 18 01/06/18 14:00 Blood Pressure 175/105 01/06/18 14:00 O2 Sat by Pulse Oximetry (%) 97 01/06/18 09:00 Constitutional: Yes: Moderate Distress Eyes: Yes: WNL HENT: Yes: WNL Neck: Yes: WNL Cardiovascular: Yes: Pulse Irregular Respiratory: Yes: WNL Gastrointestinal: Yes: WNL Genitourinary: Yes: [place] Present Musculoskeletal: Yes: Muscle Weakness Extremities: Yes: WNL Edema: No Peripheral Pulses WNL: Yes Integumentary: Yes: WNL Wound/Incision: Yes: Clean/Dry Neurological: Yes: Confusion ...Motor Strength: LLE, RLE Psychiatric: Yes: Other Labs: CBC, BMP 01/05/18 06:40 01/05/18 06:40 INR, PTT INR 1.74 (0.82-1.09) H 01/06/18 06:08 Problem List - Problems (1) CVA (cerebral vascular accident) Code(s): I63.9 - CEREBRAL INFARCTION, UNSPECIFIED Qualifiers: Laterality of affected vessel: unspecified (2) DVT prophylaxis Code(s): [id number] - (3) Dysphagia Code(s): R13.10 - DYSPHAGIA, UNSPECIFIED Qualifiers: Dysphagia type: oropharyngeal phase Qualified Code(s): R13.12 - Dysphagia, oropharyngeal phase (4) Hypercholesterolemia Code(s): E78.00 - PURE HYPERCHOLESTEROLEMIA, UNSPECIFIED (5) Parkinson disease Code(s): G20 - PARKINSON'S DISEASE (6) Poorly controlled blood pressure Code(s): I99.8 - OTHER DISORDER OF CIRCULATORY SYSTEM (7) Uncontrolled hypertension Code(s): I10 - ESSENTIAL (PRIMARY) HYPERTENSION (8) Unsteady gait Code(s): R26.81 - UNSTEADINESS ON FEET Assessment/Plan NORVASC INCREASED TO 10MG HYDRALAZINE ADDED NEURO EVAL APPRECIATED ICU TEAM TO MONITOR BP MRI BRAIN ORDERED CT HEAD SHOWS DENSE AREA STOP COUMADIN FOR NOW KEPPRA 500MG BID FOR SEIZURE PRECAUTIONS NEUROCHECKS SEIZURE PRECAUTIONS
--- NOTE | 2018-01-06 16:53 | CONSULT ---
Consultation: Update 2: BP 190/20; Labetolol 10mg administered; spoke with Dr. Blake and Dr. Renner - Discontinued Norvasc and added Procardia XL 60mg qDaily --Will have more long-term control due to dysautonomia from establish parkinson's disease ADDENDUM: Pt pressure 178/112's; being first 24hr permissive HTN up to 180/ 110 permissible --Will give Labetolol 10mg for slight relief of diastolic pressures into target range --Monitor BP; continue neuro checks ICU Resident Note HISTORY OF PRESENT ILLNESS: 77yo M seen with Parkinsons disease, labile BP, and previous history of CVA ( admitted to [facility] in the past) without any residual deficits, atrial fibrillation on chronic anticoagulation with Warfarin, HTN, and HLD who was originally brought to the hospital for weakness and loss of appetite due to increased difficulty swallowing. In recent events, pt had increased dizziness today and was sent to CT scan which resulted in a 4cm non-hemorrhagic infarct of the L cerebellum and a new L small area of hypodensity in L frontral region. PMD was made aware and had pt transferred to ICU monitoring. Currently pt is slightly confused despite being oriented x3. He reports still having dizziness, however less than he had previously had it. Pt also notes a slight L frontal headache that does not have any exacerbating factors. PHYSICAL EXAMINATION Vital Signs 01/06/18 14:00 Temperature 97.5 F L Pulse Rate 80 Respiratory 18 Rate Blood Pressure 175/105 O2 Sat by Pulse Oximetry (%) GENERAL: NAD, alert, seems slightly confused however is orientedx3 HEENT: Leftwards nystagmus with ocular movements to pt's left, CHET, sclera anicteric, No JVD LUNGS: Diminished bibasilar breath sounds. No wheezing, rales, or rhonchi noted. No accessory muscle use HEART: Irregularly irregular rhythm with normal rate currently, normal S1 and S2 without murmur appreciated ABDOMEN: Soft, NT/ND, normoactive bowel sounds, no guarding, no rebound. No hepatomegaly EXTREMITIES: DP 2+ pulses, no edema NEUROLOGICAL: Resting tremor noted. Left-beating nystagmus with L horizontal eye gaze. Mild dysmetria with [id number] test. Laboratory Results - last 24 hr 01/06/18 06:08 PT with INR 19.70 H INR 1.74 H Active Medications Generic Name Dose Route Start Last Admin Trade Name Freq PRN Reason Stop Dose Admin Amlodipine Besylate 5 mg 01/05/18 14:45 01/06/18 09:10 Norvasc - PO 5 mg DAILY [facility] Administration Atorvastatin Calcium 40 mg 12/30/17 22:00 01/05/18 22:48 Lipitor - PO 40 mg HS [facility] Administration Carbidopa/Levodopa 1 each 01/01/18 10:00 01/06/18 14:31 Sinemet 25/250 - PO 1 each 0600,1000,1400,1800 [facility] Administration Carvedilol 25 mg 01/05/18 22:00 01/06/18 09:10 Coreg - PO 25 mg BID [facility] Administration Chlorhexidine Gluconate 1 applic 01/06/18 22:00 Hibiclens For Decolonization - TP HS [facility] Fluticasone Propionate 1 spray 01/02/18 10:00 01/06/18 09:56 Flonase - NS 1 spray BID [facility] Administration Levofloxacin 500 mg in 100 mls @ 100 mls/hr 12/31/17 10:00 01/06/18 09:10 Levaquin 500 Mg Premixed Ivpb - IVPB 100 mls/hr DAILY [facility] Administration Levetiracetam 500 mg 01/06/18 22:00 Keppra - PO BID [facility] Mupirocin 1 applic 01/06/18 22:00 Bactroban Ointment (For Decolonization) - NS 01/11/18 21:59 BID [facility] Pantoprazole Sodium 40 mg 12/31/17 10:03 01/06/18 09:10 Protonix - PO 40 mg DAILY [facility] Administration Ropinirole HCl 0.5 mg 01/01/18 10:00 01/06/18 14:31 Requip - PO 0.5 mg 0600,1000,1400,1800 [facility] Administration Tamsulosin HCl 0.4 mg 12/31/17 10:06 01/06/18 09:10 Flomax - PO 0.4 mg DAILY@0830 [facility] Administration Valsartan 320 mg 01/06/18 10:00 01/06/18 09:10 Diovan - PO 320 mg DAILY [facility] Administration ASSESSMENT/PLAN: Neuro: Neurology consult: Dr. Blake --Cerebellar infarct --CT scan showing 4cm hypodensity --Pt already on Lipitor 40mg PO HS --BP control with target of <180/110 as goal for first 24hrs --Seizure prophylaxis with Keppra 500mg BID PO --Neuro checks --HOB elevated --Parkinson's Disease --Continuing Sinemet 25/250 currently --Requip 0.5mg QID Cardiac: Cardiology Consult: Dr. Renner --Hypertensive emergency --Norvasc 5mg qDaily; can titrate to 10mg qDaily --Diovan 320mg PO qDaily -- --Atrial fibrillation with RVR --Coreg 25mg BID PO --[id number] --Holding Coumadin right now due to risk of hemorrhagic conversion of large ischemic area stroke (>1cm) Genitourinary: --UTI --Continue Levaquin --BPH --Continue Flomax 0.4mg qDaily Case discussed with Dr. Cao Dispo: Continue ICU monitoring CCU Time: 36min Valentino Davalos DO - IM PGY-1 Visit type - Emergency Visit Emergency Visit: No - New Patient This patient is new to me today: Yes Date on this admission: 01/07/18 - Critical Care Critical Care patient: Yes Total Critical Care Time (in minutes): 36 Critical Care Statement: The care of this patient involved high complexity decision making to prevent further life threatening deterioration of the patient 's condition and/or to evaluate & treat vital organ system(s) failure or risk of failure.
[2018-01-06] MEDS ORDERED: LABETALOL HCL 5 MG/1 ML (100MG/20 ML VIAL) ONE (18:10)
[2018-01-06] MEDS ORDERED: ACETAMINOPHEN 325 MG TABLET (FP) ONE (19:57)
[2018-01-06] MEDS ORDERED: ACETAMINOPHEN 325 MG TABLET (FP) PO ONE (20:15)
--- NOTE | 2018-01-06 20:35 | PN ---
Progress Note (short form) - Note Progress Note: NEUROLOGY FOLLOW-UP: Events reviewed and discussed with ICU residents. Pt examined with family at the bedside. Please review last nights note regarding new onset of dizziness, nauseas and systolic hypertension. CT this AM (reviewed): Indeed confirms a 3 cm, non-hemorrhagic left cerebellar infarct. Now: Patient notes decreased dizziness unless he turns his head. Nausea has resolved. New c/o left supraorbital headache. BP still 190/130. Dr. Renner aware and adding procardia. Exam: Awake, alert. Well-oriented. Festinating speech. Conjugate left-beating nystagmus on left gaze. + Rest tremor. + cogwheeling. Minimal left FTN dystaxia. IMP: New left cerebellar CVA Parkinson's disease-improved on meds. SUGGEST: Maintain BP < 140/90 Continue Parkinson's meds. Mobilize OO Bed to chair and PT eval and Rx as soon as BP is stabilized. Thank you very much, Valentino Blake MD
[2018-01-06] MEDS: NIFEdipine E.R 60 MG TABLET (UD) PO SCH (20:41)
[2018-01-06] MEDS: MUPIROCIN 2% TOPICAL OINTMENT FOR DECOLONIZATION NS SCH (21:28)
[2018-01-06] MEDS: CHLORHEXIDINE GLUCONATE 4% CLEANSER FOR DECOLONIZATION TP SCH (21:29)
[2018-01-06] MEDS: ATORVASTATIN CA 40 MG TABLET (FP) PO SCH (21:29)
[2018-01-06] MEDS: levETIRAcetam 500 MG TABLET (FP) PO SCH (21:29)
[2018-01-07] MEDS: rOPINIRole HCL 0.25 MG TABLET PO SCH ×4 (05:15→18:50)
[2018-01-07] MEDS: CARBIDOPA/LEVODOPA 25/250 TABLET (FP) PO SCH ×4 (05:15→18:50)
[2018-01-07 06:29] LABS: HEMATOCRIT 43.5 % (35.4-49); HEMOGLOBIN 14.7 GM/dL (11.7-16.9); MCH 30.1 pg (25.7-33.7); MCHC 33.7 g/dl (32.0-35.9); MEAN CELL VOLUME 89.3 fl (80-96); MEAN PLT VOLUME 8.4 fl (7.5-11.1); PLATELET COUNT 203 K/MM3 (134-434); RBC 4.87 M/mm3 (4.00-5.60); RDW 13.8 % (11.9-15.9); WHITE BLOOD COUNT 8.5 K/mm3 (4.0-10.0)
[2018-01-07 06:41] LABS: INR 1.95 (0.82-1.09)
[2018-01-07 06:48] LABS: CHLORIDE 100 mmol/L (98-107); POTASSIUM 3.6 mmol/L (3.5-5.1); SODIUM 139 mmol/L (136-145)
[2018-01-07 06:55] LABS: ALBUMIN 3.5 g/dl (3.4-5.0); ALK PHOS 108 U/L (45-117); ANION GAP 7 (8-16); BILIRUBIN,TOTAL 0.8 mg/dL (0.2-1.0); BLOOD UREA NITROGEN 28 mg/dL (7-18); CALCIUM 9.6 mg/dL (8.5-10.1); CO2 32 mmol/L (21-32); CREATININE 1.1 mg/dL (0.7-1.3); GLUCOSE,RANDOM 90 mg/dL (74-106); SGOT/AST 22 U/L (15-37); SGPT/ALT 17 U/L (12-78); TOT PROT 7.7 g/dl (6.4-8.2)
--- NOTE | 2018-01-07 08:36 | CONSULT ---
Consult - text type - Consultation Consultation Note: NEUROSURGERY CONSULTATION Patient is a 77 year old Latin male with a history of Parkinson's Disease who was admitted with nausea, headaches and dysphagia associated with hypertension. Patient awakens easily to voice and is oriented and converses in Kyr[place]z. ( Speech is generally fluent, however, may be somewhat dysarthric). Left greater than Right dysmetria on [id number] testing. CT on 01/06/18 demonstrates a 3x4cm Left Cerebellar hemisphere hypodense region consistent with infarction. There is no compression of the fourth ventricle. MRI pending. Given how alert he is and that his nausea seems under better control, I agree with plans for management of his blood pressure, supportive care and Rehabilitation. At this point, there is no indication for acute Neurosurgical intervention.
[2018-01-07] MEDS ORDERED: PT OWN MED DRAWER 7, Y5N ONE ×3 (09:15→18:14)
[2018-01-07] MEDS: MUPIROCIN 2% TOPICAL OINTMENT FOR DECOLONIZATION NS SCH ×2 (09:20→21:19)
[2018-01-07] MEDS: CARVEDILOL 25 MG TABLET (FP) PO SCH ×2 (09:21→21:19)
[2018-01-07] MEDS: PANTOPRAZOLE 40 MG TABLET (FP) PO SCH (09:21)
[2018-01-07] MEDS: FLUTICASONE PROP 0.05% 16 GM NASAL SPRAY NS SCH ×2 (09:21→21:19)
[2018-01-07] MEDS: NIFEdipine E.R 60 MG TABLET (UD) PO SCH (09:22)
[2018-01-07] MEDS: TAMSULOSIN HCL 0.4 MG CAP.ER.24H (FP) PO SCH (09:23)
[2018-01-07] MEDS: VALSARTAN 160 MG TABLET (UD) PO SCH (09:23)
[2018-01-07] MEDS ORDERED: NIFEdipine E.R 60 MG TABLET (UD) PO SCH (10:00)
[2018-01-07] MEDS ORDERED: amLODIPine BESYLATE 5 MG TABLET (FP) PO SCH ×2 (10:00)
--- NOTE | 2018-01-07 10:30 | PN ---
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 Selected Entries 01/06/18 01/06/18 01/06/18 02:00 05:00 09:00 Supper Temperature 97.6 F 98.4 F 98 F 01/06/18 01/06/18 01/06/18 14:00 16:15 18:00 Supper 25% Temperature 97.5 F L 97.8 F 98.1 F 01/06/18 01/06/18 01/07/18 20:03 22:00 02:00 Supper Temperature 98.6 F 98.2 F 98.6 F 01/07/18 06:00 Supper Temperature 98.4 F Laboratory Tests 01/07/18 05:[address] on 01/06/18 demonstrates a 3x4cm Left Cerebellar hemisphere hypodense region consistent with infarction. Speech is rapid, dysfluent and dysarthric. Educated staff on dysphagia diet and compensatory swallowingh recommendations. Pt is overtly tolerating Dys puree and [place] thick liquids. No thin liquids at this time.
--- NOTE | 2018-01-07 11:06 | EKG ---
Test Reason : Blood Pressure : / mmHG Vent. Rate : 075 BPM Atrial Rate : 136 BPM P-R Int : 000 ms QRS Dur : 086 ms QT Int : 376 ms P-R-T Axes : 000 050 023 degrees QTc Int : 419 ms ATRIAL FIBRILLATION VOLTAGE CRITERIA FOR LEFT VENTRICULAR HYPERTROPHY ABNORMAL ECG WHEN COMPARED WITH ECG OF 02-JAN-2018 10:32, NO SIGNIFICANT CHANGE WAS FOUND Confirmed by SERA MATHEW MD ([id number]) on 01/07/2018 11:06:18 AM Referred By: DIMITRI KOEHLER DR Confirmed By:SERA MATHEW MD
[2018-01-07] MEDS: levETIRAcetam 500 MG TABLET (FP) PO SCH ×2 (12:41→21:19)
--- NOTE | 2018-01-07 12:45 | PN ---
Teaching Attending Note Name of Resident: Allan Herrera ATTENDING PHYSICIAN STATEMENT I saw and evaluated the patient. I reviewed the resident's note and discussed the case with the resident. I agree with the resident's findings and plan as documented. SUBJECTIVE: Pt seen and examined in the ICU. Transferred down after CT head showing acute/ subacute cerebellar infarct. OBJECTIVE: Last Vital Signs Temp Pulse Resp BP Pulse Ox 98.3 F 84 16 139/92 95 01/07/18 10:00 01/07/18 10:00 01/07/18 10:00 01/07/18 10:00 01/07/18 05:00 Intake & Output 01/04/18 01/05/18 01/06/18 01/07/18 23:59 23:59 23:59 23:59 Intake Total 280 460 430 120 Output Total 1700 950 Balance -1420 -490 430 120 Weight 72.484 kg Gen: somnolent but arousable Heart: RRR Lung: decreased breath sounds at the bases Abd: soft, nontender Ext:no edema CBC, BMP 01/07/18 05:25 01/07/18 05:25 Active Medications Atorvastatin Calcium (Lipitor -) 40 mg PO HS [facility] Last Admin: 01/06/18 21:29 Dose: 40 mg Carbidopa/Levodopa (Sinemet 25/250 -) 1 each PO 0600,1000,1400,1800 [facility] Last Admin: 01/07/18 09:24 Dose: 1 each Carvedilol (Coreg -) 25 mg PO BID [facility] Last Admin: 01/07/18 09:21 Dose: 25 mg Chlorhexidine Gluconate (Hibiclens For Decolonization -) 1 applic TP HS [facility] Last Admin: 01/06/18 21:29 Dose: 1 applic Fluticasone Propionate (Flonase -) 1 spray NS BID [facility] Last Admin: 01/07/18 09:21 Dose: 1 spray Levofloxacin (Levaquin 500 Mg Premixed Ivpb -) 500 mg in 100 mls @ 100 mls/hr IVPB DAILY [facility] Last Admin: 01/07/18 09:17 Dose: 100 mls/hr Levetiracetam (Keppra -) 500 mg PO BID [facility] Last Admin: 01/07/18 12:41 Dose: 500 mg Mupirocin (Bactroban Ointment (For Decolonization) -) 1 applic NS BID [facility] Stop: 01/11/18 21:59 Last Admin: 01/07/18 09:20 Dose: 1 applic Nifedipine (Procardia Xl -) 60 mg PO DAILY [facility] Last Admin: 01/07/18 09:22 Dose: 60 mg Pantoprazole Sodium (Protonix -) 40 mg PO DAILY [facility] Last Admin: 01/07/18 09:21 Dose: 40 mg Ropinirole HCl (Requip -) 0.5 mg PO 0600,1000,1400,1800 [facility] Last Admin: 01/07/18 09:24 Dose: 0.5 mg Tamsulosin HCl (Flomax -) 0.4 mg PO DAILY@0830 [facility] Last Admin: 01/07/18 09:23 Dose: 0.4 mg Valsartan (Diovan -) 320 mg PO DAILY [facility] Last Admin: 01/07/18 09:23 Dose: 320 mg ASSESSMENT AND PLAN: Acute CVA Hypertensive Urgency UTI Dysphagia Parkinsons h/o CVA Atrial Fibrillation Lung Nodule - not a candidate for tPA as pt anticoagulated - BP control - carotid dopplers - continue antibiotics - aspiration precautions - O2 as needed - statin - rate controlled - resume anticoagulation when ok with neuro - outpt f/u of lung nodule - DVT prophylaxis - can monitor on stroke unit/telemetry
--- NOTE | 2018-01-07 13:09 | PN ---
Progress Note, Physician History of Present Illness: Labile BP. Swallowing improving with initiation of Parkinsons meds. Remains in rate-controlled afib. Lethargic, transferred to ICU for recurrent stroke. - Current Medication List Current Medications: Active Medications Atorvastatin Calcium (Lipitor -) 40 mg PO HS [facility] Last Admin: 01/06/18 21:29 Dose: 40 mg Carbidopa/Levodopa (Sinemet 25/250 -) 1 each PO 0600,1000,1400,1800 [facility] Last Admin: 01/07/18 09:24 Dose: 1 each Carvedilol (Coreg -) 25 mg PO BID [facility] Last Admin: 01/07/18 09:21 Dose: 25 mg Chlorhexidine Gluconate (Hibiclens For Decolonization -) 1 applic TP HS [facility] Last Admin: 01/06/18 21:29 Dose: 1 applic Fluticasone Propionate (Flonase -) 1 spray NS BID [facility] Last Admin: 01/07/18 09:21 Dose: 1 spray Levofloxacin (Levaquin 500 Mg Premixed Ivpb -) 500 mg in 100 mls @ 100 mls/hr IVPB DAILY [facility] Last Admin: 01/07/18 09:17 Dose: 100 mls/hr Levetiracetam (Keppra -) 500 mg PO BID [facility] Last Admin: 01/07/18 12:41 Dose: 500 mg Mupirocin (Bactroban Ointment (For Decolonization) -) 1 applic NS BID [facility] Stop: 01/11/18 21:59 Last Admin: 01/07/18 09:20 Dose: 1 applic Nifedipine (Procardia Xl -) 60 mg PO DAILY [facility] Last Admin: 01/07/18 09:22 Dose: 60 mg Pantoprazole Sodium (Protonix -) 40 mg PO DAILY [facility] Last Admin: 01/07/18 09:21 Dose: 40 mg Ropinirole HCl (Requip -) 0.5 mg PO 0600,1000,1400,1800 [facility] Last Admin: 01/07/18 09:24 Dose: 0.5 mg Tamsulosin HCl (Flomax -) 0.4 mg PO DAILY@0830 [facility] Last Admin: 01/07/18 09:23 Dose: 0.4 mg Valsartan (Diovan -) 320 mg PO DAILY [facility] Last Admin: 01/07/18 09:23 Dose: 320 mg - Objective Vital Signs: Vital Signs Temperature 98.3 F 01/07/18 10:00 Pulse Rate 84 01/07/18 10:00 Respiratory Rate 16 01/07/18 10:00 Blood Pressure 139/92 01/07/18 10:00 O2 Sat by Pulse Oximetry (%) 95 01/07/18 05:00 Constitutional: Yes: No Distress, Calm Neck: Yes: Supple Cardiovascular: Yes: Pulse Irregular Respiratory: Yes: Regular, Diminished, On Nasal O2 Gastrointestinal: Yes: Normal Bowel Sounds, Soft Edema: No Labs: CBC, BMP 01/07/18 05:25 01/07/18 05:25 INR, PTT INR 1.95 (0.82-1.09) H 01/07/18 05:25 - ....Imaging Cat Scan: Report Reviewed (Left cerebellar and frontal strokes) EKG: Report Reviewed (Afib @ 75 LVH) Problem List - Problems (1) Atrial fibrillation with rapid ventricular response Code(s): I48.91 - UNSPECIFIED ATRIAL FIBRILLATION (2) CVA (cerebral vascular accident) Code(s): I63.9 - CEREBRAL INFARCTION, UNSPECIFIED Qualifiers: Laterality of affected vessel: unspecified (3) Dysphagia Code(s): R13.10 - DYSPHAGIA, UNSPECIFIED Qualifiers: Dysphagia type: oropharyngeal phase Qualified Code(s): R13.12 - Dysphagia, oropharyngeal phase (4) Hypercholesterolemia Code(s): E78.00 - PURE HYPERCHOLESTEROLEMIA, UNSPECIFIED (5) Parkinson disease Code(s): G20 - PARKINSON'S DISEASE (6) Uncontrolled hypertension Code(s): I10 - ESSENTIAL (PRIMARY) HYPERTENSION (7) Unsteady gait Code(s): R26.81 - UNSTEADINESS ON FEET Assessment/Plan 12/30/2017 Echo: Normal biventricular size and fxn, mild KEO, mild-mod AR 1. Possible oropharyngeal dysphagia secondary to Parkinsons Disease improving 2. Hypertensive urgency with labile BP 3. Atrial fibrillation [id number] score 5 and subtherapeutic INR 4. Acute recurrent CVA 5. Hypercholestetrolemia 6. Parkinson's disease 7. Unsteady gait 8. Hematuria PLAN: 1. Dose Coumadin per INR 2-3 given elevated [id number] stroke risk 2. Continue carvedilol 25 bid, Diovan 320 qd, Procardia XL 60 qd and Lipitor 40 qhs 3. Aspiration precautions, speech and swallow recs appreciated, GI prophylaxis
--- NOTE | 2018-01-07 13:27 | PN ---
Progress Note, Physician History of Present Illness: Pt seen and examined at bedside. He is now in the ICU. - Current Medication List Current Medications: Active Medications Atorvastatin Calcium (Lipitor -) 40 mg PO HS [facility] Last Admin: 01/06/18 21:29 Dose: 40 mg Carbidopa/Levodopa (Sinemet 25/250 -) 1 each PO 0600,1000,1400,1800 [facility] Last Admin: 01/07/18 09:24 Dose: 1 each Carvedilol (Coreg -) 25 mg PO BID [facility] Last Admin: 01/07/18 09:21 Dose: 25 mg Chlorhexidine Gluconate (Hibiclens For Decolonization -) 1 applic TP HS [facility] Last Admin: 01/06/18 21:29 Dose: 1 applic Fluticasone Propionate (Flonase -) 1 spray NS BID [facility] Last Admin: 01/07/18 09:21 Dose: 1 spray Levofloxacin (Levaquin 500 Mg Premixed Ivpb -) 500 mg in 100 mls @ 100 mls/hr IVPB DAILY [facility] Last Admin: 01/07/18 09:17 Dose: 100 mls/hr Levetiracetam (Keppra -) 500 mg PO BID [facility] Last Admin: 01/07/18 12:41 Dose: 500 mg Mupirocin (Bactroban Ointment (For Decolonization) -) 1 applic NS BID [facility] Stop: 01/11/18 21:59 Last Admin: 01/07/18 09:20 Dose: 1 applic Nifedipine (Procardia Xl -) 60 mg PO DAILY [facility] Last Admin: 01/07/18 09:22 Dose: 60 mg Pantoprazole Sodium (Protonix -) 40 mg PO DAILY [facility] Last Admin: 01/07/18 09:21 Dose: 40 mg Ropinirole HCl (Requip -) 0.5 mg PO 0600,1000,1400,1800 [facility] Last Admin: 01/07/18 09:24 Dose: 0.5 mg Tamsulosin HCl (Flomax -) 0.4 mg PO DAILY@0830 [facility] Last Admin: 01/07/18 09:23 Dose: 0.4 mg Valsartan (Diovan -) 320 mg PO DAILY [facility] Last Admin: 01/07/18 09:23 Dose: 320 mg - Objective Vital Signs: Vital Signs Temperature 98.3 F 01/07/18 10:00 Pulse Rate 84 01/07/18 10:00 Respiratory Rate 16 01/07/18 10:00 Blood Pressure 139/92 01/07/18 10:00 O2 Sat by Pulse Oximetry (%) 95 01/07/18 05:00 Constitutional: Yes: Calm Eyes: Yes: Conjunctiva Clear HENT: Yes: Atraumatic Neck: Yes: Supple Cardiovascular: Yes: S1, S2 Respiratory: Yes: CTA Bilaterally Gastrointestinal: Yes: Soft Genitourinary: Yes: WNL Edema: No Neurological: Yes: Pre-Existing Deficit Labs: CBC, BMP 01/07/18 05:25 01/07/18 05:25 INR, PTT INR 1.95 (0.82-1.09) H 01/07/18 05:25 Problem List - Problems (1) Atrial fibrillation with rapid ventricular response Code(s): I48.91 - UNSPECIFIED ATRIAL FIBRILLATION (2) Dysphagia Code(s): R13.10 - DYSPHAGIA, UNSPECIFIED Qualifiers: Dysphagia type: oropharyngeal phase Qualified Code(s): R13.12 - Dysphagia, oropharyngeal phase (3) Hematuria Code(s): R31.9 - HEMATURIA, UNSPECIFIED (4) Poorly controlled blood pressure Code(s): I99.8 - OTHER DISORDER OF CIRCULATORY SYSTEM Assessment/Plan Current Medications Generic Name Dose Route Start Last Admin Trade Name Rosemary PRN Reason Stop Dose Admin Atorvastatin Calcium 40 mg 01/06/18 22:00 01/06/18 21:29 Lipitor - PO 40 mg HS [facility] Administration Carbidopa/Levodopa 1 each 01/07/18 06:00 01/07/18 09:24 Sinemet 25/250 - PO 1 each 0600,1000,1400,1800 [facility] Administration Carvedilol 25 mg 01/06/18 22:00 01/07/18 09:21 Coreg - PO 25 mg BID [facility] Administration Chlorhexidine Gluconate 1 applic 01/06/18 22:00 01/06/18 21:29 Hibiclens For Decolonization - TP 1 applic HS [facility] Administration Fluticasone Propionate 1 spray 01/06/18 22:00 01/07/18 09:21 Flonase - NS 1 spray BID [facility] Administration Levofloxacin 500 mg in 100 mls @ 100 mls/hr 01/07/18 10:00 01/07/18 09:17 Levaquin 500 Mg Premixed Ivpb - IVPB 100 mls/hr DAILY [facility] Administration Levetiracetam 500 mg 01/06/18 22:00 01/07/18 12:41 Keppra - PO 500 mg BID [facility] Administration Mupirocin 1 applic 01/06/18 22:00 01/07/18 09:20 Bactroban Ointment (For Decolonization) - NS 01/11/18 21:59 1 applic BID [facility] Administration Nifedipine 60 mg 01/06/18 20:45 01/07/18 09:22 Procardia Xl - PO 60 mg DAILY [facility] Administration Pantoprazole Sodium 40 mg 01/07/18 10:00 01/07/18 09:21 Protonix - PO 40 mg DAILY [facility] Administration Ropinirole HCl 0.5 mg 01/07/18 06:00 01/07/18 09:24 Requip - PO 0.5 mg 0600,1000,1400,1800 [facility] Administration Tamsulosin HCl 0.4 mg 01/07/18 08:30 01/07/18 09:23 Flomax - PO 0.4 mg DAILY@0830 [facility] Administration Valsartan 320 mg 01/07/18 10:00 01/07/18 09:23 Diovan - PO 320 mg DAILY [facility] Administration Impression 1. hematuria 2. htn 3. parkinsons 4. dysphagia 5. a-fib 6. cva Plan - cont current meds - monitor bp - cardio input appreciated - neuro follow up - renal function is stable - will follow Dr Bermudez
--- NOTE | 2018-01-07 13:35 | PN ---
Progress Note, Physician History of Present Illness: Initially complaining of headache, which resolved with BP control Otherwise asymptomatic. After IV Labetalol x2, patient became hypotensive, resolved spontaneously. - Current Medication List Current Medications: Active Medications Atorvastatin Calcium (Lipitor -) 40 mg PO HS [facility] Last Admin: 01/06/18 21:29 Dose: 40 mg Carbidopa/Levodopa (Sinemet 25/250 -) 1 each PO 0600,1000,1400,1800 [facility] Last Admin: 01/07/18 09:24 Dose: 1 each Carvedilol (Coreg -) 25 mg PO BID [facility] Last Admin: 01/07/18 09:21 Dose: 25 mg Chlorhexidine Gluconate (Hibiclens For Decolonization -) 1 applic TP HS [facility] Last Admin: 01/06/18 21:29 Dose: 1 applic Fluticasone Propionate (Flonase -) 1 spray NS BID [facility] Last Admin: 01/07/18 09:21 Dose: 1 spray Levofloxacin (Levaquin 500 Mg Premixed Ivpb -) 500 mg in 100 mls @ 100 mls/hr IVPB DAILY [facility] Last Admin: 01/07/18 09:17 Dose: 100 mls/hr Levetiracetam (Keppra -) 500 mg PO BID [facility] Last Admin: 01/07/18 12:41 Dose: 500 mg Mupirocin (Bactroban Ointment (For Decolonization) -) 1 applic NS BID [facility] Stop: 01/11/18 21:59 Last Admin: 01/07/18 09:20 Dose: 1 applic Nifedipine (Procardia Xl -) 60 mg PO DAILY [facility] Last Admin: 01/07/18 09:22 Dose: 60 mg Pantoprazole Sodium (Protonix -) 40 mg PO DAILY [facility] Last Admin: 01/07/18 09:21 Dose: 40 mg Ropinirole HCl (Requip -) 0.5 mg PO 0600,1000,1400,1800 [facility] Last Admin: 01/07/18 09:24 Dose: 0.5 mg Tamsulosin HCl (Flomax -) 0.4 mg PO DAILY@0830 [facility] Last Admin: 01/07/18 09:23 Dose: 0.4 mg Valsartan (Diovan -) 320 mg PO DAILY [facility] Last Admin: 01/07/18 09:23 Dose: 320 mg - Objective Vital Signs: Vital Signs Temperature 98.3 F 01/07/18 10:00 Pulse Rate 84 01/07/18 10:00 Respiratory Rate 16 01/07/18 10:00 Blood Pressure 139/92 01/07/18 10:00 O2 Sat by Pulse Oximetry (%) 95 01/07/18 05:00 Additional Findings/Remarks: GEN: Awake, alert, speaking w/ dysarthria (known), talkative HEENT: PERRLA, EOMi CV: S1, S2, RRR LUNG: CTABL ABD: Soft, NT, ND MSK: No edema, no erythema NEURO: Full neurological exam conducted, no sensation or msk deficits, only + dysmetria Labs: CBC, BMP 01/07/18 05:25 01/07/18 05:25 INR, PTT INR 1.95 (0.82-1.09) H 01/07/18 05:25 Assessment/Plan 77yo M with a PMHx of Parkinsons disease, prior CVA without deficits, Afib (was on Coumadin), HTN, HLD who presented with weakness and eventually diagnosed with L cerebellar stroke 4cm non-hemorrhagic # Neuro: Ischemic cerebellar stroke, Parkinsons -- Pt likely had stroke on arrival. Out of tPA window. -- On coumadin for Afib, but was supratherapeutic on arrival. No thrombus on echo. Possibly small vessel dz vs carotid. Will get carotid dopplers -- BP control, Lipitor 40, Keppra 500 BID for seizure prophylaxis, neuro checks -- Continue Sinemet # CV: Hypertensive emergency, Afib -- Continue Norvasc 5 daily, Diovan 320 daily -- Continue Coreg 25 BID for rate control -- Holding Coumadin until neurology approval # ID: UTI -- On Levaquin 500 daily # : BPH -- On flomax 0.4 daily # FEN/PPx: -- No IVF, Dysphagia diet -- SCDs, no GIppx # Dispo -- Stable to transfer to [facility]. Order placed. Kaylee Pal MD PGY1 ICU Resident
--- NOTE | 2018-01-07 14:28 | PN ---
Progress Note, Physician Chief Complaint: AWAKE CONFUSED C/O HEADACHE SWALLOW EVAL REVIEWED - Current Medication List Current Medications: Active Medications Atorvastatin Calcium (Lipitor -) 40 mg PO HS [facility] Last Admin: 01/06/18 21:29 Dose: 40 mg Carbidopa/Levodopa (Sinemet 25/250 -) 1 each PO 0600,1000,1400,1800 [facility] Last Admin: 01/07/18 13:30 Dose: 1 each Carvedilol (Coreg -) 25 mg PO BID [facility] Last Admin: 01/07/18 09:21 Dose: 25 mg Chlorhexidine Gluconate (Hibiclens For Decolonization -) 1 applic TP HS [facility] Last Admin: 01/06/18 21:29 Dose: 1 applic Fluticasone Propionate (Flonase -) 1 spray NS BID [facility] Last Admin: 01/07/18 09:21 Dose: 1 spray Levofloxacin (Levaquin 500 Mg Premixed Ivpb -) 500 mg in 100 mls @ 100 mls/hr IVPB DAILY [facility] Last Admin: 01/07/18 09:17 Dose: 100 mls/hr Levetiracetam (Keppra -) 500 mg PO BID [facility] Last Admin: 01/07/18 12:41 Dose: 500 mg Mupirocin (Bactroban Ointment (For Decolonization) -) 1 applic NS BID [facility] Stop: 01/11/18 21:59 Last Admin: 01/07/18 09:20 Dose: 1 applic Nifedipine (Procardia Xl -) 60 mg PO DAILY [facility] Last Admin: 01/07/18 09:22 Dose: 60 mg Pantoprazole Sodium (Protonix -) 40 mg PO DAILY [facility] Last Admin: 01/07/18 09:21 Dose: 40 mg Ropinirole HCl (Requip -) 0.5 mg PO 0600,1000,1400,1800 [facility] Last Admin: 01/07/18 13:30 Dose: 0.5 mg Tamsulosin HCl (Flomax -) 0.4 mg PO DAILY@0830 [facility] Last Admin: 01/07/18 09:23 Dose: 0.4 mg Valsartan (Diovan -) 320 mg PO DAILY [facility] Last Admin: 01/07/18 09:23 Dose: 320 mg - Objective Vital Signs: Vital Signs Temperature 98.3 F 01/07/18 10:00 Pulse Rate 84 01/07/18 10:00 Respiratory Rate 16 01/07/18 10:00 Blood Pressure 139/92 01/07/18 10:00 O2 Sat by Pulse Oximetry (%) 96 01/07/18 09:00 Constitutional: Yes: Mild Distress Eyes: Yes: WNL HENT: Yes: WNL Neck: Yes: WNL Cardiovascular: Yes: WNL Respiratory: Yes: WNL Gastrointestinal: Yes: WNL Genitourinary: Yes: Incontinence Musculoskeletal: Yes: Muscle Weakness Extremities: Yes: Other Edema: No Peripheral Pulses WNL: Yes Integumentary: Yes: WNL Wound/Incision: Yes: Clean/Dry Neurological: Yes: Pre-Existing Deficit ...Motor Strength: LLE, RLE Psychiatric: Yes: Other Labs: CBC, BMP 01/07/18 05:25 01/07/18 05:25 INR, PTT INR 1.95 (0.82-1.09) H 01/07/18 05:25 Problem List - Problems (1) CVA (cerebral vascular accident) Code(s): I63.9 - CEREBRAL INFARCTION, UNSPECIFIED Qualifiers: Laterality of affected vessel: unspecified (2) DVT prophylaxis Code(s): [id number] - (3) Dysphagia Code(s): R13.10 - DYSPHAGIA, UNSPECIFIED Qualifiers: Dysphagia type: oropharyngeal phase Qualified Code(s): R13.12 - Dysphagia, oropharyngeal phase (4) Hypercholesterolemia Code(s): E78.00 - PURE HYPERCHOLESTEROLEMIA, UNSPECIFIED (5) Parkinson disease Code(s): G20 - PARKINSON'S DISEASE (6) Poorly controlled blood pressure Code(s): I99.8 - OTHER DISORDER OF CIRCULATORY SYSTEM (7) Uncontrolled hypertension Code(s): I10 - ESSENTIAL (PRIMARY) HYPERTENSION (8) Unsteady gait Code(s): R26.81 - UNSTEADINESS ON FEET Assessment/Plan NORVASC INCREASED TO 10MG HYDRALAZINE ADDED NEURO EVAL APPRECIATED ICU TEAM TO MONITOR BP MRI BRAIN ORDERED CT HEAD SHOWS DENSE AREA STOP COUMADIN FOR NOW KEPPRA 500MG BID FOR SEIZURE PRECAUTIONS NEUROCHECKS SEIZURE PRECAUTIONS NEURO FOLLOW UP SHOULD COUMADIN BE RESTARTED AC?
[2018-01-07] MEDS ORDERED: WARFARIN NA 5 MG TABLET (UD) PO ONE (18:00)
[2018-01-07] MEDS: CHLORHEXIDINE GLUCONATE 4% CLEANSER FOR DECOLONIZATION TP SCH (21:18)
[2018-01-07] MEDS: ATORVASTATIN CA 40 MG TABLET (FP) PO SCH (21:18)
[2018-01-08] MEDS: rOPINIRole HCL 0.25 MG TABLET PO SCH ×4 (05:45→18:18)
[2018-01-08] MEDS: CARBIDOPA/LEVODOPA 25/250 TABLET (FP) PO SCH ×4 (05:46→18:18)
[2018-01-08] MEDS: NIFEdipine E.R 60 MG TABLET (UD) PO SCH ×2 (05:53→10:13)
[2018-01-08 06:38] LABS: HEMATOCRIT 42.8 % (35.4-49); HEMOGLOBIN 14.7 GM/dL (11.7-16.9); MCH 30.6 pg (25.7-33.7); MCHC 34.3 g/dl (32.0-35.9); MEAN CELL VOLUME 89.1 fl (80-96); MEAN PLT VOLUME 8.5 fl (7.5-11.1); PLATELET COUNT 214 K/MM3 (134-434); RDW 13.5 % (11.9-15.9); WHITE BLOOD COUNT 8.9 K/mm3 (4.0-10.0)
[2018-01-08 07:08] LABS: ANION GAP 9 (8-16); BLOOD UREA NITROGEN 26 mg/dL (7-18); CALCIUM 9.2 mg/dL (8.5-10.1); CHLORIDE 101 mmol/L (98-107); CO2 29 mmol/L (21-32); GLUCOSE,RANDOM 95 mg/dL (74-106); POTASSIUM 3.8 mmol/L (3.5-5.1); SODIUM 139 mmol/L (136-145)
[2018-01-08 07:13] LABS: INR 1.81 (0.82-1.09); PROTHROMBIN TIME (PATIENT) 20.5 SEC (9.98-11.88)
[2018-01-08] MEDS: levETIRAcetam 500 MG TABLET (FP) PO SCH ×2 (10:08→21:22)
[2018-01-08] MEDS: CARVEDILOL 25 MG TABLET (FP) PO SCH ×2 (10:08→21:22)
[2018-01-08] MEDS: TAMSULOSIN HCL 0.4 MG CAP.ER.24H (FP) PO SCH (10:08)
[2018-01-08] MEDS: VALSARTAN 160 MG TABLET (UD) PO SCH (10:08)
[2018-01-08] MEDS: PANTOPRAZOLE 40 MG TABLET (FP) PO SCH (10:08)
[2018-01-08] MEDS: FLUTICASONE PROP 0.05% 16 GM NASAL SPRAY NS SCH ×2 (10:09→21:22)
--- NOTE | 2018-01-08 11:22 | PN ---
Progress Note, Physician Chief Complaint: Events noted Currently on telemetry Complains of headache and dizziness History of Present Illness: Patient was seen and examined. Awake and alert. Chart was reviewed As outlined above. Brain MRI noted with cerebellar CVA with small hemorrhage and focal infarct left frontal lobe likely chronic - Current Medication List Current Medications: Active Medications Atorvastatin Calcium (Lipitor -) 40 mg PO HS [facility] Last Admin: 01/07/18 21:18 Dose: 40 mg Carbidopa/Levodopa (Sinemet 25/250 -) 1 each PO 0600,1000,1400,1800 [facility] Last Admin: 01/08/18 10:09 Dose: 1 each Carvedilol (Coreg -) 25 mg PO BID [facility] Last Admin: 01/08/18 10:08 Dose: 25 mg Fluticasone Propionate (Flonase -) 1 spray NS BID [facility] Last Admin: 01/08/18 10:09 Dose: 1 spray Levofloxacin (Levaquin 500 Mg Premixed Ivpb -) 500 mg in 100 mls @ 100 mls/hr IVPB DAILY [facility] Last Admin: 01/08/18 10:08 Dose: 100 mls/hr Levetiracetam (Keppra -) 500 mg PO BID [facility] Last Admin: 01/08/18 10:08 Dose: 500 mg Nifedipine (Procardia Xl -) 60 mg PO DAILY [facility] Last Admin: 01/08/18 10:13 Dose: Not Given Pantoprazole Sodium (Protonix -) 40 mg PO DAILY [facility] Last Admin: 01/08/18 10:08 Dose: 40 mg Ropinirole HCl (Requip -) 0.5 mg PO 0600,1000,1400,1800 [facility] Last Admin: 01/08/18 10:09 Dose: 0.5 mg Tamsulosin HCl (Flomax -) 0.4 mg PO DAILY@0830 [facility] Last Admin: 01/08/18 10:08 Dose: 0.4 mg Valsartan (Diovan -) 320 mg PO DAILY [facility] Last Admin: 01/08/18 10:08 Dose: 320 mg - Objective Vital Signs: Vital Signs Temperature 98 F 01/08/18 08:00 Pulse Rate 64 01/08/18 08:00 Respiratory Rate 16 01/08/18 08:00 Blood Pressure 98/60 01/08/18 08:00 O2 Sat by Pulse Oximetry (%) 96 01/07/18 20:59 Cardiovascular: Yes: Pulse Irregular, S1, S2 Respiratory: Yes: Diminished Gastrointestinal: Yes: Normal Bowel Sounds, Soft. No: Tenderness Edema: No Labs: CBC, BMP 01/08/18 06:15 01/08/18 06:15 INR, PTT INR 1.81 (0.82-1.09) H 01/08/18 06:15 Problem List - Problems (1) CVA (cerebral vascular accident) Code(s): I63.9 - CEREBRAL INFARCTION, UNSPECIFIED Qualifiers: Laterality of affected vessel: unspecified (2) Unsteady gait Code(s): R26.81 - UNSTEADINESS ON FEET (3) Hypercholesterolemia Code(s): E78.00 - PURE HYPERCHOLESTEROLEMIA, UNSPECIFIED (4) Dysphagia Code(s): R13.10 - DYSPHAGIA, UNSPECIFIED Qualifiers: Dysphagia type: oropharyngeal phase Qualified Code(s): R13.12 - Dysphagia, oropharyngeal phase (5) Parkinson disease Code(s): G20 - PARKINSON'S DISEASE (6) Uncontrolled hypertension Code(s): I10 - ESSENTIAL (PRIMARY) HYPERTENSION (7) Atrial fibrillation Code(s): I48.91 - UNSPECIFIED ATRIAL FIBRILLATION Qualifiers: Atrial fibrillation type: persistent Qualified Code(s): I48.1 - Persistent atrial fibrillation (8) Cerebellar hemorrhage Code(s): I61.4 - NONTRAUMATIC INTRACEREBRAL HEMORRHAGE IN CEREBELLUM Qualifiers: Intracerebral hemorrhage etiology: nontraumatic Assessment/Plan 1. Dysphagia due to parkinsons 2. Hypertensive urgency intermittently - currently low BP 3. Atrial fibrillation [id number] score probably 5 - Coumadin stopped due to cerebellar hemorrhage 4. History of CVA now with recurrence of cerebellar CVA 5. Hypercholesterolemia 6. Parkinson's disease 7. Unsteady gait PLAN: 1. Currently off anticoagulation, but will need to decide whether anticoagulation should be restarted in view of high risk score for stroke 2. Continue Valsartan and Carvedilol as tolerated 3. Parkinsons treatment 4. Continue Atorvastatin 5. Neuro and Neurosurgery input noted Further plans are to follow. Guarded. Monitor neuro status. Spoke with daughters by bedside. Henrique Thornton MD
--- NOTE | 2018-01-08 13:47 | PN ---
Progress Note, [employer] - Note Progress Note: MRI noted -infarct/hemorrhage, Selected Entries 01/07/18 01/07/18 01/07/18 02:00 06:00 10:00 Breakfast Temperature 98.6 F 98.4 F 98.3 F 01/07/18 01/07/18 01/07/18 14:00 18:56 20:59 Breakfast Temperature 97.8 F 98.2 F 98.5 F 01/08/18 01/08/18 01/08/18 02:00 05:41 08:00 Breakfast Temperature 97.6 F 98.4 F 98 F 01/08/18 11:29 Breakfast 100% Temperature Laboratory Tests 01/08/18 06:15 WBC 8.9 Swallowing function is slightly better. Pt c/o difficulty when food is "too thick." Speech production more precise, still rapid and festinating. Suggest thin out puree with gravy or soup. Continue to use swallowing compensatory strategies.
--- NOTE | 2018-01-08 14:50 | DS ---
Physical Examination Vital Signs: Vital Signs Temperature 97.7 F 01/08/18 14:00 Pulse Rate 93 H 01/08/18 14:00 Respiratory Rate 18 01/08/18 14:00 Blood Pressure 100/60 01/08/18 14:00 O2 Sat by Pulse Oximetry (%) 96 01/08/18 09:00 Findings/Remarks: family bedside Constitutional: Yes: Mild Distress Eyes: Yes: WNL HENT: Yes: WNL Neck: Yes: WNL Cardiovascular: Yes: WNL Respiratory: Yes: WNL Gastrointestinal: Yes: WNL Renal/: Yes: WNL Musculoskeletal: Yes: Muscle Weakness Extremities: Yes: Other Peripheral Pulses WNL: Yes Integumentary: Yes: WNL Wound/Incision: Yes: Clean/Dry Neurological: Yes: Confusion, Unsteady Gait, Weakness ...Motor Strength: LLE, RLE Psychiatric: Yes: Other Labs: CBC, BMP 01/08/18 06:15 01/08/18 06:15 Discharge Summary Reason For Visit: DYSPHAGIA, POORLY CONTROLLED BP, PARKINSONS DISEAS Current Active Problems Atrial fibrillation (Acute) Atrial fibrillation with rapid ventricular response (Acute) CVA (cerebral vascular accident) (Acute) Cerebellar hemorrhage (Acute) DVT prophylaxis (Acute) Dysphagia (Acute) Hematuria (Acute) Hypercholesterolemia (Acute) Lung nodule < 6cm on CT (Acute) Oropharyngeal dysphagia (Acute) Parkinson disease (Acute) Pneumonia (Acute) Poorly controlled blood pressure (Acute) SOB (shortness of breath) (Acute) UTI (urinary tract infection) (Acute) Uncontrolled hypertension (Acute) Unsteady gait (Acute) Procedures: Principal: mri brain/ct brain Hospital Course: admitted toxic metabolic encephlopathy, uti, inr elevation, cva acute will need aggressive physical therapy and giat teaching Condition: Fair - Instructions Diet, Activity, Other Instructions: thick liquids dysphagia precautions Referrals: Susan Martinez [Primary Care Provider] - Disposition: [facility] - Home Medications Comprehensive Discharge Medication List: Ambulatory Orders Atorvastatin Ca [Lipitor] 80 mg PO HS 12/29/17 Carbidopa/Levodopa *Cr* 50/200 [Sinemet *Cr* 50/200 -] 1 combo PO BID 12/29/17 Carbidopa/Levodopa 25/100 [Sinemet 25/100 -] 1 each PO TID 12/29/17 Diphenhydramine [Benadryl -] 25 mg PO DAILY 12/29/17 Losartan Potassium 100 mg PO DAILY 12/29/17 Metoprolol Succinate 50 mg PO DAILY 12/29/17 Omeprazole 40 mg PO DAILY 12/29/17 Rasagiline Mesylate 1 mg PO DAILY 12/29/17 Ropinirole HCl 0.5 mg PO DAILY 12/29/17 Ropinirole HCl [Ropinirole ER] 2 mg PO DAILY 12/29/17 Tamsulosin HCl 0.4 mg PO DAILY 12/29/17 Warfarin Sodium [Coumadin] 1 mg PO ASDIR 12/29/17 Warfarin Sodium [Coumadin] 4 mg PO ASDIR 12/29/17
--- NOTE | 2018-01-08 15:48 | PN ---
Progress Note, Physician History of Present Illness: Pt seen and examined at bedside. He is at baseline. BP has been improving. - Current Medication List Current Medications: Active Medications Atorvastatin Calcium (Lipitor -) 40 mg PO HS [facility] Last Admin: 01/07/18 21:18 Dose: 40 mg Carbidopa/Levodopa (Sinemet 25/250 -) 1 each PO 0600,1000,1400,1800 [facility] Last Admin: 01/08/18 14:42 Dose: 1 each Carvedilol (Coreg -) 25 mg PO BID [facility] Last Admin: 01/08/18 10:08 Dose: 25 mg Fluticasone Propionate (Flonase -) 1 spray NS BID [facility] Last Admin: 01/08/18 10:09 Dose: 1 spray Levetiracetam (Keppra -) 500 mg PO BID [facility] Last Admin: 01/08/18 10:08 Dose: 500 mg Nifedipine (Procardia Xl -) 60 mg PO DAILY [facility] Last Admin: 01/08/18 10:13 Dose: Not Given Pantoprazole Sodium (Protonix -) 40 mg PO DAILY [facility] Last Admin: 01/08/18 10:08 Dose: 40 mg Ropinirole HCl (Requip -) 0.5 mg PO 0600,1000,1400,1800 [facility] Last Admin: 01/08/18 14:42 Dose: 0.5 mg Tamsulosin HCl (Flomax -) 0.4 mg PO DAILY@0830 [facility] Last Admin: 01/08/18 10:08 Dose: 0.4 mg Valsartan (Diovan -) 320 mg PO DAILY [facility] Last Admin: 01/08/18 10:08 Dose: 320 mg - Objective Vital Signs: Vital Signs Temperature 97.7 F 01/08/18 14:00 Pulse Rate 88 01/08/18 15:13 Respiratory Rate 14 01/08/18 15:13 Blood Pressure 134/78 01/08/18 15:13 O2 Sat by Pulse Oximetry (%) 96 01/08/18 09:00 Constitutional: Yes: Calm Eyes: Yes: Conjunctiva Clear HENT: Yes: Atraumatic Cardiovascular: Yes: S1, S2 Respiratory: Yes: On Nasal O2 Gastrointestinal: Yes: Soft Genitourinary: Yes: Incontinence Musculoskeletal: Yes: WNL Edema: No Neurological: Yes: Pre-Existing Deficit Labs: CBC, BMP 01/08/18 06:15 01/08/18 06:15 INR, PTT INR 1.81 (0.82-1.09) H 01/08/18 06:15 Problem List - Problems (1) Atrial fibrillation with rapid ventricular response Code(s): I48.91 - UNSPECIFIED ATRIAL FIBRILLATION (2) Dysphagia Code(s): R13.10 - DYSPHAGIA, UNSPECIFIED Qualifiers: Dysphagia type: oropharyngeal phase Qualified Code(s): R13.12 - Dysphagia, oropharyngeal phase (3) Hematuria Code(s): R31.9 - HEMATURIA, UNSPECIFIED (4) Poorly controlled blood pressure Code(s): I99.8 - OTHER DISORDER OF CIRCULATORY SYSTEM Assessment/Plan Current Medications Generic Name Dose Route Start Last Admin Trade Name Freq PRN Reason Stop Dose Admin Atorvastatin Calcium 40 mg 01/06/18 22:00 01/07/18 21:18 Lipitor - PO 40 mg HS [facility] Administration Carbidopa/Levodopa 1 each 01/07/18 06:00 01/08/18 14:42 Sinemet 25/250 - PO 1 each 0600,1000,1400,1800 [facility] Administration Carvedilol 25 mg 01/06/18 22:00 01/08/18 10:08 Coreg - PO 25 mg BID [facility] Administration Fluticasone Propionate 1 spray 01/06/18 22:00 01/08/18 10:09 Flonase - NS 1 spray BID [facility] Administration Levetiracetam 500 mg 01/06/18 22:00 01/08/18 10:08 Keppra - PO 500 mg BID [facility] Administration Nifedipine 60 mg 01/06/18 20:45 01/08/18 10:13 Procardia Xl - PO Not Given DAILY [facility] Pantoprazole Sodium 40 mg 01/07/18 10:00 01/08/18 10:08 Protonix - PO 40 mg DAILY [facility] Administration Ropinirole HCl 0.5 mg 01/07/18 06:00 01/08/18 14:42 Requip - PO 0.5 mg 0600,1000,1400,1800 [facility] Administration Tamsulosin HCl 0.4 mg 01/07/18 08:30 01/08/18 10:08 Flomax - PO 0.4 mg DAILY@0830 [facility] Administration Valsartan 320 mg 01/07/18 10:00 01/08/18 10:08 Diovan - PO 320 mg DAILY [facility] Administration Impression 1. hematuria 2. htn 3. parkinsons 4. dysphagia 5. a-fib 6. cva Plan - bp is improving - will need to monitor blood pressure closely after discharge - check bmp in [place] - neuro follow up - will follow Dr Bermudez
--- NOTE | 2018-01-08 15:52 | PN ---
Progress Note (short form) - Note Progress Note: Resting in NAD. No CP or SOB. Intake & Output 01/05/18 01/06/18 01/07/18 01/08/18 23:59 23:59 23:59 23:59 Intake Total 460 430 580 260 Output Total 950 Balance -490 430 580 260 Weight 159 lb 12.8 oz 157 lb 6.4 oz Last Vital Signs Temp Pulse Resp BP Pulse Ox 97.7 F 88 14 134/78 96 01/08/18 14:00 01/08/18 15:13 01/08/18 15:13 01/08/18 15:13 01/08/18 09:00 Active Medications Atorvastatin Calcium (Lipitor -) 40 mg PO HS [facility] Last Admin: 01/07/18 21:18 Dose: 40 mg Carbidopa/Levodopa (Sinemet 25/250 -) 1 each PO 0600,1000,1400,1800 [facility] Last Admin: 01/08/18 14:42 Dose: 1 each Carvedilol (Coreg -) 25 mg PO BID [facility] Last Admin: 01/08/18 10:08 Dose: 25 mg Fluticasone Propionate (Flonase -) 1 spray NS BID [facility] Last Admin: 01/08/18 10:09 Dose: 1 spray Levetiracetam (Keppra -) 500 mg PO BID [facility] Last Admin: 01/08/18 10:08 Dose: 500 mg Nifedipine (Procardia Xl -) 60 mg PO DAILY [facility] Last Admin: 01/08/18 10:13 Dose: Not Given Pantoprazole Sodium (Protonix -) 40 mg PO DAILY [facility] Last Admin: 01/08/18 10:08 Dose: 40 mg Ropinirole HCl (Requip -) 0.5 mg PO 0600,1000,1400,1800 [facility] Last Admin: 01/08/18 14:42 Dose: 0.5 mg Tamsulosin HCl (Flomax -) 0.4 mg PO DAILY@0830 [facility] Last Admin: 01/08/18 10:08 Dose: 0.4 mg Valsartan (Diovan -) 320 mg PO DAILY [facility] Last Admin: 01/08/18 10:08 Dose: 320 mg Gen: NAD at rest Heart: RRR Lung: decreased breath sounds at the bases Abd: soft, nontender Ext: no edema Laboratory Results - last 24 hr 01/08/18 01/08/1801/08/18 06:15 06:15 06:15 WBC 8.9 RBC 4.80 Hgb 14.7 Hct 42.8 MCV 89.1 MCH 30.6 MCHC 34.3 RDW 13.5 Plt Count 214 MPV 8.5 PT with INR 20.50 H INR 1.81 H Sodium 139 Potassium 3.8 Chloride 101 Carbon Dioxide 29 Anion Gap 9 BUN 26 H Creatinine 1.0 Random Glucose 95 Calcium 9.2 A/P Hypertensive Urgency UTI Dysphagia Parkinsons h/o CVA Atrial Fibrillation Lung Nodule - Aspiration precautions - O2 as needed - rate controlled - continue anticoagulation - outpatient followup of lung nodule - Parkinsons meds - D/C planning Dr Soliman Problem List - Problems (1) Dysphagia Code(s): R13.10 - DYSPHAGIA, UNSPECIFIED Qualifiers: Dysphagia type: oropharyngeal phase Qualified Code(s): R13.12 - Dysphagia, oropharyngeal phase (2) Hypercholesterolemia Code(s): E78.00 - PURE HYPERCHOLESTEROLEMIA, UNSPECIFIED (3) Parkinson disease Code(s): G20 - PARKINSON'S DISEASE (4) Poorly controlled blood pressure Code(s): I99.8 - OTHER DISORDER OF CIRCULATORY SYSTEM
[2018-01-08] MEDS: ATORVASTATIN CA 40 MG TABLET (FP) PO SCH (21:22)
[2018-01-09] MEDS: CARBIDOPA/LEVODOPA 25/250 TABLET (FP) PO SCH ×4 (05:28→17:34)
[2018-01-09] MEDS: rOPINIRole HCL 0.25 MG TABLET PO SCH ×4 (05:28→17:34)
[2018-01-09] MEDS: NIFEdipine E.R 60 MG TABLET (UD) PO SCH ×2 (05:32→09:16)
[2018-01-09] MEDS ORDERED: PT OWN MED DRAWER 7, Y5N ONE (05:47)
[2018-01-09 07:39] LABS: INR 1.92 (0.82-1.09); PROTHROMBIN TIME (PATIENT) 21.7 SEC (9.98-11.88)
--- NOTE | 2018-01-09 08:41 | PN ---
Progress Note, Physician History of Present Illness: BP control improved. Swallowing improving with initiation of Parkinsons meds. Remains in rate-controlled afib. Sensorium improved, brain MRI shows left cerebellar stroke with hemorrhage, a/c d/sosa. - Current Medication List Current Medications: Active Medications Atorvastatin Calcium (Lipitor -) 40 mg PO HS [facility] Last Admin: 01/08/18 21:22 Dose: 40 mg Carbidopa/Levodopa (Sinemet 25/250 -) 1 each PO 0600,1000,1400,1800 [facility] Last Admin: 01/09/18 05:28 Dose: 1 each Carvedilol (Coreg -) 25 mg PO BID [facility] Last Admin: 01/08/18 21:22 Dose: 25 mg Fluticasone Propionate (Flonase -) 1 spray NS BID [facility] Last Admin: 01/08/18 21:22 Dose: Not Given Levetiracetam (Keppra -) 500 mg PO BID [facility] Last Admin: 01/08/18 21:22 Dose: 500 mg Nifedipine (Procardia Xl -) 60 mg PO DAILY [facility] Last Admin: 01/09/18 05:32 Dose: 60 mg Pantoprazole Sodium (Protonix -) 40 mg PO DAILY [facility] Last Admin: 01/08/18 10:08 Dose: 40 mg Ropinirole HCl (Requip -) 0.5 mg PO 0600,1000,1400,1800 [facility] Last Admin: 01/09/18 05:28 Dose: 0.5 mg Tamsulosin HCl (Flomax -) 0.4 mg PO DAILY@0830 [facility] Last Admin: 01/08/18 10:08 Dose: 0.4 mg Valsartan (Diovan -) 320 mg PO DAILY [facility] Last Admin: 01/08/18 10:08 Dose: 320 mg - Objective Vital Signs: Vital Signs Temperature 98.7 F 01/09/18 04:00 Pulse Rate 82 01/09/18 04:00 Respiratory Rate 18 01/09/18 04:00 Blood Pressure 187/98 01/09/18 04:00 O2 Sat by Pulse Oximetry (%) 97 01/08/18 19:35 Constitutional: Yes: No Distress, Calm, Thin Neck: Yes: Supple Cardiovascular: Yes: Pulse Irregular Respiratory: Yes: Regular, CTA Bilaterally Gastrointestinal: Yes: Normal Bowel Sounds, Soft Edema: No Labs: CBC, BMP 01/08/18 06:15 01/08/18 06:15 INR, PTT INR 1.92 (0.82-1.09) H 01/09/18 06:10 - ....Imaging EKG: Report Reviewed (Rate-controlled afib) Problem List - Problems (1) Atrial fibrillation with rapid ventricular response Code(s): I48.91 - UNSPECIFIED ATRIAL FIBRILLATION (2) CVA (cerebral vascular accident) Code(s): I63.9 - CEREBRAL INFARCTION, UNSPECIFIED Qualifiers: Laterality of affected vessel: unspecified (3) Dysphagia Code(s): R13.10 - DYSPHAGIA, UNSPECIFIED Qualifiers: Dysphagia type: oropharyngeal phase Qualified Code(s): R13.12 - Dysphagia, oropharyngeal phase (4) Hypercholesterolemia Code(s): E78.00 - PURE HYPERCHOLESTEROLEMIA, UNSPECIFIED (5) Parkinson disease Code(s): G20 - PARKINSON'S DISEASE (6) Uncontrolled hypertension Code(s): I10 - ESSENTIAL (PRIMARY) HYPERTENSION (7) Unsteady gait Code(s): R26.81 - UNSTEADINESS ON FEET Assessment/Plan 12/30/2017 Echo: Normal biventricular size and fxn, mild KEO, mild-mod AR 01/08/18 Brain MRI: Partial acute/subacute stroke left cerebellum with edema and hemorrhage 1. Possible oropharyngeal dysphagia secondary to Parkinsons Disease improving 2. Hypertensive urgency with labile BP 3. Atrial fibrillation [id number] score 5 and subtherapeutic INR 4. Acute recurrent CVA with hemorrhage 5. Hypercholestetrolemia 6. Parkinson's disease 7. Unsteady gait 8. Hematuria PLAN: 1. Coumadin d/sosa, would resume once hemostasis achieved per neurology/NSG input given elevated [id number] stroke risk 2. Continue carvedilol 25 bid, Diovan 320 qd, Procardia XL 60 qd and Lipitor 40 qhs 3. Aspiration precautions, speech and swallow recs appreciated, GI prophylaxis 4. D/c planning
[2018-01-09] MEDS: levETIRAcetam 500 MG TABLET (FP) PO SCH (09:15)
[2018-01-09] MEDS: TAMSULOSIN HCL 0.4 MG CAP.ER.24H (FP) PO SCH (09:15)
[2018-01-09] MEDS: VALSARTAN 160 MG TABLET (UD) PO SCH (09:15)
[2018-01-09] MEDS: CARVEDILOL 25 MG TABLET (FP) PO SCH (09:15)
[2018-01-09] MEDS: PANTOPRAZOLE 40 MG TABLET (FP) PO SCH (09:16)
[2018-01-09] MEDS: FLUTICASONE PROP 0.05% 16 GM NASAL SPRAY NS SCH (10:31)
--- NOTE | 2018-01-09 11:17 | PN ---
Progress Note, [employer] - Note Progress Note: Selected Entries 01/07/18 01/07/18 01/07/18 02:00 06:00 10:00 Breakfast Lunch Supper Temperature 98.6 F 98.4 F 98.3 F 01/07/18 01/07/18 01/07/18 14:00 18:56 20:59 Breakfast Lunch Supper Temperature 97.8 F 98.2 F 98.5 F 01/07/18 01/08/18 01/08/18 21:20 02:00 05:41 Breakfast Lunch Supper 100% Temperature 97.6 F 98.4 F 01/08/18 01/08/18 01/08/18 08:00 11:29 14:00 Breakfast 100% Lunch 75% Supper Temperature 98 F 97.7 F 01/08/18 01/08/18 01/08/18 17:00 19:32 22:00 Breakfast Lunch Supper 25% Temperature 98.8 F 97.5 F L 01/09/18 01/09/18 02:00 04:00 Breakfast Lunch Supper Temperature 98.3 F 98.7 F Laboratory Tests 01/08/18 06:15 WBC 8.9 Pending discharge. Pt would benefit from continued speech/swallowing therapy upon discharge.
[2018-01-09] MEDS ORDERED: ACETAMINOPHEN 325 MG TABLET (FP) PO PRN (11:26)
[2018-01-09 14:59] VITALS: BP 101/68; PULSE 80; TEMP 98.5
--- NOTE | 2018-01-09 16:33 | PN ---
Progress Note, Physician History of Present Illness: Pt seen and examined at bedside. Mental status is at baseline. - Current Medication List Current Medications: Active Medications Acetaminophen (Tylenol -) 650 mg PO Q6H PRN PRN Reason: PAIN OR FEVER Last Admin: 01/09/18 12:44 Dose: 650 mg Atorvastatin Calcium (Lipitor -) 40 mg PO HS [facility] Last Admin: 01/08/18 21:22 Dose: 40 mg Carbidopa/Levodopa (Sinemet 25/250 -) 1 each PO 0600,1000,1400,1800 [facility] Last Admin: 01/09/18 13:33 Dose: 1 each Carvedilol (Coreg -) 25 mg PO BID [facility] Last Admin: 01/09/18 09:15 Dose: 25 mg Fluticasone Propionate (Flonase -) 1 spray NS BID [facility] Last Admin: 01/09/18 10:31 Dose: 1 spray Levetiracetam (Keppra -) 500 mg PO BID [facility] Last Admin: 01/09/18 09:15 Dose: 500 mg Nifedipine (Procardia Xl -) 60 mg PO DAILY [facility] Last Admin: 01/09/18 09:16 Dose: 60 mg Pantoprazole Sodium (Protonix -) 40 mg PO DAILY [facility] Last Admin: 01/09/18 09:16 Dose: 40 mg Ropinirole HCl (Requip -) 0.5 mg PO 0600,1000,1400,1800 [facility] Last Admin: 01/09/18 13:33 Dose: 0.5 mg Tamsulosin HCl (Flomax -) 0.4 mg PO DAILY@0830 [facility] Last Admin: 01/09/18 09:15 Dose: 0.4 mg Valsartan (Diovan -) 320 mg PO DAILY [facility] Last Admin: 01/09/18 09:15 Dose: 320 mg - Objective Vital Signs: Vital Signs Temperature 98.5 F 01/09/18 14:00 Pulse Rate 80 01/09/18 14:00 Respiratory Rate 18 01/09/18 14:00 Blood Pressure 101/68 01/09/18 14:00 O2 Sat by Pulse Oximetry (%) 97 01/09/18 09:00 Constitutional: Yes: Calm Eyes: Yes: Conjunctiva Clear HENT: Yes: Atraumatic Cardiovascular: Yes: S1, S2 Respiratory: Yes: On Nasal O2 Gastrointestinal: Yes: Soft Genitourinary: Yes: Incontinence Musculoskeletal: Yes: Muscle Weakness Edema: No Neurological: Yes: Pre-Existing Deficit Labs: CBC, BMP 01/08/18 06:15 01/08/18 06:15 INR, PTT INR 1.92 (0.82-1.09) H 01/09/18 06:10 Problem List - Problems (1) Atrial fibrillation with rapid ventricular response Code(s): I48.91 - UNSPECIFIED ATRIAL FIBRILLATION (2) Dysphagia Code(s): R13.10 - DYSPHAGIA, UNSPECIFIED Qualifiers: Dysphagia type: oropharyngeal phase Qualified Code(s): R13.12 - Dysphagia, oropharyngeal phase (3) Hematuria Code(s): R31.9 - HEMATURIA, UNSPECIFIED (4) Poorly controlled blood pressure Code(s): I99.8 - OTHER DISORDER OF CIRCULATORY SYSTEM Assessment/Plan Current Medications Generic Name Dose Route Start Last Admin Trade Name Freq PRN Reason Stop Dose Admin Acetaminophen 650 mg 01/09/18 11:26 01/09/18 12:44 Tylenol - PO 650 mg Q6H PRN Administration PAIN OR FEVER Atorvastatin Calcium 40 mg 01/06/18 22:00 01/08/18 21:22 Lipitor - PO 40 mg HS [facility] Administration Carbidopa/Levodopa 1 each 01/07/18 06:00 01/09/18 13:33 Sinemet 25/250 - PO 1 each 0600,1000,1400,1800 [facility] Administration Carvedilol 25 mg 01/06/18 22:00 01/09/18 09:15 Coreg - PO 25 mg BID [facility] Administration Fluticasone Propionate 1 spray 01/06/18 22:00 01/09/18 10:31 Flonase - NS 1 spray BID [facility] Administration Levetiracetam 500 mg 01/06/18 22:00 01/09/18 09:15 Keppra - PO 500 mg BID [facility] Administration Nifedipine 60 mg 01/06/18 20:45 01/09/18 09:16 Procardia Xl - PO 60 mg DAILY [facility] Administration Pantoprazole Sodium 40 mg 01/07/18 10:00 01/09/18 09:16 Protonix - PO 40 mg DAILY [facility] Administration Ropinirole HCl 0.5 mg 01/07/18 06:00 01/09/18 13:33 Requip - PO 0.5 mg 0600,1000,1400,1800 [facility] Administration Tamsulosin HCl 0.4 mg 01/07/18 08:30 01/09/18 09:15 Flomax - PO 0.4 mg DAILY@0830 [facility] Administration Valsartan 320 mg 01/07/18 10:00 01/09/18 09:15 Diovan - PO 320 mg DAILY [facility] Administration Impression 1. hematuria 2. htn 3. parkinsons 4. dysphagia 5. a-fib 6. cva Plan - cont current meds - AC on hold, cardio input appreciated - cont to monitor bp - will follow - urology follow up for hematuria as well - cont with valsartan, coreg and procardia Dr Bermudez
== END 2018-01-09 18:16 | DRG 64 ==
LOC: JER 13:41 → JERBED 20:32 → J4W 12-30 23:21 → JICU 01-06 15:55 → J4W 01-07 18:21
PROVIDERS: ADMIT Internal Medicine; ATTEND Family Medicine
DX: I61.4 Nontraumatic intracerebral hemorrhage in cerebellum (principal); G92 Toxic encephalopathy; G93.6 Cerebral edema; J18.9 Pneumonia, unspecified organism; N39.0 Urinary tract infection, site not specified; R13.10 Dysphagia, unspecified; G20 Parkinson's disease; I16.0 Hypertensive urgency; R31.9 Hematuria, unspecified; R26.81 Unsteadiness on feet; I48.91 Unspecified atrial fibrillation; R91.1 Solitary pulmonary nodule; N40.0 Benign prostatic hyperplasia without lower urinary tract symptoms; I95.9 Hypotension, unspecified; R79.1 Abnormal coagulation profile; E78.5 Hyperlipidemia, unspecified
CPT/HCPCS: 36415; 36600; 70450-TC; 70551-TC; 71045-TC-FY; 71250-TC; 74220-TC-FY; 74230-TC-FY; 80048; 80053; 80061; 81003; 81015; 82550; 82553; 82803; 83036; 83721; 83735; 83880; 84100; 84484; 85025; 85027; 85610; 87086; 87186; 92611-GN; 93005; 93010; 93306-TC; 93880-TC; 97116-GP; 97161-GP; 97164-GP; 99285-25

== ENCOUNTER 2018-01-31 16:00 | Inpatient (IN) | payer MEDICARE, OTHER ==
--- NOTE | 2018-01-31 16:09 | PDOC ---
History of Present Illness - General History Source: Family (daughter ) Exam Limitations: No Limitations - History of Present Illness Initial Comments: 01/31/18 16:27 The patient is a 77 year old male with a significant past medical history of hypertension, Parkinson's dementia, CVA x 2 (most recent: 12/29/17),and A-fib sent to the ED, from group home, for G-tube complications since last night. As per daughter, the patient had a G-tube placed 2 weeks ago secondary to his hx of CVA. Daughter states the patients G-tube became clogged last in his group home. Daughter states the patient has not received his medications today secondary to his G-tube being clogged. Denies any other symptoms. <Christian Bray - Last Filed: 01/31/18 16:27> <Mckenzie Silva - Last Filed: 01/31/18 19:18> - General Stated Complaint: GI TUBE Time Seen by Provider: 01/31/18 16:06 Past History <Christian Bray - Last Filed: 01/31/18 16:27> - Past Medical History Cardiac Disorders: Yes (afib) CVA: Yes COPD: No Disorders: Yes (BPH) HTN: Yes Hypercholesterolemia: Yes - Surgical History Abdominal Surgery: Yes (ING HERNIA) - Suicide/Smoking/Psychosocial Hx Smoking History: Never smoked Have you smoked in the past 12 months: No Hx Alcohol Use: No Drug/Substance Use Hx: No Substance Use Type: None <Mckenzie Silva - Last Filed: 01/31/18 19:18> - Past Medical History Allergies/Adverse Reactions: Allergies Allergy/AdvReac Type Severity Reaction Status Date / Time Penicillins Allergy Verified 01/31/18 16:16 Home Medications: Ambulatory Orders Acetaminophen [Tylenol] 325 mg PO TID PRN 01/14/18 Atorvastatin Ca [Lipitor] 40 mg PO HS 01/14/18 Fluticasone Prop 0.05% Nasal [Flonase -] 1 spray NS BID 01/14/18 Nifedipine [Procardia Capsule -] 60 mg GT DAILY 01/14/18 Pantoprazole Sodium [Protonix] 40 mg PO DAILY 01/14/18 Ropinirole HCl [Requip] 0.5 mg PO QID 01/14/18 Tamsulosin HCl [Flomax] 0.4 mg PO DAILY 01/14/18 Bacitracin - [Bacitracin Topical Ointment -] 1 applic TP BID tube 01/27/18 Carbidopa/Levodopa 25/100 [Sinemet 25/100 -] 2 each PEG 0700,1100,1500,1900 tablet 01/27/18 Carvedilol [Coreg -] 25 mg PEG BID tablet 01/27/18 Valsartan [Diovan] 160 mg PEG BID tablet 01/27/18 levETIRAcetam [Keppra Oral Solution -] 500 mg GT BID cup 01/27/18 Warfarin Na [Coumadin -] 6 mg PO DAILY@1800 01/31/18 Review of Systems - Review of Systems Able to Perform ROS?: Yes Comments:: 01/31/18 16:27 GENERAL/CONSTITUTIONAL: No fever or chills. No weakness. HEAD, EYES, EARS, NOSE AND THROAT: No change in vision. No ear pain or discharge. No sore throat. GASTROINTESTINAL: + G-tube complication. No nausea, vomiting, diarrhea or constipation. GENITOURINARY: No dysuria, frequency, or change in urination. CARDIOVASCULAR: No chest pain or shortness of breath. RESPIRATORY: No cough, wheezing, or hemoptysis. MUSCULOSKELETAL: No joint or muscle swelling or pain. No neck or back pain. SKIN: No rash NEUROLOGIC: No headache, vertigo, loss of consciousness, or change in strength/ sensation. ENDOCRINE: No increased thirst. No abnormal weight change. HEMATOLOGIC/LYMPHATIC: No anemia, easy bleeding, or history of blood clots. ALLERGIC/IMMUNOLOGIC: No hives or skin allergy. All Other Systems: Reviewed and Negative <Christian Bray - Last Filed: 01/31/18 16:27> *Physical Exam - Vital Signs Last Vital Signs Temp Pulse Resp BP Pulse Ox 98.7 F 90 20 174/96 01/31/18 16:14 01/31/18 16:14 01/31/18 16:14 01/31/18 16:14 - Physical Exam Comments: 01/31/18 16:28 Constitutional: Awake, alert, oriented. No acute distress. Head: Normocephalic. Atraumatic Eyes: PERRL. EOMI. Conjunctivae are not pale. ENT: Mucous membranes are moist and intact. Posterior pharynx without exudates or erythema. Uvula midline. Neck: Supple. Full ROM. No lymphadenopathy. Cardiovascular: Regular rate. Regular rhythm. S1, S2 regular. Distal pulses are 2+ and symmetric. Pulmonary/Chest: No evidence of respiratory distress. Clear to auscultation bilaterally No wheezing, rales or rhonchi. Abdominal: + G-tube in place, there are surgical buttons, well healed, no erythema, no drainage from wound. Soft and non-distended. There is no tenderness. No rebound, guarding or rigidity. No organomegaly. No palpable masses. Good bowel sounds. Back: No CVA tenderness. Musculoskeletal: No edema. No cyanosis. No clubbing. Full range of motion in all extremities. Nocalf tenderness. Radial/pedal pulses are intact and 2+ bilaterally Skin: Skin is warm and dry. No petechiae. No purpura. Neurological: Alert and oriented to person, place, and time. Cranial nerves II -XII are grossly intact. Normal speech. Strength is grossly symmetric. No sensory deficits. Psychiatric: Good eye contact. Normal interaction, affect and behavior. <Christian Bray - Last Filed: 01/31/18 16:27> Heart Score/ECG Review - ECG Intrepretation Comment:: 01/31/18 18:57 afib at 92, nl axis, lvh, q waves septally that are age indeterminate, no acute st/t wave findings <Mckenzei Silva - Last Filed: 01/31/18 19:18> ED Treatment Course - LABORATORY CBC & Chemistry Diagram: 01/31/18 18:06 01/31/18 18:06 <Mckenzie Silva - Last Filed: 01/31/18 19:18> Medical Decision Making - Medical Decision Making 01/31/18 16:56 a/p: 77yo male presents from [place] for eval of clogged peg tube -placed 2 weeks ago -attempted to declog with [facility] marissa -attempting to get declogger from [facility] to declog the peg -if able to declog and make peg functional will give todays meds through peg and d/c back to [place] -if unabel to declog peg, pt will need to stay for eval by surgery. 01/31/18 18:01 used the declogger to open the peg unable to declog the peg will place iv will give gentle ivf hydraiton will check labs and admit for IR to re-eval peg tomorrow 01/31/18 19:17 Dr. Lopez admits to [facility] after 5p case discussed with SRAVAN who accepts pt to service under [facility]. family at the bedside and updated on the plan <Mckenzie Silva - Last Filed: 01/31/18 19:18> *DC/Admit/Observation/Transfer - Attestations Scribe Attestion: 01/31/18 16:28 Documentation prepared by Christian Bray, acting as medical screener for Mckenzie Silva DO <Christian Bray - Last Filed: 01/31/18 16:27> - Discharge Dispostion Admit: Yes - Attestations Physician Attestion: 01/31/18 19:00 I, Dr. Mckenzie Silva, DO, attest that this document has been prepared under my direction and personally reviewed by me in its entirety. I further attest, that it accurately reflects all work, treatment, procedures and medical decision -making performed by me. <Mckenzie Silva - Last Filed: 01/31/18 19:18> Diagnosis at time of Disposition: PEG tube malfunction - Discharge Dispostion Condition at time of disposition: Stable - Referrals Referrals: Nava Lopez MD [Primary Care Provider] - - Patient Instructions - Post Discharge Activity
[2018-01-31 16:17] VITALS: BMI 22.3
[2018-01-31] MEDS ORDERED: METOPROLOL TARTRATE 5 MG/5 ML VIAL IVPUSH ONE (17:58)
[2018-01-31] MEDS ORDERED: PANTOPRAZOLE SODIUM 40 MG VIAL IVPUSH ONE (18:00)
[2018-01-31] MEDS ORDERED: levETIRAcetam 500 MG/5 ML INJECTION VIAL IVPB ONE ×2 (18:00→18:14)
[2018-01-31] MEDS ORDERED: SODIUM CHLORIDE 0.9% 1000 ML INFUS.BAG IV ONE (18:02)
[2018-01-31 18:10] LABS: BASO % 0.5 % (0-2.0); HEMATOCRIT 39.7 % (35.4-49); HEMOGLOBIN 13.9 GM/dL (11.7-16.9); LYMPH % 20.3 % (8-40); MCH 30.6 pg (25.7-33.7); MCHC 34.9 g/dl (32.0-35.9); MEAN CELL VOLUME 87.7 fl (80-96); MEAN PLT VOLUME 8.4 fl (7.5-11.1); MONO % 11.8 % (3.8-10.2); NEUT % 61.4 % (42.8-82.8); PLATELET COUNT 200 K/MM3 (134-434); RBC 4.53 M/mm3 (4.00-5.60); RDW 13.8 % (11.9-15.9); WHITE BLOOD COUNT 6.7 K/mm3 (4.0-10.0)
[2018-01-31] MEDS ORDERED: METOPROLOL TARTRATE 5 MG/5 ML VIAL ONE (18:14)
[2018-01-31] MEDS ORDERED: PANTOPRAZOLE SODIUM 40 MG VIAL ONE (18:15)
[2018-01-31 18:22] LABS: INR 1.61 (0.82-1.09); PROTHROMBIN TIME (PATIENT) 18.2 SEC (9.98-11.88)
[2018-01-31 18:25] LABS: ACTIVATED PTT 33.7 SECONDS (26.9-34.4)
[2018-01-31 18:36] LABS: ALBUMIN 3.3 g/dl (3.4-5.0); ALK PHOS 98 U/L (45-117); ANION GAP 10 (8-16); BILIRUBIN,TOTAL 0.7 mg/dL (0.2-1.0); BLOOD UREA NITROGEN 19 mg/dL (7-18); CALCIUM 9.3 mg/dL (8.5-10.1); CHLORIDE 101 mmol/L (98-107); CO2 29 mmol/L (21-32); CREATININE 0.7 mg/dL (0.7-1.3); GLUCOSE,RANDOM 96 mg/dL (74-106); SGOT/AST 26 U/L (15-37); SGPT/ALT 17 U/L (12-78); SODIUM 140 mmol/L (136-145); TOT PROT 7.4 g/dl (6.4-8.2)
[2018-01-31] MEDS ORDERED: HEPARIN NA (PORCINE) 5,000 UNITS/ML 1ML VIAL IVPUSH PRN ×2 (20:32)
[2018-01-31] MEDS ORDERED: ACETAMINOPHEN 650 MG SUPP.RECT PR PRN (20:33)
--- NOTE | 2018-01-31 21:06 | HP ---
CHIEF COMPLAINT: GT clogged PCP: Jessica HISTORY OF PRESENT ILLNESS: This is a 77 year old male with a past medical history of Parkinson's disease and CVA x 2 s/p GT placement on 01/23/18 who [place] GT. ED attempted to declog but unable. Pt mostly nonverbal, but pointing to hip and moaning as if in pain. No other indicators of distress noted. Granddaughter is concerned that his antidepressant was discontinued by NH and pt seems more agitated and likely to lash out since. 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), PD, BPH PAST SURGICAL HISTORY: G tube placement 01/23/18 Ing hernia repair left hip fracture s/p ORIF Social History: Smoking: family denies Alcohol: family denies Drugs: family denies Family History: unk Allergies Penicillins Allergy (Verified 01/31/18 16:16) HOME MEDICATIONS: 3 Medication Instructions Recorded Acetaminophen [Tylenol] 325 mg PO TID PRN 01/14/18 Atorvastatin Ca [Lipitor] 40 mg PO HS 01/14/18 Fluticasone Prop 0.05% Nasal 1 spray NS BID 01/14/18 [Flonase -] Nifedipine [Procardia Capsule -] 60 mg GT DAILY 01/14/18 Pantoprazole Sodium [Protonix] 40 mg PO DAILY 01/14/18 Ropinirole HCl [Requip] 0.5 mg PO QID 01/14/18 Tamsulosin HCl [Flomax] 0.4 mg PO DAILY 01/14/18 Bacitracin - [Bacitracin Topical 1 applic TP BID tube 01/27/18 Ointment -] Carbidopa/Levodopa 25/100 [Sinemet 2 each PEG 0700,1100,1500,1900 01/27/18 25100 -] tablet Carvedilol [Coreg -] 25 mg PEG BID tablet 01/27/18 Valsartan [Diovan] 160 mg PEG BID tablet 01/27/18 levETIRAcetam [Keppra Oral 500 mg GT BID cup 01/27/18 Solution -] Warfarin Na [Coumadin -] 6 mg PO DAILY@1800 01/31/18 REVIEW OF SYSTEMS CONSTITUTIONAL: Absent: fever, chills, diaphoresis, generalized weakness, malaise, loss of appetite, weight change HEENT: Absent: rhinorrhea, nasal congestion, throat pain, throat swelling, difficulty swallowing, mouth swelling, ear pain, eye pain, visual changes CARDIOVASCULAR: Absent: chest pain, syncope, palpitations, irregular heart rate, lightheadedness , peripheral edema RESPIRATORY: Absent: cough, shortness of breath, dyspnea with exertion, orthopnea, wheezing, stridor, hemoptysis GASTROINTESTINAL: Absent: abdominal pain, abdominal distension, nausea, vomiting, diarrhea, constipation, melena, hematochezia GENITOURINARY: Absent: dysuria, frequency, urgency, hesitancy, hematuria, flank pain, genital pain MUSCULOSKELETAL: Absent: myalgia, arthralgia, joint swelling, back pain, neck pain SKIN: Absent: rash, itching, pallor HEMATOLOGIC/IMMUNOLOGIC: Absent: easy bleeding, easy bruising, lymphadenopathy, frequent infections ENDOCRINE: Absent: unexplained weight gain, unexplained weight loss, heat intolerance, cold intolerance NEUROLOGIC: Absent: headache, focal weakness or paresthesias, dizziness, unsteady gait, seizure, mental status changes, bladder or bowel incontinence PSYCHIATRIC: Absent: anxiety, depression, suicidal or homicidal ideation, hallucinations. PHYSICAL EXAMINATION Vital Signs - 24 hr 3 01/31/18 01/31/18 01/31/18 16:14 16:28 18:39 Temperature 98.7 F Pulse Rate 90 Pulse Rate [ 102 H Apical] Respiratory 20 20 Rate Blood Pressure 174/96 Blood Pressure 165/113 [Left Arm] O2 Sat by Pulse 100 100 Oximetry (%) 3 01/31/18 01/31/18 18:40 19:54 Temperature Pulse Rate Pulse Rate [ 92 H Apical] Respiratory 20 Rate Blood Pressure 165/113 Blood Pressure 145/109 [Left Arm] O2 Sat by Pulse 100 Oximetry (%) GENERAL: Awake, alert, and fully oriented, in no acute distress. HEAD: Normal with no signs of trauma. EYES: Pupils equal, round and reactive to light, extraocular movements intact, sclera anicteric, conjunctiva clear. No lid lag. EARS, NOSE, THROAT: Ears normal, nares patent, oropharynx clear without exudates. Dry mucous membranes. NECK: Normal range of motion, supple without lymphadenopathy, JVD, or masses. LUNGS: Breath sounds equal, clear to auscultation bilaterally. No wheezes, and no crackles. No accessory muscle use. HEART: Regular rate and rhythm, normal S1 and S2 without murmur, rub or gallop. ABDOMEN: Soft, nontender, not distended, normoactive bowel sounds, no guarding, no rebound, no masses. No hepatomegaly or splenomegaly. GT in place, Buttons in place on either side. No erythema or discharge. MUSCULOSKELETAL: Normal range of motion at all joints. No bony deformities or tenderness. No CVA tenderness. UPPER EXTREMITIES: 2+ pulses, warm, well-perfused. No cyanosis. No clubbing. No peripheral edema. LOWER EXTREMITIES: 2+ pulses, warm, well-perfused. No calf tenderness. No peripheral edema. FROM right hip NEUROLOGICAL: Cranial nerves II-XII intact. Normal speech. Normal gait. PSYCHIATRIC: Cooperative. Good eye contact. Appropriate mood and affect. SKIN: Warm, dry, normal turgor, no rashes or lesions noted, normal capillary refill. Laboratory Results - last 24 hr 3 01/31/18 01/31/18 01/31/18 18:06 18:06 18:06 WBC 6.7 RBC 4.53 Hgb 13.9 D Hct 39.7 MCV 87.7 MCH 30.6 MCHC 34.9 RDW 13.8 Plt Count 200 D MPV 8.4 Neutrophils % 61.4 Lymphocytes % 20.3 D Monocytes % 11.8 H Eosinophils % 6.0 H Basophils % 0.5 PT with INR 18.20 H INR 1.61 H D PTT (Actin FS) 33.7 Sodium 140 Potassium 4.0 Chloride 101 Carbon Dioxide 29 D Anion Gap 10 BUN 19 H D Creatinine 0.7 Creat Clearance w eGFR > 60 Random Glucose 96 Calcium 9.3 Total Bilirubin 0.7 D AST 26 ALT 17 D Alkaline Phosphatase 98 Total Protein 7.4 Albumin 3.3 L ECG atrial fibrillation Vent rate 82, QTC [address]/T wave changes ASSESSMENT/PLAN: 77yM with PMH HTN, HLD, Afib on coumadin, 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 Clogged GT - gi consult - NPO for now - D5/NS @ 75cc/hr - change PO meds to IV or OR where possible HTN - will give lopressor 5mg Q6h with hold parameters - Can add IV enalapril or hydralazine if ineffective as solo med Afib - INR subtherapeutic in pt with recent CVA who needs upcoming procedure - will start heparin drip as can be turned off easily in anticipation of procedure - Metoprolol IV for rate control PD - unable to give po meds. Discussed option of NGT with daughter but she reports pt attempted to pull many times the last time he had one - will give benadryl to assist with sleep FEN - D5NS @ 75 cc/hr - BMP in am - NPO Dispo: Pt admitted for further observation/GT replacement. Visit type - Emergency Visit Emergency Visit: Yes ED Registration Date: 01/31/18 Care time: The patient presented to the Emergency Department on the above date and was hospitalized for further evaluation of their emergent condition. - New Patient This patient is new to me today: Yes Date on this admission: 01/31/18 - Critical Care Critical Care patient: No Hospitalist Screening - Colonoscopy Questionnaire Colonoscopy Questionnaire: Colonoscopy Questionnaire - Patient: 50 - 75 years old and never had a screening colonoscopy: No History of colon or rectal polyps, or CA: No History of IBD, Crohn's disease or UC: No History of abdominal radiation therapy as a child: No - Relative: 1 with colon or rectal CA, or polyps at age 60 or younger: Unknown Colon or rectal CA diagnosed at age 45 or younger: Unknown Multiple relatives with colon or rectal CA: Unknown - Outcome: Screening Result: Negative Screen
[2018-01-31] MEDS: DEXTROSE 5%-NORMAL SALINE 1,000 ML IV SCH (22:27)
[2018-02-01] MEDS: HEPARIN INFUSION - 25,000 UNITS/500 ML INFUS.BAG IVPB SCH ×2 (00:12→20:45)
[2018-02-01] MEDS: METOPROLOL TARTRATE 5 MG/5 ML VIAL IVPUSH SCH ×4 (00:13→17:28)
[2018-02-01 08:41] LABS: HEMATOCRIT 36.6 % (35.4-49); HEMOGLOBIN 12.9 GM/dL (11.7-16.9); MCH 31.3 pg (25.7-33.7); MCHC 35.2 g/dl (32.0-35.9); MEAN PLT VOLUME 8.6 fl (7.5-11.1); PLATELET COUNT 184 K/MM3 (134-434); RBC 4.11 M/mm3 (4.00-5.60); RDW 13.7 % (11.9-15.9)
[2018-02-01 08:48] LABS: ANION GAP 6 (8-16); BLOOD UREA NITROGEN 15 mg/dL (7-18); CALCIUM 8.3 mg/dL (8.5-10.1); CHLORIDE 105 mmol/L (98-107); CO2 29 mmol/L (21-32); CREATININE 0.8 mg/dL (0.7-1.3); GLUCOSE,RANDOM 100 mg/dL (74-106); MAGNESIUM 1.8 mg/dL (1.8-2.4); PHOSPHOROUS 3.8 mg/dL (2.5-4.9); POTASSIUM 3.4 mmol/L (3.5-5.1); SODIUM 140 mmol/L (136-145)
[2018-02-01] MEDS: levETIRAcetam 500 MG/5 ML INJECTION VIAL IVPB SCH ×2 (09:18→21:34)
--- NOTE | 2018-02-01 11:55 | PN ---
Progress Note, Physician - Current Medication List Current Medications: Active Medications Acetaminophen (Tylenol Suppository -) 650 mg [place] Q6H PRN PRN Reason: PAIN Last Admin: 01/31/18 22:29 Dose: 650 mg Diphenhydramine HCl (Benadryl Injection -) 25 mg IVPUSH HS MIGUE Last Admin: 01/31/18 23:30 Dose: 25 mg Heparin Sodium (Porcine) (Heparin -) 1,000 unit IVPUSH PRN PRN PRN Reason: Heparin Heparin Sodium (Porcine) (Heparin -) 5,000 unit IVPUSH PRN PRN PRN Reason: Heparin Heparin Sodium/Dextrose (Heparin Infusion -) 25,000 units in 500 mls @ 16 mls/ hr IVPB TITR MIGUE; 800 UNITS/HR PRN Reason: Protocol Last Admin: 02/01/18 00:12 Dose: 800 units/hr, 16 mls/hr Dextrose/Sodium Chloride (D5-Ns -) 1,000 mls @ 75 mls/hr IV ASDIR [facility] Last Admin: 01/31/18 22:27 Dose: 75 mls/hr Levetiracetam (Keppra Injection -) 500 mg IVPB BID [facility] Last Admin: 02/01/18 09:18 Dose: 500 mg Metoprolol Tartrate (Lopressor Injection -) 5 mg IVPUSH Q6H MIGUE Last Admin: 02/01/18 06:39 Dose: 5 mg - Objective Vital Signs: Vital Signs Temperature 97.8 F 02/01/18 06:00 Pulse Rate 95 H 02/01/18 06:39 Respiratory Rate 18 02/01/18 06:00 Blood Pressure 163/96 02/01/18 06:39 O2 Sat by Pulse Oximetry (%) 100 02/01/18 05:37 Cardiovascular: Yes: S1, S2 Respiratory: Yes: Regular, CTA Bilaterally Gastrointestinal: Yes: Normal Bowel Sounds, Soft. No: Tenderness Labs: CBC, BMP 02/01/18 08:00 02/01/18 08:00 INR, PTT INR 1.61 (0.82-1.09) H D 01/31/18 18:06 Problem List - Problems (1) PEG tube malfunction Assessment/Plan: - Gi consult - NPO for now - D5/NS @ 75cc/hr - change PO meds to IV or [place] where possible Code(s): K94.23 - GASTROSTOMY MALFUNCTION (2) Atrial fibrillation Assessment/Plan: - INR subtherapeutic in pt with recent CVA who needs upcoming procedure - will start heparin drip as can be turned off easily in anticipation of procedure - Metoprolol IV for rate control Code(s): I48.91 - UNSPECIFIED ATRIAL FIBRILLATION Qualifiers: Atrial fibrillation type: persistent Qualified Code(s): I48.1 - Persistent atrial fibrillation (3) Hypertension Assessment/Plan: - will give lopressor 5mg Q6h with hold parameters - Can add IV enalapril or hydralazine if ineffective as solo med Code(s): I10 - ESSENTIAL (PRIMARY) HYPERTENSION Qualifiers: Hypertension type: essential hypertension Qualified Code(s): I10 - Essential (primary) hypertension
--- NOTE | 2018-02-01 16:00 | PN ---
Progress Note (short form) - Note Progress Note: GI CONSULT FOR DR LANIER: PLEASE SEE FULL CONSULT DICTATION ALTHOUT PT KNOWN TO DR LANIER, THE PT HAD A GT PLACED NON-ENDOSCOPICALLY BY THE IR-TEAM. THE GT WAS PLACED 3/2 AND DOUBT THAT A TRACT HAS FORMED AND THEREFORE, I WOULD HESISTATE TO PULL THIS OUT. ALSO, A GASTRO, WE ARE NOT FAMILIAR WITH THIS TYPE OF GT AND IF IT NEEDS TO BE PULLED, IT SHOULD BE DONE BY THE IR-TEAM. I HAVE TRIED REPEATEDLY TO IRRIGATE THE TUBE---HOWEVER, IT IS COMPLETELY CLOGGED RECOMMENDATIONS: PLEASE CONSULT IR-TEAM TO ASSESS THE GT AND SEE IF IT CAN BE PERC. PULLED AND REPLACED AFTER 10 DAYS? IF PT NEEDS FEEDS/ OR MEDS UNTIL THEN, THEN I WOULD STRONGLY ADVISE AN NGT FOR NGT FEEDS THANKSPINEDA MD
--- NOTE | 2018-02-01 18:27 | CONS ---
DATE OF CONSULTATION: 02/01/2018 This consult is for Dr. Blaine Cullen. This is in coverage for Dr. Cullen by Dr. Sung on February 01, 2018. We were asked for Dr. Cullen to see the patient for evaluation of G-tube malfunction. The patient is a 77-year-old male who is unable to elicit any medical history at this time. Apparently he was here at [facility] and underwent a PEG tube placed by the radiologist on January 23. Dr. May was then called to see the patient 3 days later for abdominal discomfort, distention, and question of bleeding. When he saw the patient, it was noted the patient is nonverbal but awake and alert, not in distress. The abdomen was distended but soft. The G-tube appeared to be in place and intact and there was some large amount of formed brown stool noted. An x-ray was obtained that revealed no significant findings, and gastric lavage via G-tube with 500 mL of water revealed clear with trace of bile return, no coffee-ground or bleeding. Thus, when Dr. Cullen saw the patient, the hemoglobin was 13.3, hematocrit 38. He did not believe there was any ongoing bleeding and felt it was okay to use a G-tube for hydration, medications, and nutrition. At that time, it was noted the patient's past medical history of atrial fibrillation, hypertension, hyperlipidemia, Parkinson disease, status post CVA, and he had a joint replacement in the past. The patient does not smoke or drink. He came in from the residential. The patient was on Tylenol, Lipitor, Sinemet, Coreg, fluticasone, levetiracetam, nifedipine, Protonix, Requip, Flomax, valsartan, and Coumadin. Apparently now the patient comes in back to the hospital apparently 6 days later for report at the residential that the G-tube is clogged and not working. In the emergency room, the G-tube was attempted to be unclogged by the emergency room physician; however, it could not be unclogged and therefore the patient was admitted for evaluation. Again, the patient cannot elicit any history. He awakens by manual palpation or stimuli but he is completely non-conversant. There are no reports of any abdominal pain, nausea, vomiting, fevers, chills, sweats, change in bowel, bleeding, or pain at this time. The patient's medications that he comes in on are pretty much all the same: Tylenol, Lipitor, Flonase, Procardia, Protonix, Requip, Flomax, Sinemet, Coreg, Diovan, Keppra, and again, Coumadin. He is noted to be allergic to PENICILLIN. The patient does not smoke or drink. He came in, again, from the residential. On physical exam, the patient is in no acute distress. He is markedly cachectic in appearance, elderly. His mouth is extremely dry. His dentition is poor. His neck is supple. His abdomen is thin, flat. Bowel sounds are heard. There is no tenderness to palpation whatsoever. He has a G-tube in site but it is not one that we are familiar with. It is not a routine gastrostomy that is placed endoscopically. There are a couple of retention sutures that I am not familiar with. I tried to irrigate the G-tube clear at the bedside several times and unable to. It is completely clogged up and the patient needs to a new G tube placed. Now it has only been 10 days since the underlying G-tube was placed so I am not certain it would be safe to pull it, because I do not believe a tract has been formed at this time, so one option is to allow the patient to get NG tube feeds, remain with the G-tube in situ for another couple of days, such that the tract forms, and then it can be pulled by the radiologist who placed it and another one could be placed percutaneously. Otherwise, the patient may need a new G-tube, but, however, we did not place this, it was not placed by Gastroenterology, and therefore, I would have the interventional radiologic team evaluate it because we are unfamiliar with removing G-tubes that have retention sutures, so at this time my recommendation would be to call the interventional radiologist, Dr. Bolanos. If the patient needs feeds until then, I would strongly recommend NG tube feeding. MIGUEL SUNG M.D. [facility]/[id number]
[2018-02-01] MEDS: DEXTROSE 5%-NORMAL SALINE 1,000 ML IV SCH (18:28)
--- NOTE | 2018-02-01 20:04 | EKG ---
Test Reason : Blood Pressure : / mmHG Vent. Rate : 082 BPM Atrial Rate : 078 BPM P-R Int : 000 ms QRS Dur : 084 ms QT Int : 364 ms P-R-T Axes : 000 074 046 degrees QTc Int : 425 ms ATRIAL FIBRILLATION VOLTAGE CRITERIA FOR LEFT VENTRICULAR HYPERTROPHY SEPTAL INFARCT (CITED ON OR BEFORE 14-JAN-2018) ABNORMAL ECG WHEN COMPARED WITH ECG OF 14-JAN-2018 16:49, VENT. RATE HAS DECREASED T WAVE VARIATION Confirmed by ELVIA CARTAGENA MD ([id number]) on 02/01/2018 8:03:28 PM Referred By: Confirmed By:ELVIA CARTAGENA MD
[2018-02-02] MEDS: METOPROLOL TARTRATE 5 MG/5 ML VIAL IVPUSH SCH ×5 (00:32→21:55)
[2018-02-02 08:32] LABS: HEMATOCRIT 36.2 % (35.4-49); HEMOGLOBIN 12.7 GM/dL (11.7-16.9); MCH 30.7 pg (25.7-33.7); MCHC 35.1 g/dl (32.0-35.9); MEAN CELL VOLUME 87.4 fl (80-96); PLATELET COUNT 189 K/MM3 (134-434); RBC 4.14 M/mm3 (4.00-5.60); RDW 13.7 % (11.9-15.9); WHITE BLOOD COUNT 7.2 K/mm3 (4.0-10.0)
[2018-02-02] MEDS: levETIRAcetam 500 MG/5 ML INJECTION VIAL IVPB SCH ×2 (12:01→21:56)
--- NOTE | 2018-02-02 12:03 | PN ---
Progress Note, Physician Chief Complaint: patient just came back from IR s/p peg tube replacement on heparin drip will restart coumadin tonight - Current Medication List Current Medications: Active Medications Acetaminophen (Tylenol Suppository -) 650 mg [place] Q6H PRN PRN Reason: PAIN Last Admin: 01/31/18 22:29 Dose: 650 mg Diphenhydramine HCl (Benadryl Injection -) 25 mg IVPUSH HS MIGUE Last Admin: 02/01/18 21:34 Dose: 25 mg Heparin Sodium (Porcine) (Heparin -) 1,000 unit IVPUSH PRN PRN PRN Reason: Heparin Heparin Sodium (Porcine) (Heparin -) 5,000 unit IVPUSH PRN PRN PRN Reason: Heparin Heparin Sodium/Dextrose (Heparin Infusion -) 25,000 units in 500 mls @ 16 mls/ hr IVPB TITR MIGUE; 800 UNITS/HR PRN Reason: Protocol Last Admin: 02/01/18 20:45 Dose: Not Given Dextrose/Sodium Chloride (D5-Ns -) 1,000 mls @ 75 mls/hr IV ASDIR MIGUE Last Admin: 02/01/18 18:28 Dose: 75 mls/hr Levetiracetam (Keppra Injection -) 500 mg IVPB BID MIGUE Last Admin: 02/01/18 21:34 Dose: 500 mg Metoprolol Tartrate (Lopressor Injection -) 5 mg IVPUSH Q6H MIGUE Last Admin: 02/02/18 06:11 Dose: 5 mg - Objective Vital Signs: Vital Signs Temperature 98.3 F 02/02/18 09:44 Pulse Rate 84 02/02/18 09:44 Respiratory Rate 20 02/02/18 09:44 Blood Pressure 192/87 02/02/18 09:44 O2 Sat by Pulse Oximetry (%) 100 02/01/18 21:00 Labs: CBC, BMP 02/02/18 08:00 02/01/18 08:00 INR, PTT INR 1.61 (0.82-1.09) H D 01/31/18 18:06 Problem List - Problems (1) PEG tube malfunction Assessment/Plan: s/p peg tube replacement restart tube feeds Code(s): K94.23 - GASTROSTOMY MALFUNCTION (2) Atrial fibrillation Assessment/Plan: give coumadin 5mg tonight check INR in am Code(s): I48.91 - UNSPECIFIED ATRIAL FIBRILLATION Qualifiers: Atrial fibrillation type: persistent Qualified Code(s): I48.1 - Persistent atrial fibrillation Assessment/Plan dc back to [place]
--- NOTE | 2018-02-02 12:10 | DS ---
Physical Examination Vital Signs: Vital Signs Temperature 98.3 F 02/02/18 09:44 Pulse Rate 84 02/02/18 09:44 Respiratory Rate 20 02/02/18 09:44 Blood Pressure 192/87 02/02/18 09:44 O2 Sat by Pulse Oximetry (%) 100 02/01/18 21:00 Constitutional: Yes: Calm Neck: Yes: Trachea Midline Cardiovascular: Yes: Regular Rate and Rhythm, S1, S2 Respiratory: Yes: CTA Bilaterally, Diminished (at bases) Gastrointestinal: Yes: Normal Bowel Sounds, Soft, Other (peg tube) Edema: No Neurological: Yes: Alert Labs: CBC, BMP 02/02/18 08:00 02/01/18 08:00 Discharge Summary Reason For Visit: MALFUNCTION OF PERCUTANEOUS ENDOSCOPIC GASTROSTOMY Current Active Problems PEG tube malfunction (Acute) Hospital Course: CHIEF COMPLAINT: GT clogged PCP: Jessica HISTORY OF PRESENT ILLNESS: This is a 77 year old male with a past medical history of Parkinson's disease and CVA x 2 s/p GT placement on 01/23/18 who presented from the NH with clogged GT. ED attempted to declog but unable. Pt mostly nonverbal, but pointing to hip and moaning as if in pain. No other indicators of distress noted. Granddaughter is concerned that his antidepressant was discontinued by NH and pt seems more agitated and likely to lash out since. ER course was notable for: (1) labs WNL (2) attempts to declog GT failed seen by GI not able to declog the tube went down to IR to get the tube replaced was put on heparin drip, couamdin on hold will restart coumadin tonight Condition: Stable - Instructions Diet, Activity, Other Instructions: restart tube feeds give couamdin 5mg tonight check INR on [facility] fridayfebruary 03 Referrals: Nava Lopez MD [Primary Care Provider] - Disposition: [facility] - Home Medications Comprehensive Discharge Medication List: Ambulatory Orders Acetaminophen [Tylenol] 325 mg PO TID PRN 01/14/18 Atorvastatin Ca [Lipitor] 40 mg PO HS 01/14/18 Fluticasone Prop 0.05% Nasal [Flonase -] 1 spray NS BID 01/14/18 Nifedipine [Procardia Capsule -] 60 mg GT DAILY 01/14/18 Pantoprazole Sodium [Protonix] 40 mg PO DAILY 01/14/18 Ropinirole HCl [Requip] 0.5 mg PO QID 01/14/18 Tamsulosin HCl [Flomax] 0.4 mg PO DAILY 01/14/18 Bacitracin - [Bacitracin Topical Ointment -] 1 applic TP BID tube 01/27/18 Carbidopa/Levodopa 25/100 [Sinemet 25/100 -] 2 each PEG 0700,1100,1500,1900 tablet 01/27/18 Carvedilol [Coreg -] 25 mg PEG BID tablet 01/27/18 Valsartan [Diovan] 160 mg PEG BID tablet 01/27/18 levETIRAcetam [Keppra Oral Solution -] 500 mg GT BID cup 01/27/18 Warfarin Na [Coumadin -] 6 mg PO DAILY@1800 01/31/18
[2018-02-02 12:20] LABS: ANION GAP 8 (8-16); BLOOD UREA NITROGEN 9 mg/dL (7-18); CALCIUM 8.1 mg/dL (8.5-10.1); CHLORIDE 107 mmol/L (98-107); CO2 26 mmol/L (21-32); CREATININE 0.7 mg/dL (0.7-1.3); GLUCOSE,RANDOM 83 mg/dL (74-106); POTASSIUM 3.4 mmol/L (3.5-5.1); SODIUM 141 mmol/L (136-145)
[2018-02-02] MEDS: DEXTROSE 5%-NORMAL SALINE 1,000 ML IV SCH (12:29)
[2018-02-02 13:25] LABS: INR 1.5 (0.82-1.09)
[2018-02-02] MEDS ORDERED: WARFARIN NA 5 MG TABLET (UD) PO SCH (18:00)
[2018-02-02] MEDS ORDERED: METOPROLOL TARTRATE 5 MG/5 ML VIAL IVPUSH ONE (20:15)
[2018-02-02] MEDS: VALSARTAN 80 MG TABLET (UD) NR SCH (21:55)
[2018-02-02] MEDS: WARFARIN NA 3 MG TABLET PO SCH (21:55)
[2018-02-02] MEDS ORDERED: VALSARTAN 160 MG TABLET (UD) GT SCH (22:00)
[2018-02-03] MEDS: METOPROLOL TARTRATE 5 MG/5 ML VIAL IVPUSH SCH ×3 (02:38→09:08)
[2018-02-03 08:26] LABS: HEMOGLOBIN 13.5 GM/dL (11.7-16.9); MCH 30.2 pg (25.7-33.7); MCHC 34.5 g/dl (32.0-35.9); MEAN CELL VOLUME 87.6 fl (80-96); MEAN PLT VOLUME 8.3 fl (7.5-11.1); PLATELET COUNT 193 K/MM3 (134-434); RBC 4.45 M/mm3 (4.00-5.60); RDW 14.1 % (11.9-15.9)
[2018-02-03 09:05] LABS: INR 1.5 (0.82-1.09); PROTHROMBIN TIME (PATIENT) 16.9 SEC (9.98-11.88)
[2018-02-03] MEDS: VALSARTAN 80 MG TABLET (UD) NR SCH ×2 (09:09→22:37)
[2018-02-03] MEDS: levETIRAcetam 500 MG/5 ML INJECTION VIAL IVPB SCH (10:31)
--- NOTE | 2018-02-03 10:55 | PN ---
Progress Note, Physician Chief Complaint: restarted tube feeds today was ready to get discharge but BP 180/110 meds ordered will hold discharge awake alert family at bedside - Current Medication List Current Medications: Active Medications Acetaminophen (Tylenol Suppository -) 650 mg HI Q6H PRN PRN Reason: PAIN Last Admin: 01/31/18 22:29 Dose: 650 mg Atorvastatin Calcium (Lipitor -) 40 mg PO HS [facility] Carvedilol (Coreg -) 25 mg GT BID [facility] Diphenhydramine HCl (Benadryl Injection -) 25 mg IVPUSH HS [facility] Last Admin: 02/02/18 21:54 Dose: 25 mg Levetiracetam (Keppra Oral Solution -) 500 mg GT BID [facility] Nifedipine (Procardia Xl -) 60 mg PO DAILY [facility] Ropinirole HCl (Requip -) 0.5 mg PO TID [facility] Valsartan (Diovan -) 160 mg NR BID [facility] Last Admin: 02/03/18 09:09 Dose: 160 mg Warfarin Sodium (Coumadin -) 6 mg PO DAILY@1800 [facility] Last Admin: 02/02/18 21:55 Dose: 6 mg - Objective Vital Signs: Vital Signs Temperature 97.8 F 02/03/18 09:00 Pulse Rate 82 02/03/18 09:22 Respiratory Rate 20 02/03/18 09:00 Blood Pressure 176/100 02/03/18 09:22 O2 Sat by Pulse Oximetry (%) 100 02/01/18 21:00 Constitutional: Yes: Calm Cardiovascular: Yes: Regular Rate and Rhythm, S1, S2 Respiratory: Yes: CTA Bilaterally, Diminished (at the bases) Gastrointestinal: Yes: Normal Bowel Sounds, Soft, Other (g tube) Edema: No Neurological: Yes: Alert Labs: CBC, BMP 02/03/18 07:00 02/02/18 12:05 INR, PTT INR 1.50 (0.82-1.09) H 02/03/18 07:30 Problem List - Problems (1) Hypertension Assessment/Plan: restart procardia ,coreg, and diovan Code(s): I10 - ESSENTIAL (PRIMARY) HYPERTENSION Qualifiers: Hypertension type: essential hypertension Qualified Code(s): I10 - Essential (primary) hypertension (2) PEG tube malfunction Assessment/Plan: s/p peg tube replacement restart tube feeds Code(s): K94.23 - GASTROSTOMY MALFUNCTION (3) Atrial fibrillation Assessment/Plan: give coumadin 6mg INR noted coreg Code(s): I48.91 - UNSPECIFIED ATRIAL FIBRILLATION Qualifiers: Atrial fibrillation type: persistent Qualified Code(s): I48.1 - Persistent atrial fibrillation (4) DVT prophylaxis Assessment/Plan: warfarin Code(s): BBT7614 - (5) Hypercholesterolemia Assessment/Plan: statin Code(s): E78.00 - PURE HYPERCHOLESTEROLEMIA, UNSPECIFIED (6) Parkinson disease Assessment/Plan: sinemet Code(s): G20 - PARKINSON'S DISEASE
[2018-02-03] MEDS ORDERED: NIFEdipine E.R 60 MG TABLET (UD) PO SCH (11:00)
[2018-02-03] MEDS ORDERED: amLODIPine BESYLATE 10 MG TABLET (FP) PO SCH (11:45)
[2018-02-03] MEDS: amLODIPine BESYLATE 10 MG TABLET (FP) GT SCH (12:13)
[2018-02-03] MEDS: CARVEDILOL 25 MG TABLET (FP) GT SCH ×2 (12:13→22:37)
[2018-02-03] MEDS: rOPINIRole HCL 0.5 MG TABLET NR SCH ×2 (14:43→22:39)
[2018-02-03] MEDS: CARBIDOPA/LEVODOPA 25/100 TABLET (FP) GT SCH ×3 (14:43→22:37)
[2018-02-03] MEDS: WARFARIN NA 3 MG TABLET PO SCH (18:26)
[2018-02-03] MEDS ORDERED: PT OWN MED DRAWER 7, Y5N ONE (21:27)
[2018-02-03] MEDS ORDERED: ATORVASTATIN CA 40 MG TABLET (FP) GT SCH (22:00)
[2018-02-03] MEDS: levETIRAcetam 500 MG/5 ML ORAL SOLUTION (UNIT-DOSE CUPS) GT SCH (22:37)
[2018-02-04] MEDS: rOPINIRole HCL 0.5 MG TABLET NR SCH ×2 (05:50→13:23)
[2018-02-04 05:59] VITALS: PULSE 93
[2018-02-04 08:02] LABS: PROTHROMBIN TIME (PATIENT) 22.6 SEC (9.98-11.88)
[2018-02-04] MEDS ORDERED: PT OWN MED DRAWER 7, Y5N ONE (09:28)
[2018-02-04] MEDS: CARBIDOPA/LEVODOPA 25/100 TABLET (FP) GT SCH ×2 (09:33→13:23)
[2018-02-04] MEDS: CARVEDILOL 25 MG TABLET (FP) GT SCH (09:33)
[2018-02-04] MEDS: levETIRAcetam 500 MG/5 ML ORAL SOLUTION (UNIT-DOSE CUPS) GT SCH (09:33)
[2018-02-04] MEDS: VALSARTAN 80 MG TABLET (UD) NR SCH (09:33)
[2018-02-04] MEDS: amLODIPine BESYLATE 10 MG TABLET (FP) GT SCH (09:33)
[2018-02-04 10:18] VITALS: BP 155/87
--- NOTE | 2018-02-04 10:59 | PN ---
Progress Note, Physician Chief Complaint: PEG obstruction History of Present Illness: NAD feeding restarted medication restarted BP elevated 2/2 to not being able to get his Parkinson's meds, same tissue happened last admission - Current Medication List Current Medications: Active Medications Acetaminophen (Tylenol Suppository -) 650 mg VT Q6H PRN PRN Reason: PAIN Last Admin: 01/31/18 22:29 Dose: 650 mg Amlodipine Besylate (Norvasc -) 10 mg GT DAILY [facility] Last Admin: 02/04/18 09:33 Dose: 10 mg Atorvastatin Calcium (Lipitor -) 40 mg GT [facility] Last Admin: 02/03/18 22:37 Dose: 40 mg Carbidopa/Levodopa (Sinemet 25/100 -) 1 each GT QID [facility] Last Admin: 02/04/18 09:33 Dose: 1 each Carvedilol (Coreg -) 25 mg GT BID [facility] Last Admin: 02/04/18 09:33 Dose: 25 mg Diphenhydramine HCl (Benadryl Injection -) 25 mg IVPUSH [facility] Last Admin: 02/03/18 22:37 Dose: 25 mg Levetiracetam (Keppra Oral Solution -) 500 mg GT BID [facility] Last Admin: 02/04/18 09:33 Dose: 500 mg Ropinirole HCl (Requip -) 0.5 mg NR TID [facility] Last Admin: 02/04/18 05:50 Dose: 0.5 mg Valsartan (Diovan -) 160 mg NR BID [facility] Last Admin: 02/04/18 09:33 Dose: 160 mg Warfarin Sodium (Coumadin -) 6 mg PO DAILY@1800 [facility] Last Admin: 02/03/18 18:26 Dose: 6 mg - Objective Vital Signs: Vital Signs Temperature 98.1 F 02/04/18 10:00 Pulse Rate 93 H 02/04/18 10:00 Respiratory Rate 20 02/04/18 10:00 Blood Pressure 155/87 02/04/18 10:00 O2 Sat by Pulse Oximetry (%) 100 02/01/18 21:00 Constitutional: Yes: Well Nourished, No Distress, Calm Cardiovascular: Yes: Pulse Irregular Respiratory: Yes: Regular Gastrointestinal: Yes: Normal Bowel Sounds, Soft, Other (PEG) Musculoskeletal: Yes: Muscle Weakness Extremities: Yes: WNL Edema: No Peripheral Pulses WNL: Yes Neurological: Yes: Alert, Pre-Existing Deficit Psychiatric: Yes: Alert Labs: CBC, BMP 02/02/18 12:05 INR, PTT INR 2.00 (0.82-1.09) H D 02/04/18 07:06 Problem List - Problems (1) Episode of hypertension Assessment/Plan: -2/2 to not being able to get his Parkinson's medication -BP normalized now -D/C to SNF Code(s): I10 - ESSENTIAL (PRIMARY) HYPERTENSION (2) Parkinson disease Assessment/Plan: -chronic Code(s): G20 - PARKINSON'S DISEASE (3) Atrial fibrillation Assessment/Plan: -on warfarin 6 mg daily -check INR in 1 week Code(s): I48.91 - UNSPECIFIED ATRIAL FIBRILLATION Qualifiers: Atrial fibrillation type: persistent Qualified Code(s): I48.1 - Persistent atrial fibrillation Assessment/Plan see problem list Spoke to pt at bedside
[2018-02-04 11:22] LABS: HEMATOCRIT 37.6 % (35.4-49); HEMOGLOBIN 13.4 GM/dL (11.7-16.9); MCH 31.3 pg (25.7-33.7); MCHC 35.8 g/dl (32.0-35.9); MEAN CELL VOLUME 87.4 fl (80-96); MEAN PLT VOLUME 8.3 fl (7.5-11.1); PLATELET COUNT 198 K/MM3 (134-434); RDW 13.9 % (11.9-15.9); WHITE BLOOD COUNT 7.8 K/mm3 (4.0-10.0)
[2018-02-04 15:03] VITALS: TEMP 98.3
== END 2018-02-04 15:00 | DRG 394 ==
LOC: JER 16:00 → JERBED 19:19 → J6S 20:22 → OBSVTOIN 02-04 11:19
PROVIDERS: ADMIT Internal Medicine; ATTEND Family Medicine
PROC: 0D20XUZ Change Feeding Device in Upper Intestinal Tract, External Approach (ICD-10-PCS; principal; 2018-02-02)
PROC: BW11ZZZ Fluoroscopy of Abdomen and Pelvis (ICD-10-PCS; 2018-02-04)
DX: K94.23 Gastrostomy malfunction (principal); E44.0 Moderate protein-calorie malnutrition; Y83.3 Surgical operation with formation of external stoma as the cause of abnormal reaction of the patient, or of later complication, without mention of misadventure at the time of the procedure; Y92.122 Bedroom in nursing home as the place of occurrence of the external cause; I10 Essential (primary) hypertension; Z86.73 Personal history of transient ischemic attack (TIA), and cerebral infarction without residual deficits; G20 Parkinson's disease; F02.80 Dementia in other diseases classified elsewhere, unspecified severity, without behavioral disturbance, psychotic disturbance, mood disturbance, and anxiety; I48.91 Unspecified atrial fibrillation; Z79.01 Long term (current) use of anticoagulants; N40.0 Benign prostatic hyperplasia without lower urinary tract symptoms
CPT/HCPCS: 36415; 49450; 71045-TC-FY; 76000-TC-FY; 80048; 80053; 83735; 84100; 85025; 85027; 85610; 85730; 93005; 93010; 99284-25; C1769; G0378; J1644; J7030

== ENCOUNTER 2018-03-17 00:40 | Inpatient (IN) | payer MEDICARE, OTHER ==
--- NOTE | 2018-03-17 00:54 | PDOC ---
History of Present Illness - General Chief Complaint: Psychiatric Stated Complaint: AGITATION History Source: Family, Care Home Records Exam Limitations: No Limitations - History of Present Illness Initial Comments: 03/17/18 01:04 Patient was agitated and confused and unable to provide reliable information. 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 Pt was noted by the relatives to have increasing hallucinations over the past couple of days. This am, the pt was given zoloft at 100mg for for agitation, with INR noted to be supratherapeutic at 4.1 (with warfarin held for 2 days), but alert despite being confused and agitated. There was no record of head trauma, although patient was noted to have kept trying to get out of bed. Family by the bedside explained that patient wanted to leave the hospital/ [facility] (unclear). The family is unaware of any other symptoms, including fever, hematuria or chest pain. 03/17/18 01:39 03/17/18 01:51 Timing/Duration: getting worse Severity: moderate Past History - Travel Traveled outside of the country in the last 30 days: No Close contact w/someone who was outside of country & ill: No - Past Medical History Allergies/Adverse Reactions: Allergies Allergy/AdvReac Type Severity Reaction Status Date / Time Penicillins Allergy Verified 03/17/18 00:43 Home Medications: Ambulatory Orders Acetaminophen [Tylenol] 325 mg PO TID PRN 01/14/18 Atorvastatin Ca [Lipitor] 40 mg PO HS 01/14/18 Fluticasone Prop 0.05% Nasal [Flonase -] 1 spray NS BID 01/14/18 Nifedipine [Procardia -] 60 mg GT DAILY 01/14/18 Pantoprazole Sodium [Protonix] 40 mg PO DAILY 01/14/18 Ropinirole HCl [Requip] 0.5 mg PO QID 01/14/18 Tamsulosin HCl [Flomax] 0.4 mg PO DAILY 01/14/18 Bacitracin - [Bacitracin Topical Ointment -] 1 applic TP BID tube 01/27/18 Carbidopa/Levodopa 25/100 [Sinemet 25/100 -] 2 each PEG 0700,1100,1500,1900 tablet 01/27/18 Carvedilol [Coreg -] 25 mg PEG BID tablet 01/27/18 Valsartan [Diovan] 160 mg PEG BID tablet 01/27/18 levETIRAcetam [Keppra Oral Solution -] 500 mg GT BID cup 01/27/18 Warfarin Na [Coumadin -] 6 mg PO DAILY@1800 01/31/18 Cardiac Disorders: Yes (afib) CVA: Yes COPD: No GI Disorders: (GI BLEED) Disorders: Yes (BPH) HTN: Yes Hypercholesterolemia: Yes Seizures: Yes - Surgical History Abdominal Surgery: Yes (ING HERNIA) - Suicide/Smoking/Psychosocial Hx Smoking History: Unknown if ever smoked Have you smoked in the past 12 months: No Information on smoking cessation initiated: No Hx Alcohol Use: No Drug/Substance Use Hx: No Substance Use Type: None Hx Substance Use Treatment: No Review of Systems - Review of Systems Able to Perform ROS?: No (Patient is agitated) Is the patient limited Welsh proficient: Yes Constitutional: No: Fever *Physical Exam - Vital Signs Last Vital Signs Temp Pulse Resp BP Pulse Ox 97.6 F 102 H 18 98/72 99 03/17/18 00:43 03/17/18 00:43 03/17/18 00:43 03/17/18 00:43 03/17/18 00:43 - Physical Exam General Appearance: Yes: Thin HEENT: positive: Other (Blood stained lips and tongue, blood smeared forehead about 4mm, dry mucus membrane) Neck: positive: Supple Respiratory/Chest: positive: Decreased Breath Sounds. negative: Respiratory Distress, Accessory Muscle Use, Labored Respiration Cardiovascular: positive: S1, S2, Irregular Gastrointestinal/Abdominal: positive: Flat, Other (GT present) Musculoskeletal: positive: Normal Inspection. negative: CVA Tenderness Extremity: positive: Normal Capillary Refill Integumentary: positive: Dry, Warm Neurologic: positive: Motor Strength 5/5, Confused, Other (altered mental status ). negative: Facial Droop ED Treatment Course - LABORATORY CBC & Chemistry Diagram: 03/17/18 01:36 03/17/18 01:36 Medical Decision Making - Medical Decision Making 03/17/18 01:56 Since hx is difficult to get, we shall do cBC, CMP, Mg, EKG, trops, BNP, UA, Urine culture, CT head Previous CT head documented infarcts 03/17/18 02:39 INR-4.7- pending CT head No leucocytosis Iv normal saline 250mls given-dry mucus membranes, elevated BUN 17 compared to 9 Glucose 67- majorly GT fed, occasionally fed soft foods by mouth- will give 10% DW Discussed with family, will also give iv haldol 5mg stat 03/17/18 02:52 03/17/18 06:52 Blood pressure noted to be high. 250mls of normal saline given. Cont 10% DW *DC/Admit/Observation/Transfer Diagnosis at time of Disposition: Agitation - Discharge Dispostion Condition at time of disposition: Improved Admit: Yes Decision to Admit order Date/Time: 03/17/18 06:40 Discussed the patient with Dr Espinal. She said the patient can be admitted for obs under Dr Oshea - Referrals - Patient Instructions - Post Discharge Activity - Attestations Physician Attestion: 03/17/18 05:21 Mitzi Camargo
--- NOTE | 2018-03-17 01:23 | PDOC ---
Attending Attestation - Resident Resident Name: Mitzi Camargo I - ED Attending Attestation I have performed the following: I have examined & evaluated the patient, The case was reviewed & discussed with the resident, I agree w/resident's findings & plan, Exceptions are as noted - HPI HPI: 03/17/18 01:23 77y M hx of parkinsons, afib on warfarin, bph, htn, hl, gerd, presents with agitation for the past few days. pt without other complaints here but noted to be agitated, trying to pull at his line required haldol as he was a danger to his care on exam pt has a scopalimine patch on his mastoid, per family it is due to his increasd oral secretions - consider if the scopalamine (Started 10 days ago) may be the cause of his AMS. pts labs reviewed inr elevated to 4 (was known from NH, will conitnue to hold his warfarin) ct head neg for acute process will remove his scopalamine patch and will observe pt as he is very somnlent due to haldol - Physicial Exam PE: 03/19/18 17:08 see bolivar e - Medical Decision Making 03/19/18 17:08 see above
[2018-03-17] MEDS ORDERED: SODIUM CHLORIDE 250 ML IV STA (01:34)
[2018-03-17 01:51] LABS: BASO % 0.5 % (0-2.0); EOS % 4.7 % (0-4.5); HEMATOCRIT 33.9 % (35.4-49); HEMOGLOBIN 11.9 GM/dL (11.7-16.9); LYMPH % 16.7 % (8-40); MCH 31.4 pg (25.7-33.7); MCHC 35.1 g/dl (32.0-35.9); MEAN CELL VOLUME 89.3 fl (80-96); MEAN PLT VOLUME 8.1 fl (7.5-11.1); MONO % 10.7 % (3.8-10.2); NEUT % 67.4 % (42.8-82.8); PLATELET COUNT 210 K/MM3 (134-434); RBC 3.79 M/mm3 (4.00-5.60); RDW 14.8 % (11.9-15.9); WHITE BLOOD COUNT 6.2 K/mm3 (4.0-10.0)
[2018-03-17 02:03] LABS: PROTHROMBIN TIME (PATIENT) 54.1 SEC (9.7-13.0)
[2018-03-17 02:05] LABS: INR 4.79 (0.82-1.09)
[2018-03-17] MEDS ORDERED: HALOPERIDOL LACTATE 2 MG/ML UNIT-DOSE CUPS PO ONE (02:05)
[2018-03-17 02:12] LABS: ALBUMIN 3.7 g/dl (3.4-5.0); ANION GAP 13 (8-16); BILIRUBIN,TOTAL 0.8 mg/dL (0.2-1.0); BLOOD UREA NITROGEN 17 mg/dL (7-18); CHLORIDE 101 mmol/L (98-107); CO2 26 mmol/L (21-32); CREATININE 0.8 mg/dL (0.7-1.3); GLUCOSE,RANDOM 67 mg/dL (74-106); POTASSIUM 3.5 mmol/L (3.5-5.1); SGOT/AST 35 U/L (15-37); SGPT/ALT 19 U/L (12-78); SODIUM 140 mmol/L (136-145)
[2018-03-17 02:13] LABS: ALK PHOS 84 U/L (45-117)
[2018-03-17] MEDS ORDERED: DEXTROSE 10%-WATER - 250 ML IV SCH (02:30)
[2018-03-17] MEDS ORDERED: HALOPERIDOL LACTATE 5 MG/ML IM ONE (02:32)
[2018-03-17] MEDS ORDERED: SODIUM CHLORIDE 0.9% 1000 ML INFUS.BAG IV ONE (02:46)
[2018-03-17] MEDS ORDERED: HALOPERIDOL LACTATE 5 MG/ML ONE (03:15)
--- NOTE | 2018-03-17 07:19 | PDOC ---
*Physical Exam - Vital Signs Last Vital Signs Temp Pulse Resp BP Pulse Ox 98.0 F 102 H 18 169/103 100 03/17/18 07:12 03/17/18 06:43 03/17/18 06:43 03/17/18 06:43 03/17/18 06:43 - Physical Exam Comments: 03/17/18 07:18 Pt signed out to me by Dr. Camargo. 77yo M found to be having new hallucinations and supratherapeutic INR to 4.7 off of Coumadin for [address] head negative for acute ICH with some old infarcts noted. CXR without acute pathology noted. ED Treatment Course - LABORATORY CBC & Chemistry Diagram: 03/17/18 01:36 03/17/18 01:36 - ADDITIONAL ORDERS Additional order review: Laboratory Results 03/17/18 03/17/18 03/17/18 01:36 01:36 01:36 PT with INR 54.10 H INR 4.79 H* D PTT (Actin FS) 45.6 H D Sodium Potassium Chloride Carbon Dioxide Anion Gap BUN Creatinine Creat Clearance w eGFR Random Glucose Calcium Magnesium 2.0 Total Bilirubin AST ALT Alkaline Phosphatase Troponin I B-Natriuretic Peptide Total Protein Albumin 03/17/18 03/17/18 03/17/18 01:36 01:35 01:35 PT with INR INR PTT (Actin FS) Sodium 140 Potassium 3.5 Chloride 101 Carbon Dioxide 26 Anion Gap 13 BUN 17 D Creatinine 0.8 Creat Clearance w eGFR > 60 Random Glucose 67 L Calcium 9.0 Magnesium Total Bilirubin 0.8 AST 35 D ALT 19 Alkaline Phosphatase 84 Troponin I < 0.02 D B-Natriuretic Peptide 3102.73 H Total Protein 7.0 Albumin 3.7 03/17/18 01:36 RBC 3.79 L MCV 89.3 MCHC 35.1 RDW 14.8 MPV 8.1 Neutrophils % 67.4 Lymphocytes % 16.7 Monocytes % 10.7 H Eosinophils % 4.7 H Basophils % 0.5 - Medications Given in the ED: ED Medications Discontinued Medications Generic Name Dose Route Start Last Admin Trade Name Freq PRN Reason Stop Dose Admin Haloperidol 1 mg 03/17/18 02:05 03/17/18 06:35 Haldol Liquid - PO 03/17/18 02:06 Not Given ONCE ONE Haloperidol 5 mg 03/17/18 02:32 03/17/18 03:30 Haldol Injection (Fast Acting) - IM 03/17/18 02:33 5 mg ONCE ONE Administration Sodium Chloride 250 mls @ 250 mls/hr 03/17/18 01:34 03/17/18 01:58 Normal Saline - IV 03/17/18 02:33 250 mls/hr ASDIR STA Administration Sodium Chloride 250 ml 03/17/18 02:46 03/17/18 03:17 Normal Saline - IV 03/17/18 02:47 250 ml ONCE ONE Administration Medical Decision Making - Medical Decision Making 03/17/18 08:54 Dr. Lopez evaluated patient. Admission orders placed *DC/Admit/Observation/Transfer Diagnosis at time of Disposition: Agitation, Supratherapeutic INR - Discharge Dispostion Condition at time of disposition: Improved Admit: Yes - Referrals - Patient Instructions - Post Discharge Activity
--- NOTE | 2018-03-17 07:28 | HP ---
CHIEF COMPLAINT: PCP: HISTORY OF PRESENT ILLNESS: ER course was notable for: (1) (2) (3) Recent Travel: PAST MEDICAL HISTORY: PAST SURGICAL HISTORY: Social History: Smoking: Alcohol: Drugs: Family History: Allergies Penicillins Allergy (Verified 03/17/18 00:43) HOME MEDICATIONS: Home Medications Medication Instructions Recorded Acetaminophen [Tylenol] 325 mg PO TID PRN 01/14/18 Atorvastatin Ca [Lipitor] 40 mg PO HS 01/14/18 Pantoprazole Sodium [Protonix] 40 mg GT DAILY 01/14/18 Ropinirole HCl [Requip] 5 mg GT QID 01/14/18 Tamsulosin HCl [Flomax] 0.4 mg GT DAILY 01/14/18 Bacitracin - [Bacitracin Topical 1 applic TP BID tube 01/27/18 Ointment -] Carbidopa/Levodopa 25/100 [Sinemet 2 each PEG 0700,1100,1500,1900 01/27/18 25/100 -] tablet Carvedilol [Coreg -] 25 mg PEG BID tablet 01/27/18 Valsartan [Diovan] 160 mg PEG BID tablet 01/27/18 levETIRAcetam [Keppra Oral 500 mg GT BID cup 01/27/18 Solution -] Warfarin Na [Coumadin -] 7.5 mg GT DAILY@1800 01/31/18 Amlodipine Besylate 10 mg GT DAILY 03/17/18 Entacapone [Comtan -] 200 mg PO BID 03/17/18 Hydralazine HCl 10 mg GT BID 03/17/18 Melatonin 1 mg GT HS 03/17/18 Ropinirole HCl 3 mg GT DAILY 03/17/18 Sertraline HCl 100 mg GT DAILY 03/17/18 Vitamin B Complex [B Complex] 1 each GT DAILY 03/17/18 REVIEW OF SYSTEMS CONSTITUTIONAL: Absent: fever, chills, diaphoresis, generalized weakness, malaise, loss of appetite, weight change HEENT: Absent: rhinorrhea, nasal congestion, throat pain, throat swelling, difficulty swallowing, mouth swelling, ear pain, eye pain, visual changes CARDIOVASCULAR: Absent: chest pain, syncope, palpitations, irregular heart rate, lightheadedness , peripheral edema RESPIRATORY: Absent: cough, shortness of breath, dyspnea with exertion, orthopnea, wheezing, stridor, hemoptysis GASTROINTESTINAL: Absent: abdominal pain, abdominal distension, nausea, vomiting, diarrhea, constipation, melena, hematochezia GENITOURINARY: Absent: dysuria, frequency, urgency, hesitancy, hematuria, flank pain, genital pain MUSCULOSKELETAL: Absent: myalgia, arthralgia, joint swelling, back pain, neck pain SKIN: Absent: rash, itching, pallor HEMATOLOGIC/IMMUNOLOGIC: Absent: easy bleeding, easy bruising, lymphadenopathy, frequent infections ENDOCRINE: Absent: unexplained weight gain, unexplained weight loss, heat intolerance, cold intolerance NEUROLOGIC: Absent: headache, focal weakness or paresthesias, dizziness, unsteady gait, seizure, mental status changes, bladder or bowel incontinence PSYCHIATRIC: Absent: anxiety, depression, suicidal or homicidal ideation, hallucinations. PHYSICAL EXAMINATION Vital Signs - 24 hr 03/17/18 03/17/18 03/17/18 00:43 05:00 06:43 Temperature 97.6 F Pulse Rate 102 H Pulse Rate [ 102 H Left Apical] Respiratory 18 18 Rate Blood Pressure 98/72 Blood Pressure 169/103 [Right Arm] O2 Sat by Pulse 99 97 100 Oximetry (%) 03/17/18 07:12 Temperature 98.0 F Pulse Rate Pulse Rate [ Left Apical] Respiratory Rate Blood Pressure Blood Pressure [Right Arm] O2 Sat by Pulse Oximetry (%) GENERAL: Awake, alert, and fully oriented, in no acute distress. HEAD: Normal with no signs of trauma. EYES: Pupils equal, round and reactive to light, extraocular movements intact, sclera anicteric, conjunctiva clear. No lid lag. EARS, NOSE, THROAT: Ears normal, nares patent, oropharynx clear without exudates. Moist mucous membranes. NECK: Normal range of motion, supple without lymphadenopathy, JVD, or masses. LUNGS: Breath sounds equal, clear to auscultation bilaterally. No wheezes, and no crackles. No accessory muscle use. HEART: Regular rate and rhythm, normal S1 and S2 without murmur, rub or gallop. ABDOMEN: Soft, nontender, not distended, normoactive bowel sounds, no guarding, no rebound, no masses. No hepatomegaly or splenomegaly. MUSCULOSKELETAL: Normal range of motion at all joints. No bony deformities or tenderness. No CVA tenderness. UPPER EXTREMITIES: 2+ pulses, warm, well-perfused. No cyanosis. No clubbing. No peripheral edema. LOWER EXTREMITIES: 2+ pulses, warm, well-perfused. No calf tenderness. No peripheral edema. NEUROLOGICAL: Cranial nerves II-XII intact. Normal speech. Normal gait. PSYCHIATRIC: Cooperative. Good eye contact. Appropriate mood and affect. SKIN: Warm, dry, normal turgor, no rashes or lesions noted, normal capillary refill. Laboratory Results - last 24 hr 03/17/18 03/17/18 03/17/18 01:35 01:35 01:36 WBC 6.2 RBC 3.79 L Hgb 11.9 D Hct 33.9 L MCV 89.3 MCH 31.4 MCHC 35.1 RDW 14.8 Plt Count 210 MPV 8.1 Neutrophils % 67.4 Lymphocytes % 16.7 Monocytes % 10.7 H Eosinophils % 4.7 H Basophils % 0.5 PT with INR INR PTT (Actin FS) Sodium Potassium Chloride Carbon Dioxide Anion Gap BUN Creatinine Creat Clearance w eGFR Random Glucose Calcium Magnesium Total Bilirubin AST ALT Alkaline Phosphatase Troponin I < 0.02 D B-Natriuretic Peptide 3102.73 H Total Protein Albumin 03/17/18 03/17/18 03/17/18 01:36 01:36 01:36 WBC RBC Hgb Hct MCV MCH MCHC RDW Plt Count MPV Neutrophils % Lymphocytes % Monocytes % Eosinophils % Basophils % PT with INR 54.10 H INR 4.79 H* D PTT (Actin FS) Sodium 140 Potassium 3.5 Chloride 101 Carbon Dioxide 26 Anion Gap 13 BUN 17 D Creatinine 0.8 Creat Clearance w eGFR > 60 Random Glucose 67 L Calcium 9.0 Magnesium 2.0 Total Bilirubin 0.8 AST 35 D ALT 19 Alkaline Phosphatase 84 Troponin I B-Natriuretic Peptide Total Protein 7.0 Albumin 3.7 03/17/18 01:36 WBC RBC Hgb Hct MCV MCH MCHC RDW Plt Count MPV Neutrophils % Lymphocytes % Monocytes % Eosinophils % Basophils % PT with INR INR PTT (Actin FS) 45.6 H D Sodium Potassium Chloride Carbon Dioxide Anion Gap BUN Creatinine Creat Clearance w eGFR Random Glucose Calcium Magnesium Total Bilirubin AST ALT Alkaline Phosphatase Troponin I B-Natriuretic Peptide Total Protein Albumin ASSESSMENT/PLAN: Hospitalist Screening - Colonoscopy Questionnaire Colonoscopy Questionnaire: Colonoscopy Questionnaire
--- NOTE | 2018-03-17 08:50 | HP ---
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 Pt was noted by the relatives to have increasing hallucinations over the past couple of days. This am, the pt was given zoloft at 100mg for for agitation, with INR noted to be supratherapeutic at 4.1 (with warfarin held for 2 days), but alert despite being confused and agitated. There was no record of head trauma, although patient was noted to have kept trying to get out of bed. Family by the bedside explained that patient wanted to leave the hospital/ [facility] (unclear). The family is unaware of any other symptoms, including fever, hematuria or chest pain. 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) Cardiovascular: Yes: AFIB, HTN, Hyperlipdemia - Past Surgical History Past Surgical History: Yes: Joint Replacement - Smoking History Smoking history: Unknown if ever smoked Have you smoked in the past 12 months: No - Alcohol/Substance Use Hx Alcohol Use: No History of Substance Use: reports: None - Social History ADL: Support Services History of Recent Travel: No Home Medications - Allergies Allergies/Adverse Reactions: Allergies Allergy/AdvReac Type Severity Reaction Status Date / Time Penicillins Allergy Verified 03/17/18 00:43 - Home Medications Home Medications: Ambulatory Orders Acetaminophen [Tylenol] 325 mg PO TID PRN 01/14/18 Atorvastatin Ca [Lipitor] 40 mg PO HS 01/14/18 Pantoprazole Sodium [Protonix] 40 mg GT DAILY 01/14/18 Ropinirole HCl [Requip] 5 mg GT QID 01/14/18 Tamsulosin HCl [Flomax] 0.4 mg GT DAILY 01/14/18 Bacitracin - [Bacitracin Topical Ointment -] 1 applic TP BID tube 01/27/18 Carbidopa/Levodopa 25/100 [Sinemet 25/100 -] 2 each PEG 0700,1100,1500,1900 tablet 01/27/18 Carvedilol [Coreg -] 25 mg PEG BID tablet 01/27/18 Valsartan [Diovan] 160 mg PEG BID tablet 01/27/18 levETIRAcetam [Keppra Oral Solution -] 500 mg GT BID cup 01/27/18 Warfarin Na [Coumadin -] 7.5 mg GT DAILY@1800 01/31/18 Amlodipine Besylate 10 mg GT DAILY 03/17/18 Entacapone [Comtan -] 200 mg PO BID 03/17/18 Hydralazine HCl 10 mg GT BID 03/17/18 Melatonin 1 mg GT HS 03/17/18 Ropinirole HCl 3 mg GT DAILY 03/17/18 Sertraline HCl 100 mg GT DAILY 03/17/18 Vitamin B Complex [B Complex] 1 each GT DAILY 03/17/18 Physical Examination Vital Signs: Vital Signs Temperature 97.6 F 03/17/18 08:33 Pulse Rate 86 03/17/18 08:33 Respiratory Rate 20 03/17/18 08:33 Blood Pressure 180/105 03/17/18 08:33 O2 Sat by Pulse Oximetry (%) 100 03/17/18 06:43 Cardiovascular: Yes: S1, S2 Respiratory: Yes: Regular, CTA Bilaterally Gastrointestinal: Yes: Normal Bowel Sounds, Soft Edema: No Neurological: Yes: Other (now sedated) Labs: CBC, BMP 03/17/18 01:36 03/17/18 01:36 Problem List - Problems (1) Agitation Assessment/Plan: UA AND CS FOLLOW LABS NEURO Code(s): R45.1 - RESTLESSNESS AND AGITATION (2) Supratherapeutic INR Assessment/Plan: HOLD COUMADIN FOLLOW INR Code(s): R79.1 - ABNORMAL COAGULATION PROFILE (3) Atrial fibrillation Assessment/Plan: RESUME MEDS MONITOR RATE Code(s): I48.91 - UNSPECIFIED ATRIAL FIBRILLATION Qualifiers: Atrial fibrillation type: persistent Qualified Code(s): I48.1 - Persistent atrial fibrillation (4) Labile hypertension Assessment/Plan: RESUME MEDS AND MONITOR Code(s): R09.89 - OTH SYMPTOMS AND SIGNS INVOLVING THE CIRC AND RESP SYSTEMS (5) Parkinson disease Assessment/Plan: RESUME MEDS MONITOR NEURO PT EVAL Code(s): G20 - PARKINSON'S DISEASE
[2018-03-17] MEDS ORDERED: CARVEDILOL 12.5 MG TABLET (FP) ONE (09:15)
[2018-03-17] MEDS ORDERED: VALSARTAN 80 MG TABLET (UD) ONE (09:16)
[2018-03-17] MEDS ORDERED: amLODIPine BESYLATE 5 MG TABLET (FP) ONE (09:17)
[2018-03-17] MEDS ORDERED: CARBIDOPA/LEVODOPA 25/100 TABLET (FP) ONE (09:18)
[2018-03-17] MEDS ORDERED: SERTRALINE HCL 50 MG TABLET (FP) ONE (09:19)
[2018-03-17] MEDS ORDERED: levETIRAcetam 500 MG TABLET (FP) PO ONE (09:19)
[2018-03-17] MEDS: VALSARTAN 160 MG TABLET (UD) PEG SCH ×2 (09:22→21:51)
[2018-03-17] MEDS: CARVEDILOL 25 MG TABLET (FP) PEG SCH ×2 (09:22→21:50)
[2018-03-17] MEDS: levETIRAcetam 500 MG/5 ML ORAL SOLUTION (UNIT-DOSE CUPS) GT SCH ×2 (09:23→21:51)
[2018-03-17] MEDS: amLODIPine BESYLATE 10 MG TABLET (FP) GT SCH (09:24)
[2018-03-17 09:49] LABS: URINE APPEARANCE CLEAR; URINE BILIRUBIN NEGATIVE (<2.0 mg/dL); URINE BLOOD NEGATIVE (NEGATIVE); URINE GLUCOSE (UA) NEGATIVE (NEGATIVE); URINE KETONE TRACE (NEGATIVE); URINE NITRITE NEGATIVE (NEGATIVE); URINE PROTEIN NEGATIVE (NEGATIVE)
[2018-03-17] MEDS ORDERED: ENTACAPONE 200 MG TABLET PO SCH (10:00)
[2018-03-17] MEDS ORDERED: SERTRALINE HCL 50 MG TABLET (FP) GT SCH (10:00)
[2018-03-17] MEDS ORDERED: rOPINIRole HCL 3 MG TABLET PO SCH (10:00)
[2018-03-17 10:13] LABS: URINE COLOR AMBER; URINE LEUK ESTERASE 1+ (NEGATIVE)
--- NOTE | 2018-03-17 10:13 | EKG ---
Test Reason : Blood Pressure : / mmHG Vent. Rate : 114 BPM Atrial Rate : 120 BPM P-R Int : 000 ms QRS Dur : 082 ms QT Int : 348 ms P-R-T Axes : 000 060 034 degrees QTc Int : 479 ms POOR DATA QUALITY, INTERPRETATION MAY BE ADVERSELY AFFECTED ATRIAL FIBRILLATION WITH RAPID VENTRICULAR RESPONSE MINIMAL VOLTAGE CRITERIA FOR LVH, MAY BE NORMAL VARIANT ABNORMAL ECG WHEN COMPARED WITH ECG OF 31-JAN-2018 18:43, NO SIGNIFICANT CHANGE WAS FOUND Confirmed by MD DONTE, LESLI ([id number]) on 03/17/2018 10:13:36 AM Referred By: Confirmed By:LESLI KENT MD
[2018-03-17 10:16] LABS: URINE HYALINE CAST 15 /lpf; URINE MUCUS RARE
[2018-03-17] MEDS ORDERED: BACITRACIN 0.9 GM PACKET ONE (10:50)
--- NOTE | 2018-03-17 11:24 | CONSULT ---
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 Pt was noted by the relatives to have increasing hallucinations over the past couple of days. This am, the pt was given zoloft at 100mg for for agitation, with INR noted to be supratherapeutic at 4.1 (with warfarin held for 2 days), but alert despite being confused and agitated. MBS performed 01/01/18. PEG inserted last admission Seen in ER. Received Haldol. Sleepy but arousable. 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) Cardiovascular: Yes: AFIB, HTN, Hyperlipdemia - Past Surgical History Past Surgical History: Yes: Joint Replacement - Smoking History Smoking history: Unknown if ever smoked Have you smoked in the past 12 months: No - Alcohol/Substance Use Hx Alcohol Use: No History of Substance Use: reports: None - Social History ADL: Support Services History of Recent Travel: No History - Admission Reason For Visit: AGITATION - Diagnostics X-ray: Report Reviewed - General Mental Status: Lethargic (arousable and verbal.Telugu speaking) Ability to Follow Directions: Good - Hearing Hearing: Functional Speech Evaluation - Communication Primary Language: FRENCH Communication: Yes: Simple Responses - Speech Production Apraxia: No Intelligibility: Yes: WNL - Speech Characteristics Voice Loudness: Normal Voice Pitch: Yes: Normal Voice Phonatory-based Quality: Yes: Normal Speech Pattern: Normal Speech Clarity: < 100% Nasal Resonance: Normal Articulation: Yes: Precise - Language/Auditory Comprehension Follows: Yes: 1 Stage Simple Commands Observation: Comprehends Conversational Speech: No - Language/Verbal Expression Aphasia: Yes: Apraxia - Swallow Evaluation/Bedside Assessment Current Nutritional Intake: NPO, G Tube Oral Secretions: Yes: WFL Facial Symmetry at Rest: Symmetrical Facial Symmetry on Retraction: Symmetrical Against Resistance Opening: Normal Against Resistance Closing: Normal Pucker Lips: Normal Smile: Normal Lingual Movement: Normal, Symmetric Lingual Speed of Movement: Normal Lingual Movement Strgth Against Opposition: Normal Lingual Movement Characteristics: Normal Velopharyngeal Movement: Normal Laryngeal Movement: Able to Palpate Recommendations - Speech Evaluation, Impression/Plan Impression: seen in ER. Sleepy but arousable. Good vocal quality. PO trial not presented due to lethargy and NPO status. [facility] 12/2017. PEG inserted recently. - Dysphagia Impressions/Plan Swallowing Skills: Impaired Dysphagia Impressions: Ongoing Evaluation *Silent aspiration: cannot be R/O at bedside Recommendations: Modified Barium Swallow (to determine if pt can tolerate PO diet atleast for pleasure feeds.), Other (GT for now)
[2018-03-17 11:28] VITALS: BMI 19.2
[2018-03-17] MEDS: CARBIDOPA/LEVODOPA 25/100 TABLET (FP) PEG SCH ×3 (11:48→18:39)
[2018-03-17] MEDS: hydrALAZINE HCL 10 MG TABLET GT SCH ×2 (11:50→21:50)
[2018-03-17] MEDS: RANITIDINE HCL 150 MG/10 ML UNIT-DOSE GT SCH ×2 (11:50→21:50)
[2018-03-17] MEDS ORDERED: PT OWN MED DRAWER 7, Y5N ONE ×2 (15:45→21:34)
--- NOTE | 2018-03-17 16:40 | CON.PSY ---
Psychiatry Consult Chief Complaint: 77 year old Faroese male, resident of [facility], admitted with acute agitation and confusion. Patient has Parkinsons disease as well as Dementia. Symptoms: reports: Aggressivity, Impulsivity - Previous Psychiatric Treatment Outpatient: None Inpatient: None - Previous Substance Abuse Treatment Outpatient: None Inpatient: None - Current Medications Current Medications: Active Medications Amlodipine Besylate (Norvasc -) 10 mg GT DAILY [facility] Last Admin: 03/17/18 09:24 Dose: 10 mg Atorvastatin Calcium (Lipitor -) 40 mg GT HS [facility] Carbidopa/Levodopa (Sinemet 25/100 -) 2 each PEG 0700,1100,1500,1900 [facility] Last Admin: 03/17/18 15:21 Dose: 2 each Carvedilol (Coreg -) 25 mg PEG BID [facility] Last Admin: 03/17/18 09:22 Dose: 25 mg Entacapone (Comtan -) 200 mg PO BID [facility] Last Admin: 03/17/18 11:50 Dose: 200 mg Hydralazine HCl (Apresoline -) 10 mg GT BID [facility] Last Admin: 03/17/18 11:50 Dose: 10 mg Dextrose (D10w -) 250 mls @ 83 mls/hr IV ASDIR [facility] Last Admin: 03/17/18 03:17 Dose: 83 mls/hr Levetiracetam (Keppra Oral Solution -) 500 mg GT BID [facility] Last Admin: 03/17/18 09:23 Dose: 500 mg Melatonin (Melatonin) 1 mg PO HS [facility] Quetiapine Fumarate (Seroquel -) 25 mg PO HS [facility] Ranitidine HCl (Zantac Oral Solution -) 150 mg GT BID [facility] Last Admin: 03/17/18 11:50 Dose: 150 mg Ropinirole HCl (Requip -) 5 mg PO QID [facility] Ropinirole HCl (Requip -) 3 mg PO DAILY [facility] Sertraline HCl (Zoloft -) 100 mg GT DAILY [facility] Last Admin: 03/17/18 09:24 Dose: 100 mg Tamsulosin HCl (Flomax -) 0.4 mg PO DAILY [facility] Valsartan (Diovan -) 160 mg PEG BID [facility] Last Admin: 03/17/18 09:22 Dose: 160 mg - Allergies Allergies: Allergies Allergy/AdvReac Type Severity Reaction Status Date / Time Penicillins Allergy Verified 03/17/18 00:43 - Current Living Status Usual Living Arrangement: Halfway - Current Mental Status Evaluation Appearance: Disheveled Attitude: Uncooperative - Affect Affect: Constrictive Appropriateness: Not Appropriate - Mood Mood: Irritable - Speech/Language Expressive: Delayed - Psychomotor Activity Psychomotor Activity: Hyperactive - Thought Process Thought Process: [place] - Thought Content Hallucinations: Absent Delusions: Absent - Self Perception Self Perception: Depersonalization - Cognition Attention: Diminished Memory, Immediate Recall: Impaired Memory, Short Term: 0/3 Memory, Remote with Promptin/3 - Concentration Serial Sevens Intact: No Simple Calculations Intact: No - Abstraction Proverb Interpretation: Intact, Impaired Judgement: Severely Impaired - Insight Insight: Impaired - Suicidal Ideation Suicidal Ideation: No - Homicidal Ideation Homicidal Ideation: No Assessment/Plan 1) Sroquel 25mg po hs 2) ativan prn for acute agitaion.
--- NOTE | 2018-03-17 19:34 | CONSULT ---
Consult - text type - Consultation Consultation Note: NEUROLOGY CONSULTATION is greatly appreciated: This 77 yo RH man with HTN, Chol, GERD, and AFib is s/p left cerebellar and right frontal CVA's and is maintained on coumadin. Known to me with chronic Parkinson's disease and dysphagia. S/P PEG. Was on Sinemet 50/200 and ropinirole 0.5 mg QID but on 03/06/18 Ropinirole was increased to 5 mg QID and 3 mg at 3 AM. Now admitted with increasing agitation and hallucinations. CT of head (reviewed) shows large left cerebellar and small left frontotemporal CVAs with moderate underlying atrophy. Labs sig for 14 urinary WBC's. EXAM: Thin. S/P PEG NEURO: Awake, alert, staring, + Glabellar, snout, suck Follows simple commands. O x [facility]. January 2018 Full roldan. Decreased blink. Decreased gag Rigid tone R>>L with tremors and cogwheeling. Early contractures at the knees. Areflexic in the legs. IMP: Parkinson's disease. Moderate B/L Cerebral dysfunction with features of Delirium likely due to increased doses of dopamine agonists. May also be increased by Toxic-metabolic encephalopathy (UTI) SUGGEST: Continue carbidopa/levadopa 25/250 QID @ 6, 10, 2, and 6 Resume ropinirole .5 mg QID with sinemet. D/C entacapone. Reduce sertraline to 50 mg q AM Increase quetiapine to 50 mg qHS Please avoid Haldol and more classical neuroleptics. Please Rx for UTI. Mobiolize OOB to chair and Bedside/chairside PT. Thank you very much, Valentino Blake MD.
[2018-03-17] MEDS: rOPINIRole HCL 0.5 MG TABLET PO SCH (20:39)
[2018-03-17] MEDS ORDERED: QUEtiapine FUMARATE 25 MG TABLET (FP) ONE (21:22)
[2018-03-17] MEDS: ATORVASTATIN CA 40 MG TABLET (FP) GT SCH (21:50)
[2018-03-17] MEDS: QUEtiapine FUMARATE 50 MG TABLET GT SCH (21:50)
[2018-03-17] MEDS: MELATONIN 1 MG TABLET PO SCH (21:51)
[2018-03-17] MEDS ORDERED: QUEtiapine FUMARATE 25 MG TABLET (FP) PO SCH (22:00)
[2018-03-18] MEDS: CARBIDOPA/LEVODOPA 25/250 TABLET (FP) PO SCH ×4 (05:24→17:36)
[2018-03-18] MEDS: rOPINIRole HCL 0.5 MG TABLET NR SCH ×4 (05:25→17:36)
[2018-03-18 07:02] LABS: BASO % 0.3 % (0-2.0); EOS % 9.4 % (0-4.5); HEMATOCRIT 34.3 % (35.4-49); HEMOGLOBIN 12.1 GM/dL (11.7-16.9); LYMPH % 17.4 % (8-40); MCH 31.3 pg (25.7-33.7); MCHC 35.4 g/dl (32.0-35.9); MEAN CELL VOLUME 88.3 fl (80-96); MEAN PLT VOLUME 8.1 fl (7.5-11.1); MONO % 9.6 % (3.8-10.2); NEUT % 63.3 % (42.8-82.8); PLATELET COUNT 199 K/MM3 (134-434); RBC 3.88 M/mm3 (4.00-5.60); RDW 14.7 % (11.9-15.9); WHITE BLOOD COUNT 6.8 K/mm3 (4.0-10.0)
[2018-03-18 07:11] LABS: PROTHROMBIN TIME (PATIENT) 48.9 SEC (9.7-13.0)
[2018-03-18 07:14] LABS: INR 4.33 (0.82-1.09)
[2018-03-18 07:34] LABS: ALBUMIN 3.3 g/dl (3.4-5.0); ANION GAP 9 (8-16); BILIRUBIN,TOTAL 0.9 mg/dL (0.2-1.0); BLOOD UREA NITROGEN 11 mg/dL (7-18); CALCIUM 8.6 mg/dL (8.5-10.1); CHLORIDE 102 mmol/L (98-107); CO2 29 mmol/L (21-32); CREATININE 0.7 mg/dL (0.7-1.3); GLUCOSE,RANDOM 110 mg/dL (74-106); POTASSIUM 3.3 mmol/L (3.5-5.1); SGOT/AST 28 U/L (15-37); SGPT/ALT 19 U/L (12-78); SODIUM 140 mmol/L (136-145); TOT PROT 6.8 g/dl (6.4-8.2)
[2018-03-18 07:35] LABS: ALK PHOS 86 U/L (45-117)
[2018-03-18] MEDS: amLODIPine BESYLATE 10 MG TABLET (FP) GT SCH (09:49)
[2018-03-18] MEDS: SERTRALINE HCL 50 MG TABLET (FP) GT SCH (09:50)
[2018-03-18] MEDS: hydrALAZINE HCL 10 MG TABLET GT SCH ×2 (09:50→21:41)
[2018-03-18] MEDS: CARVEDILOL 25 MG TABLET (FP) PEG SCH ×2 (09:50→21:41)
[2018-03-18] MEDS: VALSARTAN 160 MG TABLET (UD) PEG SCH ×2 (09:50→21:41)
[2018-03-18] MEDS: levETIRAcetam 500 MG/5 ML ORAL SOLUTION (UNIT-DOSE CUPS) GT SCH ×2 (09:51→21:41)
[2018-03-18] MEDS: RANITIDINE HCL 150 MG/10 ML UNIT-DOSE GT SCH ×2 (09:52→21:41)
--- NOTE | 2018-03-18 10:33 | PN ---
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 Eyes closed, stating he tired.[place] Island[place] speaking. Opens eyes and follows commands. Says he is "in the hospital" for "Parkinsons". Pt fully oriented x 3. Swallow assessed at bedside. Labial/lingual pumping to facilitate negrito- pharyngeal transer. Swallow is delayed, initially with reduced excursion and multiple swallows triggered, c/w pharyngeal stasis. 2nd trial with much stronger swallow, triggered once. Per transfer summary, pt on GT,NPO, had not received swallowing therapy. REC: MBS to determine present swallowing function Swallowing tx upon d/c is vital.
[2018-03-18] MEDS ORDERED: POTASSIUM CHLORIDE ORAL LIQUID 20 MEQ/15 ML PO ONE (10:54)
--- NOTE | 2018-03-18 10:58 | PN ---
Progress Note, Physician - Current Medication List Current Medications: Active Medications Amino Acids (Prosource No Carb Liquid Pkt) 30 ml GT BID@0800,1730 [facility] Amlodipine Besylate (Norvasc -) 10 mg GT DAILY [facility] Last Admin: 03/18/18 09:49 Dose: 10 mg Atorvastatin Calcium (Lipitor -) 40 mg GT HS [facility] Last Admin: 03/17/18 21:50 Dose: 40 mg Carbidopa/Levodopa (Sinemet 25/250 -) 1 each PO 0600,1000,1400,1800 [facility] Last Admin: 03/18/18 09:52 Dose: 1 each Carvedilol (Coreg -) 25 mg PEG BID [facility] Last Admin: 03/18/18 09:50 Dose: 25 mg Hydralazine HCl (Apresoline -) 10 mg GT BID [facility] Last Admin: 03/18/18 09:50 Dose: 10 mg Levetiracetam (Keppra Oral Solution -) 500 mg GT BID [facility] Last Admin: 03/18/18 09:51 Dose: 500 mg Melatonin (Melatonin) 1 mg PO [facility] Last Admin: 03/17/18 21:51 Dose: 1 mg Potassium Chloride (Potassium Chloride Oral Liquid) 40 meq GT ONCE ONE Stop: 03/18/18 10:55 Quetiapine Fumarate (Seroquel -) 50 mg GT [facility] Last Admin: 03/17/18 21:50 Dose: 50 mg Ranitidine HCl (Zantac Oral Solution -) 150 mg GT BID [facility] Last Admin: 03/18/18 09:52 Dose: 150 mg Ropinirole HCl (Requip -) 0.5 mg NR 0600,1000,1400,1800 [facility] Last Admin: 03/18/18 09:51 Dose: 0.5 mg Sertraline HCl (Zoloft -) 50 mg GT DAILY [facility] Last Admin: 03/18/18 09:50 Dose: 50 mg Tamsulosin HCl (Flomax -) 0.4 mg PO DAILY [facility] Valsartan (Diovan -) 160 mg PEG BID [facility] Last Admin: 03/18/18 09:50 Dose: 160 mg - Objective Vital Signs: Vital Signs Temperature 97.6 F 03/18/18 10:00 Pulse Rate 86 03/18/18 10:00 Respiratory Rate 18 03/18/18 10:00 Blood Pressure 139/88 03/18/18 10:00 O2 Sat by Pulse Oximetry (%) 98 03/17/18 21:00 Constitutional: Yes: Well Nourished, No Distress, Calm Labs: CBC, BMP 03/18/18 06:38 03/18/18 06:38 INR, PTT INR 4.33 (0.82-1.09) H* 03/18/18 06:38
[2018-03-18] MEDS ORDERED: POTASSIUM CHLORIDE ORAL LIQUID 20 MEQ/15 ML GT ONE ×2 (11:30→14:15)
[2018-03-18] MEDS ORDERED: AMINO ACIDS/PROTEIN HYDROLYS 30 ML LIQUID.PKT PO SCH (17:30)
[2018-03-18] MEDS ORDERED: PT OWN MED DRAWER 7, Y5N ONE ×2 (17:35→21:07)
[2018-03-18] MEDS: AMINO ACIDS/PROTEIN HYDROLYS 30 ML LIQUID.PKT GT SCH (17:36)
[2018-03-18] MEDS ORDERED: QUEtiapine FUMARATE 25 MG TABLET (FP) ONE (21:07)
[2018-03-18] MEDS: QUEtiapine FUMARATE 50 MG TABLET GT SCH (21:41)
[2018-03-18] MEDS: ATORVASTATIN CA 40 MG TABLET (FP) GT SCH (21:41)
[2018-03-18] MEDS: MELATONIN 1 MG TABLET PO SCH (21:42)
[2018-03-19] MEDS ORDERED: PT OWN MED DRAWER 7, Y5N ONE ×2 (05:20→21:32)
[2018-03-19] MEDS: CARBIDOPA/LEVODOPA 25/250 TABLET (FP) PO SCH ×4 (05:24→17:42)
[2018-03-19] MEDS: rOPINIRole HCL 0.5 MG TABLET NR SCH ×4 (05:25→17:43)
[2018-03-19 07:23] LABS: ALBUMIN 3.3 g/dl (3.4-5.0); ALK PHOS 79 U/L (45-117); ANION GAP 7 (8-16); BASO % 0.3 % (0-2.0); BILIRUBIN,TOTAL 0.7 mg/dL (0.2-1.0); BLOOD UREA NITROGEN 15 mg/dL (7-18); CALCIUM 8.9 mg/dL (8.5-10.1); CHLORIDE 105 mmol/L (98-107); CO2 29 mmol/L (21-32); CREATININE 0.6 mg/dL (0.7-1.3); EOS % 11.1 % (0-4.5); GLUCOSE,RANDOM 117 mg/dL (74-106); HEMATOCRIT 34.2 % (35.4-49); HEMOGLOBIN 12.1 GM/dL (11.7-16.9); LYMPH % 16.7 % (8-40); MCH 31.6 pg (25.7-33.7); MCHC 35.5 g/dl (32.0-35.9); MEAN CELL VOLUME 89.1 fl (80-96); MEAN PLT VOLUME 8.2 fl (7.5-11.1); MONO % 9.1 % (3.8-10.2); NEUT % 62.8 % (42.8-82.8); PLATELET COUNT 198 K/MM3 (134-434); POTASSIUM 3.6 mmol/L (3.5-5.1); RBC 3.83 M/mm3 (4.00-5.60); RDW 14.7 % (11.9-15.9); SGOT/AST 21 U/L (15-37); SGPT/ALT 13 U/L (12-78); SODIUM 141 mmol/L (136-145); TOT PROT 6.7 g/dl (6.4-8.2); WHITE BLOOD COUNT 6.7 K/mm3 (4.0-10.0)
[2018-03-19 10:10] LABS: INR 2.77 (0.82-1.09); PROTHROMBIN TIME (PATIENT) 31.3 SEC (9.7-13.0)
--- NOTE | 2018-03-19 10:26 | DS ---
Physical Examination Vital Signs: Vital Signs Temperature 98.2 F 03/19/18 06:00 Pulse Rate 88 03/19/18 06:00 Respiratory Rate 20 03/19/18 06:00 Blood Pressure 145/70 03/19/18 06:00 O2 Sat by Pulse Oximetry (%) 99 03/18/18 20:40 Findings/Remarks: EVENTS AND NOTES REVIEWED PATIENT CONVERSING NO DISTRESS BASELINE DEMENTIA Constitutional: Yes: No Distress Eyes: Yes: WNL HENT: Yes: WNL Neck: Yes: WNL Cardiovascular: Yes: Pulse Irregular Respiratory: Yes: WNL Gastrointestinal: Yes: WNL, Other (GT) Renal/: Yes: Incontinence Musculoskeletal: Yes: Muscle Weakness Extremities: Yes: Other Edema: No Peripheral Pulses WNL: Yes Integumentary: Yes: Other Wound/Incision: Yes: Other Neurological: Yes: Confusion, Pre-Existing Deficit ...Motor Strength: LLE, RLE Psychiatric: Yes: Other Labs: CBC, BMP 03/19/18 05:35 03/19/18 05:35 Discharge Summary Reason For Visit: AGITATION Current Active Problems Agitation (Acute) Supratherapeutic INR (Acute) OLD CVA Procedures: Principal: CT HEAD Hospital Course: ADMITTED MONITORED ON TELEMETRY, PATIENT WAS ADMITTED FOR INCREASED INR, REQUIP INTAKE, NO ACUTE ALARMS +UTI, WILL TREAT WITH MACROBID 5 DAYS Condition: Improved - Instructions Diet, Activity, Other Instructions: GTUBE FOR MEDS AND FEEDS HONEY THICK LIQUIDS CAN GIVE SOME OF THE MEDICATIONS ORALLY IF NEEDED. Referrals: Nava Lopez MD [Primary Care Provider] - Disposition: [facility] - Home Medications Comprehensive Discharge Medication List: Ambulatory Orders Acetaminophen [Tylenol] 325 mg GT TID PRN 01/14/18 Atorvastatin Ca [Lipitor] 40 mg PO HS 01/14/18 Bacitracin - [Bacitracin Topical Ointment -] 1 applic TP BID tube 01/27/18 Carbidopa/Levodopa 25/100 [Sinemet 25/100 -] 2 each PEG 0700,1100,1500,1900 tablet 01/27/18 Carvedilol [Coreg -] 25 mg PEG BID tablet 01/27/18 Valsartan [Diovan] 160 mg PEG BID tablet 01/27/18 levETIRAcetam [Keppra Oral Solution -] 500 mg GT BID cup 01/27/18 Amlodipine Besylate 10 mg GT DAILY 03/17/18 Entacapone [Comtan -] 200 mg GT BID 03/17/18 Hydralazine HCl 10 mg GT BID 03/17/18 L. Acidophilus/Bifid. Animalis [Probiotic 5 Billion Cell Cap] 1 each GT DAILY Melatonin 3 ml GT HS 03/17/18 Menthol [Bengay Ultra Strength] 1 each TP DAILY 03/17/18 Nut.tx. Metabolic Disorder,Soy [Perative] 1,500 ml GT 1700 03/17/18 Pyridoxine HCl (B-6) [Vitamin B6 -] 100 mg GT DAILY 03/17/18 Scopolamine [Transderm-Scop] 1 each TD Q72H 03/17/18 Vitamin B Complex [B Complex] 1 each GT DAILY 03/17/18 Amino Acids/Protein Hydrolys [Prosource No Carb Liquid Pkt] 30 ml GT BID@0800, 1730 packet 03/19/18 Carbidopa/Levodopa 25/250 [Sinemet 25/250 -] 1 each PO 0600,1000,1400,1800 tablet 03/19/18 Quetiapine Fumarate [Seroquel -] 25 mg PO HS tablet 03/19/18 Ranitidine Oral Solution [Zantac Oral Solution -] 150 mg GT BID cup 03/19/18 Ropinirole HCl [Requip -] 0.5 mg NR 0600,1000,1400,1800 tablet 03/19/18 Sertraline HCl [Zoloft -] 50 mg GT DAILY tablet 03/19/18 Tamsulosin HCl [Flomax] 0.4 mg PO DAILY #0 cap 03/19/18 Warfarin Na [Coumadin -] 7.5 mg GT DAILY@1800 #0 tab 03/19/18
--- NOTE | 2018-03-19 10:28 | PN ---
Progress Note (short form) - Note Progress Note: REPEAT CT HEAD W/O CONTRAST R/O BRAIN BLEED FROM HIGH INR
[2018-03-19] MEDS: VALSARTAN 160 MG TABLET (UD) PEG SCH ×2 (10:35→21:54)
[2018-03-19] MEDS: amLODIPine BESYLATE 10 MG TABLET (FP) GT SCH (10:35)
[2018-03-19] MEDS: AMINO ACIDS/PROTEIN HYDROLYS 30 ML LIQUID.PKT GT SCH (10:35)
[2018-03-19] MEDS: SERTRALINE HCL 50 MG TABLET (FP) GT SCH (10:35)
[2018-03-19] MEDS: levETIRAcetam 500 MG/5 ML ORAL SOLUTION (UNIT-DOSE CUPS) GT SCH ×2 (10:35→21:54)
[2018-03-19] MEDS: CARVEDILOL 25 MG TABLET (FP) PEG SCH ×2 (10:35→21:54)
[2018-03-19] MEDS: hydrALAZINE HCL 10 MG TABLET GT SCH ×2 (10:35→21:54)
[2018-03-19] MEDS: RANITIDINE HCL 150 MG/10 ML UNIT-DOSE GT SCH ×2 (10:37→21:54)
[2018-03-19] MEDS: NITROFURANTOIN MACROCRYSTAL 50 MG CAPSULE (FP) GT SCH ×3 (12:11→23:10)
[2018-03-19] MEDS: TAMSULOSIN HCL 0.4 MG CAP.ER.24H (FP) PO SCH (16:35)
[2018-03-19] MEDS ORDERED: QUEtiapine FUMARATE 25 MG TABLET (FP) ONE (21:31)
[2018-03-19] MEDS: ATORVASTATIN CA 40 MG TABLET (FP) GT SCH (21:54)
[2018-03-19] MEDS: QUEtiapine FUMARATE 50 MG TABLET GT SCH (21:54)
[2018-03-19] MEDS: MELATONIN 1 MG TABLET PO SCH (21:55)
[2018-03-20] MEDS: NITROFURANTOIN MACROCRYSTAL 50 MG CAPSULE (FP) GT SCH ×3 (05:38→17:19)
[2018-03-20] MEDS: CARBIDOPA/LEVODOPA 25/250 TABLET (FP) PO SCH ×4 (05:38→17:23)
[2018-03-20] MEDS: rOPINIRole HCL 0.5 MG TABLET NR SCH ×4 (05:38→17:19)
[2018-03-20 07:20] LABS: HEMATOCRIT 35.1 % (35.4-49); HEMOGLOBIN 12.5 GM/dL (11.7-16.9); MCH 31.7 pg (25.7-33.7); MCHC 35.5 g/dl (32.0-35.9); MEAN CELL VOLUME 89.3 fl (80-96); MEAN PLT VOLUME 8.2 fl (7.5-11.1); PLATELET COUNT 202 K/MM3 (134-434); RBC 3.93 M/mm3 (4.00-5.60); RDW 14.8 % (11.9-15.9); WHITE BLOOD COUNT 6.5 K/mm3 (4.0-10.0)
[2018-03-20 07:33] LABS: INR 1.96 (0.82-1.09); PROTHROMBIN TIME (PATIENT) 22.1 SEC (9.7-13.0)
[2018-03-20 07:46] LABS: ANION GAP 2 (8-16); BLOOD UREA NITROGEN 16 mg/dL (7-18); CALCIUM 8.4 mg/dL (8.5-10.1); CHLORIDE 105 mmol/L (98-107); CO2 31 mmol/L (21-32); CREATININE 0.6 mg/dL (0.7-1.3); GLUCOSE,RANDOM 109 mg/dL (74-106); POTASSIUM 3.7 mmol/L (3.5-5.1); SODIUM 138 mmol/L (136-145)
[2018-03-20] MEDS ORDERED: PT OWN MED DRAWER 7, Y5N ONE (08:55)
[2018-03-20] MEDS: hydrALAZINE HCL 10 MG TABLET GT SCH (09:08)
[2018-03-20] MEDS: TAMSULOSIN HCL 0.4 MG CAP.ER.24H (FP) PO SCH (09:08)
[2018-03-20] MEDS: CARVEDILOL 25 MG TABLET (FP) PEG SCH ×2 (09:08→18:09)
[2018-03-20] MEDS: amLODIPine BESYLATE 10 MG TABLET (FP) GT SCH (09:08)
[2018-03-20] MEDS: VALSARTAN 160 MG TABLET (UD) PEG SCH (09:08)
[2018-03-20] MEDS: SERTRALINE HCL 50 MG TABLET (FP) GT SCH (09:09)
[2018-03-20] MEDS: levETIRAcetam 500 MG/5 ML ORAL SOLUTION (UNIT-DOSE CUPS) GT SCH (09:09)
[2018-03-20] MEDS: RANITIDINE HCL 150 MG/10 ML UNIT-DOSE GT SCH (09:10)
--- NOTE | 2018-03-20 09:36 | PN ---
Progress Note (short form) - Note Progress Note: DISCHARGE ORDERS CONTINUE AWAIT AUTHORIZATION INR 1.9 CAN RESTART WARFARIN THERAPY DC PLANNING TO SNF
--- NOTE | 2018-03-20 09:45 | PN ---
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 Selected Entries 03/19/18 03/19/18 03/19/18 02:00 06:00 10:00 Temperature 98.3 F 98.2 F 97.8 F 03/19/18 03/19/18 03/19/18 15:36 17:00 18:00 Temperature 98.3 F 98.8 F 98.8 F 03/19/18 03/20/18 21:00 06:00 Temperature 98.3 F 98.2 F Laboratory Tests 03/20/18 06:30 WBC 6.5 Pt verbal, appropriate for me, Sinhala speaking. Intermittent reduction in intelligibilty sec Parkinsons and chronic L MCA infarct/ b/l Cerebellar infarcts. Excellent potential to tolerate PO intake and reduce GT feedings with intensive sp and swallowing tx.
[2018-03-20] MEDS ORDERED: WARFARIN NA 7.5 MG TABLET (FP) PO SCH (18:00)
[2018-03-20 18:04] VITALS: BP 128/79; PULSE 66; TEMP 98.2
== END 2018-03-20 19:05 | DRG 689 ==
LOC: JER 00:40 → JERBED 05:22 → UNDOADMOB 05:34 → JERBED 05:34 → OBSVTOIN 08:47 → J4S 14:43
PROVIDERS: ADMIT Family Medicine; ATTEND Family Medicine
PROC: 3E0G76Z Introduction of Nutritional Substance into Upper GI, Via Natural or Artificial Opening (ICD-10-PCS; principal; 2018-03-17)
DX: N39.0 Urinary tract infection, site not specified (principal); G93.41 Metabolic encephalopathy; I48.1 Persistent atrial fibrillation; F02.81 Dementia in other diseases classified elsewhere, unspecified severity, with behavioral disturbance; G20 Parkinson's disease; Z86.73 Personal history of transient ischemic attack (TIA), and cerebral infarction without residual deficits; Z79.01 Long term (current) use of anticoagulants; Z88.0 Allergy status to penicillin; I48.91 Unspecified atrial fibrillation; N40.0 Benign prostatic hyperplasia without lower urinary tract symptoms; I10 Essential (primary) hypertension; K21.9 Gastro-esophageal reflux disease without esophagitis; R79.1 Abnormal coagulation profile; R13.10 Dysphagia, unspecified; Z93.1 Gastrostomy status; R45.1 Restlessness and agitation
CPT/HCPCS: 36415; 70450-TC; 71045-TC-FY; 74230-TC-FY; 80048; 80053; 81003; 81015; 82962; 83735; 83880; 84484; 85025; 85027; 85610; 85730; 87040; 87086; 87186; 92611-GN; 93005; 93010; 97116-GP; 97161-GP; 99285-25; G0378; J7030

== ENCOUNTER 2018-07-28 17:41 | Emergency (ER) | payer MEDICARE, OTHER ==
--- NOTE | 2018-07-28 17:59 | PDOC ---
Rapid Medical Evaluation Time Seen by Provider: 07/28/18 17:56 Medical Evaluation: Allergies Allergy/AdvReac Type Severity Reaction Status Date / Time Penicillins Allergy Verified 03/17/18 00:43 07/28/18 17:56 I have performed a brief in-person evaluation of this patient. The patient presents with a chief complaint of: feeding tube cap broke since friday Pertinent physical exam findings:G tube noted in R abd, missing cap I have ordered the following:none The patient will proceed to the ED for further evaluation. 07/28/18 18:00 Discharge Disposition - Diagnosis Feeding tube obstruction Qualifiers: Encounter type: initial encounter Qualified Code(s): T85.598A - Other mechanical complication of other gastrointestinal prosthetic devices, implants and grafts, initial encounter - Referrals Referrals: Susan Martinez [Primary Care Provider] - - Patient Instructions - Post Discharge Activity
[2018-07-28 18:00] VITALS: BP 159/98; PULSE 93; TEMP 99.3; BMI 19.8
--- NOTE | 2018-07-28 19:29 | PDOC ---
History of Present Illness - General Chief Complaint: G Tube Problem Stated Complaint: Tube Problem Time Seen by Provider: 07/28/18 17:56 - History of Present Illness Initial Comments: 07/28/18 20:22 The patient is an 78 year old male with a history of afib, CVA, BPH, HTN, HLD, s /p g-tube who presents for evaluation of a broken g-tube. The patient is accompanied by family who assist in providing history. They note that the patient's g-tube top broke 5 days ago and they have been having difficulty giving medications through the tube prompting his presentation to the ED for further evaluation. ROS is limited given the patient's baseline mental status from his former CVA. Past History - Past Medical History Allergies/Adverse Reactions: Allergies Allergy/AdvReac Type Severity Reaction Status Date / Time Penicillins Allergy Verified 07/28/18 18:00 Home Medications: Ambulatory Orders Acetaminophen [Tylenol] 325 mg GT TID PRN 01/14/18 Atorvastatin Ca [Lipitor] 40 mg PO HS 01/14/18 Bacitracin - [Bacitracin Topical Ointment -] 1 applic TP BID tube 01/27/18 Carbidopa/Levodopa 25/100 [Sinemet 25/100 -] 2 each PEG 0700,1100,1500,1900 tablet 01/27/18 Carvedilol [Coreg -] 25 mg PEG BID tablet 01/27/18 Valsartan [Diovan] 160 mg PEG BID tablet 01/27/18 levETIRAcetam [Keppra Oral Solution -] 500 mg GT BID cup 01/27/18 Amlodipine Besylate 10 mg GT DAILY 03/17/18 Entacapone [Comtan -] 200 mg GT BID 03/17/18 Hydralazine HCl 10 mg GT BID 03/17/18 L. Acidophilus/Bifid. Animalis [Probiotic 5 Billion Cell Cap] 1 each GT DAILY Melatonin 3 ml GT HS 03/17/18 Menthol [Bengay Ultra Strength] 1 each TP DAILY 03/17/18 Nut.tx. Metabolic Disorder,Soy [Perative] 1,500 ml GT 1700 03/17/18 Pyridoxine HCl (B-6) [Vitamin B6 -] 100 mg GT DAILY 03/17/18 Scopolamine [Transderm-Scop] 1 each TD Q72H 03/17/18 Vitamin B Complex [B Complex] 1 each GT DAILY 03/17/18 Amino Acids/Protein Hydrolys [Prosource No Carb Liquid Pkt] 30 ml GT BID@0800, 1730 packet 03/19/18 Carbidopa/Levodopa 25/250 [Sinemet 25/250 -] 1 each PO 0600,1000,1400,1800 tablet 03/19/18 Quetiapine Fumarate [Seroquel -] 25 mg PO HS tablet 03/19/18 Ranitidine Oral Solution [Zantac Oral Solution -] 150 mg GT BID cup 03/19/18 Ropinirole HCl [Requip -] 0.5 mg NR 0600,1000,1400,1800 tablet 03/19/18 Sertraline HCl [Zoloft -] 50 mg GT DAILY tablet 03/19/18 Tamsulosin HCl [Flomax] 0.4 mg PO DAILY #0 cap 03/19/18 Warfarin Na [Coumadin -] 7.5 mg GT DAILY@1800 #0 tab 03/19/18 Cardiac Disorders: Yes (afib) CVA: Yes COPD: No GI Disorders: (GI BLEED) Disorders: Yes (BPH) HTN: Yes Hypercholesterolemia: Yes Seizures: Yes - Surgical History Abdominal Surgery: Yes (ING HERNIA) - Suicide/Smoking/Psychosocial Hx Smoking History: Never smoked Have you smoked in the past 12 months: No Information on smoking cessation initiated: No Hx Alcohol Use: No Drug/Substance Use Hx: No Substance Use Type: None Hx Substance Use Treatment: No Review of Systems - Review of Systems Able to Perform ROS?: No (CVA) *Physical Exam - Vital Signs Last Vital Signs Temp Pulse Resp BP Pulse Ox 99.3 F 93 H 16 159/98 100 07/28/18 17:58 07/28/18 17:58 07/28/18 17:58 07/28/18 17:58 07/28/18 17:58 - Physical Exam Comments: 07/28/18 20:27 General Appearance: Nourished. No Apparent Distress HEENT: No Pharyngeal Erythema, Tonsillar Exudate, Tonsillar Erythema Neck: No Cervical Lymphadenopathy Respiratory/Chest: Lungs Clear, Normal Breath Sounds. No Crackles, Rales, Rhonchi, Wheezing Cardiovascular: Regular Rhythm, Regular Rate. No Murmur, Gallops, Rubs Gastrointestinal/Abdominal: Normal Bowel Sounds, Soft. G-tube in place with broken g-tube port. No Guarding, Rebound, Tenderness Musculoskeletal: No CVA Tenderness Extremity: Normal Capillary Refill Integumentary: Normal Color, Dry, Warm Neurologic: Alert, Normal Mood/Affect, Procedures - Additional Procedures Additional Procedures: gastric tube replacement Medical Decision Making - Medical Decision Making 07/28/18 20:28 The patient is an 78 year old male with a history of afib, CVA, BPH, HTN, HLD, s /p g-tube who presents for evaluation of a broken g-tube. Given the patient's history and physical exam, the patient will require g-tube replacement. The patient's g-tube was originally placed January of 2018. We successfully changed the patient's g-tube with a 16 amharic tube. We will obtain a plain film with gastrograffin to confirm placement. 07/28/18 20:57 Plain film demonstrates properly placed g-tube as read by our radiologist. We are comfortable discharging the patient home with gi follow up. We discussed the results, plan, and return precautions with the patient who voiced understanding and is agreeable with the plan. *DC/Admit/Observation/Transfer Diagnosis at time of Disposition: PEG tube malfunction - Discharge Dispostion Disposition: HOME Condition at time of disposition: Stable Decision to Admit order: No - Referrals Referrals: Susan Martinez [Primary Care Provider] - - Patient Instructions Printed Discharge Instructions: How to Care for Your PEG Tube Additional Instructions: Please return to the ER if you experience concerning or worsening symptoms including worsening abdominal pain. Your g-tube was successfully replaced here in the ED. Please call to schedule a follow up appointment with your gi specialist and primary care provider within 2-3 days to discuss your ER visit and further management of your symptoms. - Post Discharge Activity
--- NOTE | 2018-07-28 19:40 | PDOC ---
Attending Attestation - Resident Resident Name: Hawk Salamancael - ED Attending Attestation I have performed the following: I have examined & evaluated the patient, The case was reviewed & discussed with the resident, I agree w/resident's findings & plan, Exceptions are as noted - HPI HPI: 07/28/18 19:39 78 yo male BIBA from [place] for placement of g tube that fell out 2 days ago - Physicial Exam PE: 07/28/18 19:58 thin 78 yo male p/w daughter from home in no acute distress head ncat oral edenentulous arches,dry mucus membranes neck no jvd lings cta b/l cvs [id number] abd g tube in now placed,nontender abd,flat ext no edema skin wrm and dry neuro alert,good hand grasp - Medical Decision Making 07/28/18 20:01 plan KUB w gasrtrogaffin 07/28/18 21:08 KUB shows good placement, pt discharged home
== END 2018-07-28 21:09 | disposition home or self-care (01) ==
LOC: JER 17:41
PROC: 0DH63UZ Insertion of Feeding Device into Stomach, Percutaneous Approach (ICD-10-PCS; principal; 2018-07-28)
PROC: 3E0G76Z Introduction of Nutritional Substance into Upper GI, Via Natural or Artificial Opening (ICD-10-PCS; 2018-07-28)
DX: K94.23 Gastrostomy malfunction (principal); I48.91 Unspecified atrial fibrillation; N40.0 Benign prostatic hyperplasia without lower urinary tract symptoms; E78.5 Hyperlipidemia, unspecified; Z86.73 Personal history of transient ischemic attack (TIA), and cerebral infarction without residual deficits
CPT/HCPCS: 74019-TC-FY; 99281-25